=== PATIENT | male | born 1960 | race Caucasian/White ===

== ENCOUNTER 2017-11-14 06:44 | Emergency (ER) | payer OTHER ==
[2017-11-14] MEDS ORDERED: ONDANSETRON 4 MG/2 ML VIAL ONE (07:41)
[2017-11-14] MEDS ORDERED: NA CHLORIDE 0.9% 1,000 ML ONE (07:41)
[2017-11-14] MEDS ORDERED: TERBUTALINE SULF 1 MG/1ML ONE (07:41)
[2017-11-14] MEDS ORDERED: FENTANYL CITR 100 MCG/2 ML ONE (07:41)
[2017-11-14] MEDS ORDERED: NA CHLORIDE 0.9% 500 ML ONE (07:42)
[2017-11-14] MEDS ORDERED: LIDOCAINE 1% MPF 5 ML VIAL ONE (07:57)
[2017-11-14] MEDS ORDERED: TERBUTALINE SULF 1 MG/1ML SQ ONE (08:00)
[2017-11-14] MEDS ORDERED: PHENYLEPHRINE HCL SQ SCH (08:00)
[2017-11-14] MEDS ORDERED: NS 0.9% SQ SCH (08:00)
[2017-11-14 08:05] LABS: Absolute Lymphocytes (CBC) 1.3 K/uL (0.7-4.9); Absolute Monocytes 0.8 K/uL (0.1-1.3); Absolute Neutrophil 10.5 K/uL (1.8-8.0); Basophils % 0.5 % (0-1.3); Eosinophils % 0.4 % (0-4.4); Hematocrit 43.2 % (39.6-49.0); MCH 28.9 pg (27.0-35.0); MCV 85.8 fL (80-100); MPV 8.7 fL (7.6-11.3); Monocytes % 6.5 % (3.3-12.3); RBC Red Blood Cell Count 5.04 M/uL (4.33-5.43)
[2017-11-14 08:06] LABS: Protime INR 1.08
[2017-11-14] MEDS ORDERED: CEFAZOLIN/SWI 1gm 1 GM/10 ML SYR ONE (08:09)
--- NOTE | 2017-11-14 08:19 | RAD REPORT ---
EXAM DESCRIPTION: RAD - Chest Single View - 11/14/2017 8:02 am CLINICAL HISTORY: Cough COMPARISON: March 2012 TECHNIQUE: AP portable chest image was obtained 0751 hours . FINDINGS: Lung volumes are low. No focal lung parenchymal process. Cardiomediastinal silhouette and vasculature within normal limits for shallow inspiration and large body habitus. Heart and vasculatur e are normal. No measurable pleural effusion and no pneumothorax. No gross bony abnormality seen. No acute aortic findings suspected. IMPRESSION: No acute cardiopulmonary process. No significant interval change.
[2017-11-14 08:22] LABS: ALT/SGPT 25 U/L (12-78); AST/SGOT 18 U/L (15-37); Albumin 3.7 g/dL (3.4-5.0); Alkaline Phosphatase 86 U/L (45-117); BUN Blood Urea Nitrogen 11 mg/dL (7-18); Bicarbonate 28 mmol/L (21-32); Bilirubin Direct 0.1 mg/dL (0-0.2); Bilirubin Total 0.4 mg/dL (0.2-1.0); CKMB Creatine Kinase MB < 1.0 ng/mL (0.3-3.6); Creatine Phosphokinase 131 U/L (39-308); Glucose Level 119 mg/dL (74-106); NT PRO-BNP 38 pg/mL (<125); Potassium 4.1 mmol/L (3.5-5.1); Protein, Total 7.9 g/dL (6.4-8.2); Sodium Level 136 mmol/L (136-145)
--- NOTE | 2017-11-14 08:39 | ER ---
Nurse's Notes [facility] Name: Tariq Garcia Age: 57 yrs Sex: Male : 1960 Arrival Date: 11/14/2017 Time: 06:45 Bed 5 Private MD: Mango Forte Diagnosis: Priapism, drug-induced;Priapism;Type 2 diabetes mellitus Presentation: 11/14 06:52 Presenting complaint: Patient states: I injected "empower" medication for ED in to my la1 penis last night around 1130 last night and I had a full erection for 4 hours and it is still not going down all the way. Transition of care: patient was not received from another setting of care. Onset of symptoms was November 14, 2017. Risk Assessment: Do you want to hurt yourself or someone else? Patient reports no desire to harm self or others. Initial Sepsis Screen: Does the patient meet any 2 criteria? No. Patient's initial sepsis screen is negative. Does the patient have a suspected source of infection? No. Patient's initial sepsis screen is negative. Care prior to arrival: None. 06:52 Method Of Arrival: Ambulatory la1 06:52 Acuity: ELA 2 la1 Historical: - Allergies: 06:53 Morphine; la1 - Home Meds: 07:15 Empower (Papaverine HCL 150mg, phentolamine Mesylate 10mg, Prostaglandin E1 100mcg, aa5 Atropine Sulfate 1mg) for Erectile dysfunction [Active]; methocarbamol 500 mg Oral tab twice a day [Active]; tramadol 50 mg Oral tab twice a day [Active]; metformin 500 mg Oral tab 1 tab 2 times per day [Active]; levothyroxine 50 mcg tab 1 tab once daily [Active]; fluoxetine 60 mg oral tab once daily [Active]; atorvastatin 20 mg oral tab 1 tab once daily [Active]; oxybutynin chloride 5 mg Oral tab 2 times per day [Active]; lisinopril 40 mg Oral tab 1 tab once daily [Active]; tadalafil oral 7mg Daily oral [Active]; Sudafed 120mg Oral [Active]; - PMHx: 06:53 Diabetes - NIDDM; Hypothyroidism; Hypertension; la1 - Immunization history:: Adult Immunizations up to date. - Social history:: Smoking status: Patient/guardian denies using tobacco. - Ebola Screening: : No symptoms or risks identified at this time. Screenin:05 Abuse screen: Denies threats or abuse. Nutritional screening: No deficits noted. jb4 Tuberculosis screening: No symptoms or risk factors identified. Fall Risk None identified. Assessment: 07:05 General: Appears in no apparent distress. uncomfortable, Behavior is calm, cooperative, jb4 appropriate for age. Pain: Complains of pain in Penis Pain does not radiate. Pain currently is 10 out of 10 on a pain scale. at worst was 10 out of 10 on a pain scale. Quality of pain is described as throbbing, Pain began 2330 last night. Is continuous. Neuro: Level of Consciousness is awake, alert, obeys commands, Oriented to person, place, time, situation. Cardiovascular: Heart tones S1 S2 present Patient's skin is warm and dry. Respiratory: Airway is patent Respiratory effort is even, unlabored, Respiratory pattern is regular, symmetrical, Breath sounds are clear bilaterally. GI: No signs and/or symptoms were reported involving the gastrointestinal system. : Pt with erection. States " I have had this erection for 7-8 hours.". Pain reported. No discoloration noted. Reports Difficulty urinating. EENT: No signs and/or symptoms were reported regarding the EENT system. Derm: Skin is intact, Skin is pink, warm \\T\\ dry. Musculoskeletal: No signs and/or symptoms reported regarding the musculoskeletal system. 08:45 Reassessment: Patient and/or family updated on plan of care and expected duration. Pain aa5 level reassessed. Patient is alert, oriented x 3, equal unlabored respirations, skin warm/dry/pink. Patient states feeling better. Pain: Pain currently is 5 out of 10 on a pain scale. 09:15 Reassessment: Patient and/or family updated on plan of care and expected duration. Pain aa5 level reassessed. Patient is alert, oriented x 3, equal unlabored respirations, skin warm/dry/pink. Patient states symptoms have improved. Pt states "my penis is back to normal now" . Pain: Pain currently is 2 out of 10 on a pain scale. 09:30 Reassessment: Notified pt of need to collect urine, pt states "I can't pee right now, I aa5 don't think I have any urine", was notified and VO for bladder scan was obtained. . 09:35 Reassessment: Bladder scan completed, TV: 82 cc, was notified and states to d/c pt aa5 home now. . Vital Signs: 06:53 BP 139 / 100; Pulse 121; Resp 16; Temp 98.4; Pulse Ox 96% on R/A; Weight 138.35 kg; la1 Height 5 ft. 7 in. (170.18 cm); 07:30 BP 135 / 102; Pulse 112; Resp 18 S; Pulse Ox 96% on R/A; aa5 08:00 BP 121 / 91; Pulse 105; Resp 16 S; Pulse Ox 97% on 2 lpm NC; aa5 08:30 BP 134 / 94; Pulse 115; Resp 18 S; Pulse Ox 97% on 2 lpm NC; aa5 08:45 BP 113 / 76; Pulse 112; Resp 14 S; Pulse Ox 96% on 2 lpm NC; aa5 09:15 BP 105 / 82; Pulse 105; Resp 15; Pulse Ox 96% on R/A; jb1 06:53 Body Mass Index 47.77 (138.35 kg, 170.18 cm) la1 ED Course: 06:45 Patient arrived in ED. ds1 06:53 Triage completed. la1 06:54 Arm band placed on left wrist. la1 06:56 Mango Forte DO is Private Physician. ds1 07:05 Patient has correct armband on for positive identification. Placed in gown. Bed in low jb4 position. Call light in reach. Side rails up X 1. Pulse ox on. NIBP on. 07:10 Inserted saline lock: 20 gauge in right antecubital area, using aseptic technique. jb4 Blood collected. 07:12 Tariq Krueger, RN is Primary Nurse. jb4 07:20 Stanley Zuniga MD is Attending Physician. pankaj 08:01 X-ray completed. Portable x-ray completed in exam room. kp1 08:01 XRAY Chest (1 view) In Process Unspecified. EDMS 08:30 aspiration of the corpus cavernosum, 40 cc aspirated to right side and 19 cc aspirated aa5 to left side by Dr. Li (urologist). Pt tolerated well. Significant improvement of symptoms. 08:37 Mango Forte DO is Referral Physician. pankaj 08:37 Janelle Li MD is Referral Physician. pankaj 09:52 Initial lab(s) drawn, by me, sent to lab. IV discontinued, intact, bleeding controlled. jb4 Administered Medications: 07:40 Drug: Zofran 4 mg Route: IVP; Site: right antecubital; jb4 08:20 Follow up: Response: No adverse reaction jb4 07:43 Drug: fentaNYL (PF) 50 mcg Route: IVP; Site: right antecubital; jb4 08:20 Follow up: Response: No adverse reaction jb4 07:50 Drug: Terbutaline 0.5 mg Route: Sub-Q; Site: right upper arm; jb4 08:20 Follow up: Response: No adverse reaction jb4 07:51 Drug: NS 0.9% 1000 ml Route: IV; Rate: 125 ml/hr; Site: right antecubital; jb4 09:53 Follow up: Response: No adverse reaction; IV Status: Completed infusion jb4 07:52 Drug: NS 0.9% 500 ml Route: IV; Rate: bolus; Site: right antecubital; jb4 08:40 Follow up: Response: No adverse reaction; IV Status: Completed infusion jb4 07:55 Not Given (Pt reports taking Pseudoephedrine 120mg just MD TAZ notified): aa5 Pseudoephedrine 60 mg PO once 08:05 Drug: Ancef 1 grams Route: IVPB; Site: right antecubital; jb4 08:35 Follow up: Response: No adverse reaction; IV Status: Completed infusion jb4 08:30 Drug: Phenylephrine 0.6 mg {Note: administered to penis intermittently by Dr. Li aa5 during aspiration of the corpus cavernosum.} Route: IV; Rate: calculated rate; Site: Other; 09:23 Follow up: Response: No adverse reaction; IV Status: Completed infusion jb4 08:46 Drug: fentaNYL (PF) 50 mcg Route: IVP; Site: right antecubital; aa5 09:23 Follow up: Response: No adverse reaction jb4 Outcome: 08:38 Discharge ordered by . [facility] 09:51 Discharged to home ambulatory. jb4 09:51 Condition: stable 09:51 Discharge instructions given to patient, family, Instructed on discharge instructions, follow up and referral plans. medication usage, Demonstrated understanding of instructions, follow-up care, medications, Prescriptions given X 2. 09:52 Patient left the ED. jb4 Signatures: Dispatcher [employer] EDMS DanielleFan rudolph jb1 Stanley Zuniga MD MD cha Sanford, Demi ds1 Janet English, RN RN aa5 Andrade Amezquita RN RN la1 Tariq Krueger, DEANNA RN jb4 Tona Smith kp1 Corrections: (The following items were deleted from the chart) 08:55 08:30 aspiration of the corpus callosum, 40 cc aspirated to right side and 19 cc aa5 aspirated to left side by Dr. Li (urologist). Pt tolerated well. Significant improvement of symptoms. aa5 09:20 09:20 Response: No adverse reaction jb4 jb4
--- NOTE | 2017-11-14 08:39 | EDPHYS ---
Physician Documentation [facility] Name: Tariq Garcia Age: 57 yrs Sex: Male : 1960 Arrival Date: 11/14/2017 Time: 06:45 Bed 5 Private MD: [facility] ED Physician Stanley Zuniga HPI: 11/14 07:29 This 57 yrs old Male presents to ER via Ambulatory with complaints of Penile pankaj Pain. Historical: - Allergies: 06:53 Morphine; la1 - Home Meds: 07:15 Empower (Papaverine HCL 150mg, phentolamine Mesylate 10mg, Prostaglandin E1 100mcg, aa5 Atropine Sulfate 1mg) for Erectile dysfunction [Active]; methocarbamol 500 mg Oral tab twice a day [Active]; tramadol 50 mg Oral tab twice a day [Active]; metformin 500 mg Oral tab 1 tab 2 times per day [Active]; levothyroxine 50 mcg tab 1 tab once daily [Active]; fluoxetine 60 mg oral tab once daily [Active]; atorvastatin 20 mg oral tab 1 tab once daily [Active]; oxybutynin chloride 5 mg Oral tab 2 times per day [Active]; lisinopril 40 mg Oral tab 1 tab once daily [Active]; tadalafil oral 7mg Daily oral [Active]; Sudafed 120mg Oral [Active]; - PMHx: 06:53 Diabetes - NIDDM; Hypothyroidism; Hypertension; la1 - Immunization history:: Adult Immunizations up to date. - Social history:: Smoking status: Patient/guardian denies using tobacco. - Ebola Screening: : No symptoms or risks identified at this time. ROS: 07:36 Constitutional: Negative for fever, chills, and weight loss, Eyes: Negative for injury, pankaj pain, redness, and discharge, ENT: Negative for injury, pain, and discharge, Neck: Negative for injury, pain, and swelling, Cardiovascular: Negative for chest pain, palpitations, and edema, Respiratory: Negative for shortness of breath, cough, wheezing, and pleuritic chest pain, Abdomen/GI: Negative for abdominal pain, nausea, vomiting, diarrhea, and constipation, Back: Negative for injury and pain, MS/Extremity: Negative for injury and deformity, Skin: Negative for injury, rash, and discoloration, Neuro: Negative for headache, weakness, numbness, tingling, and seizure, Psych: Negative for depression, anxiety, suicide ideation, homicidal ideation, and hallucinations, Allergy/Immunology: Negative for hives, rash, and allergies, Endocrine: Negative for neck swelling, polydipsia, polyuria, polyphagia, and marked weight changes, Hematologic/Lymphatic: Negative for swollen nodes, abnormal bleeding, and unusual bruising. 07:36 : Positive for penile pain, of the head of penis and shaft of penis. Exam: 07:36 Constitutional: This is a well developed, well nourished patient who is awake, alert, pankaj and in no acute distress. Head/Face: Normocephalic, atraumatic. Eyes: Pupils equal round and reactive to light, extra-ocular motions intact. Lids and lashes normal. Conjunctiva and sclera are non-icteric and not injected. Cornea within normal limits. Periorbital areas with no swelling, redness, or edema. ENT: Nares patent. No nasal discharge, no septal abnormalities noted. Tympanic membranes are normal and external auditory canals are clear. Oropharynx with no redness, swelling, or masses, exudates, or evidence of obstruction, uvula midline. Mucous membranes moist. Neck: Trachea midline, no thyromegaly or masses palpated, and no cervical lymphadenopathy. Supple, full range of motion without nuchal rigidity, or vertebral point tenderness. No Meningismus. Chest/axilla: Normal chest wall appearance and motion. Nontender with no deformity. No lesions are appreciated. Cardiovascular: Regular rate and rhythm with a normal S1 and S2. No gallops, murmurs, or rubs. Normal PMI, no JVD. No pulse deficits. Respiratory: Lungs have equal breath sounds bilaterally, clear to auscultation and percussion. No rales, rhonchi or wheezes noted. No increased work of breathing, no retractions or nasal flaring. Abdomen/GI: Soft, non-tender, with normal bowel sounds. No distension or tympany. No guarding or rebound. No evidence of tenderness throughout. Back: No spinal tenderness. No costovertebral tenderness. Full range of motion. Skin: Warm, dry with normal turgor. Normal color with no rashes, no lesions, and no evidence of cellulitis. MS/ Extremity: Pulses equal, no cyanosis. Neurovascular intact. Full, normal range of motion. Neuro: Awake and alert, GCS 15, oriented to person, place, time, and situation. Cranial nerves II-XII grossly intact. Motor strength 5/5 in all extremities. Sensory grossly intact. Cerebellar exam normal. Normal gait. Psych: Awake, alert, with orientation to person, place and time. Behavior, mood, and affect are within normal limits. 07:36 : Male external genitalia: swelling, penile, tenderness, of the head of penis and shaft of penis is noted. Vital Signs: 06:53 BP 139 / 100; Pulse 121; Resp 16; Temp 98.4; Pulse Ox 96% on R/A; Weight 138.35 kg; la1 Height 5 ft. 7 in. (170.18 cm); 07:30 BP 135 / 102; Pulse 112; Resp 18 S; Pulse Ox 96% on R/A; aa5 08:00 BP 121 / 91; Pulse 105; Resp 16 S; Pulse Ox 97% on 2 lpm NC; aa5 08:30 BP 134 / 94; Pulse 115; Resp 18 S; Pulse Ox 97% on 2 lpm NC; aa5 08:45 BP 113 / 76; Pulse 112; Resp 14 S; Pulse Ox 96% on 2 lpm NC; aa5 09:15 BP 105 / 82; Pulse 105; Resp 15; Pulse Ox 96% on R/A; jb1 06:53 Body Mass Index 47.77 (138.35 kg, 170.18 cm) la1 Procedures: 08:41 Performed aspiration and injection by Dr. Li. [facility] MDM: 07:20 Patient medically screened. [facility] 07:37 Data reviewed: vital signs, nurses notes, lab test result(s), EKG, radiologic studies, pankaj plain films. 11/14 07:25 Order name: Basic Metabolic Panel [facility] 11/14 07:25 Order name: CBC with Diff [facility] 11/14 07:25 Order name: Ckmb [facility] 11/14 07:25 Order name: CPK [facility] 11/14 07:25 Order name: LFT's [facility] 11/14 07:25 Order name: Magnesium [facility] 11/14 07:25 Order name: NT PRO-BNP [facility] 11/14 07:25 Order name: PT-INR [facility] 11/14 07:25 Order name: Ptt, Activated [facility] 11/14 07:25 Order name: Troponin (emerg Dept Use Only) [facility] 11/14 07:25 Order name: XRAY Chest (1 view) [facility] 11/14 07:25 Order name: EKG; Complete Time: 07:26 [facility] 11/14 07:25 Order name: Cardiac monitoring; Complete Time: 07:30 [facility] 11/14 07:25 Order name: EKG - Nurse/Tech; Complete Time: 07:44 [facility] 11/14 07:25 Order name: IV Saline Lock; Complete Time: 07:30 [facility] 11/14 07:25 Order name: Labs collected and sent; Complete Time: 07:54 [facility] 11/14 07:25 Order name: O2 Per Protocol; Complete Time: 07:30 [facility] 11/14 07:25 Order name: O2 Sat Monitoring; Complete Time: 07:31 [facility] 11/14 07:36 Order name: Oxygen; Complete Time: 07:54 [facility] 11/14 08:00 Order name: NPO; Complete Time: 08:01 [facility] Administered Medications: 07:40 Drug: Zofran 4 mg Route: IVP; Site: right antecubital; jb4 08:20 Follow up: Response: No adverse reaction jb4 07:43 Drug: fentaNYL (PF) 50 mcg Route: IVP; Site: right antecubital; jb4 08:20 Follow up: Response: No adverse reaction jb4 07:50 Drug: Terbutaline 0.5 mg Route: Sub-Q; Site: right upper arm; jb4 08:20 Follow up: Response: No adverse reaction jb4 07:51 Drug: NS 0.9% 1000 ml Route: IV; Rate: 125 ml/hr; Site: right antecubital; jb4 09:53 Follow up: Response: No adverse reaction; IV Status: Completed infusion jb4 07:52 Drug: NS 0.9% 500 ml Route: IV; Rate: bolus; Site: right antecubital; jb4 08:40 Follow up: Response: No adverse reaction; IV Status: Completed infusion jb4 07:55 Not Given (Pt reports taking Pseudoephedrine 120mg just MD TAZ notified): aa5 Pseudoephedrine 60 mg PO once 08:05 Drug: Ancef 1 grams Route: IVPB; Site: right antecubital; jb4 08:35 Follow up: Response: No adverse reaction; IV Status: Completed infusion jb4 08:30 Drug: Phenylephrine 0.6 mg {Note: administered to penis intermittently by Dr. Li aa5 during aspiration of the corpus cavernosum.} Route: IV; Rate: calculated rate; Site: Other; 09:23 Follow up: Response: No adverse reaction; IV Status: Completed infusion jb4 08:46 Drug: fentaNYL (PF) 50 mcg Route: IVP; Site: right antecubital; aa5 09:23 Follow up: Response: No adverse reaction jb4 Disposition: 11/14/17 08:38 Discharged to Home. Impression: Priapism, drug-induced, Priapism, Type 2 diabetes mellitus. - Condition is Stable. - Discharge Instructions: Priapism, Type 2 Diabetes Mellitus, Self Care, Adult, Type 2 Diabetes Mellitus, Self Care, Adult, [id number]. - Prescriptions for Keflex 500 mg Oral Capsule - take 1 capsule by ORAL route every 6 hours for 10 days; 28 capsule. Tylenol- Codeine #3 300-30 mg Oral Tablet - take 2 tablets by ORAL route every 6 hours As needed; 20 tablet. - Medication Reconciliation Form, Thank You Letter, Antibiotic Education, Prescription Opioid Use form. - Follow up: Mango Forte DO; When: 2 - 3 days; Reason: Recheck today's complaints, Continuance of care, Re-evaluation by your physician. Follow up: Janelle Li MD; When: 2 - 3 days; Reason: Recheck today's complaints, Continuance of care, Re-evaluation by your physician. - Problem is new. - Symptoms have improved. Signatures: Dispatcher [employer] EDMS Stanley Zuniga MD MD cha Calderon, Audri RN RN aa5 Andrade Amezquita RN RN la1 Tariq Krueger RN RN jb4 Corrections: (The following items were deleted from the chart) 08:41 08:38 11/14/2017 08:38 Discharged to Home. Impression: Priapism, drug-induced; pankaj Priapism. Condition is Stable. Forms are Medication Reconciliation Form, Thank You Letter, Antibiotic Education, Prescription Opioid Use. Follow up: Mango Forte; When: 2 - 3 days; Reason: Recheck today's complaints, Continuance of care, Re-evaluation by your physician. Follow up: Janelle Li; When: 2 - 3 days; Reason: Recheck today's complaints, Continuance of care, Re-evaluation by your physician. Problem is new. Symptoms have improved. [facility] 09:40 07:25 Urine Dipstick-Ancillary ordered. [facility] aa5 09:52 08:41 11/14/2017 08:38 Discharged to Home. Impression: Priapism, drug-induced; jb4 Priapism; Type 2 diabetes mellitus. Condition is Stable. Discharge Instructions: Priapism, Type 2 Diabetes Mellitus, Self Care, Adult, Type 2 Diabetes Mellitus, Self Care, Adult, [id number]. Prescriptions for Keflex 500 mg Oral Capsule - take 1 capsule by ORAL route every 6 hours for 10 days; 28 capsule, Tylenol-Codeine #3 300-30 mg Oral Tablet - take 2 tablets by ORAL route every 6 hours As needed; 20 tablet. and Forms are Medication Reconciliation Form, Thank You Letter, Antibiotic Education, Prescription Opioid Use. Follow up: Mango Forte; When: 2 - 3 days; Reason: Recheck today's complaints, Continuance of care, Re-evaluation by your physician. Follow up: Janelle Li; When: 2 - 3 days; Reason: Recheck today's complaints, Continuance of care, Re-evaluation by your physician. Problem is new. Symptoms have improved. [facility]
[2017-11-14 09:58] VITALS: TEMP 98.4
[2017-11-14 10:03] VITALS: O2SAT 96
[2017-11-14 10:04] VITALS: BP 105/82
--- NOTE | 2017-11-14 14:21 | CON ---
History Of Present Illness: A 57-year-old gentleman, a patient of Asmita Briseno, who was on Quad-Mi x and has been using Quad-Mix 0.3 mL for months now, injected himself at 11:30 p.m. last night, had i ntercourse, enjoyed himself and then developed priapism. He took long-acting Sudafed, ice cold showe r as prescribed by Asmita Briseno, but that did not help so he came to the ER about 6 a.m. I was dora led about 7 a.m., came here as soon as I could and he was noted to have a pronounced priapism. In ER , they gave him subcu terbutaline without any resolution. Past Medical History: Diabetes, hypertension, thyroid issues, and prostate cancer. Past Surgical History: Radical retropubic prostatectomy 2 years ago in [place], cholecystectomy. Medications: Metformin, lisinopril. No aspirin. Allergies: HE IS ALLERGIC TO MORPHINE, CAUSES HALLUCINATION, NAUSEA, VOMITING, AND ITCHING. ALSO QU ESTIONABLE ALLERGY TO LATEX. Social History: No tobacco. No smoking. No drug use. Family History: Noncontributory. Review of Systems: A 10-point review of systems otherwise normal. Physical Examination: Vital Signs: Afebrile, stable. Was on a monitor. General Appearance: Alert and oriented. No acute distress. Well-developed male, slightly obese. HEENT: Atraumatic, normocephalic. Chest: Clear. Abdomen: Soft, nontender. : He had an erection about a 9/10 erection. Testicles descended. Prostate: Deferred. Rectal: Deferred. Laboratory Data: None. 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 Plan was to prep and d raped him, use alcohol pads to clean him, injected him with 0.1 mg phenylephrine at the base of the p deborah at 3 and 9 o'clock region. He has a total of 0.4 mg on the right corpora, aspirated 40 mL of da rk venous like blood. Using an 18-gauge syringe and four 10 mL syringe separately and he was semi-er ect still and on the left side we injected 0.2 mg of phenylephrine again for a total of 0.6 mg and th en aspirated 20 mL of dark blood on the left side of the penis defervesced pretty well. After this, he had an erection like 2/10. We will observe the patient for 30 minutes or so. Make sure he is sta ble. Pressure was held for a few minutes after removing the 18-gauge needle. I told the patient he was on high risk for further erectile dysfunction and carpal fibrosis due to long-acting priapism, po ssible that the shots will not work anymore, and he may need a penile prosthesis. Also advised him t o abstain from sex or doing any shots for about a month to make sure the penis heals and then start a t a lower-dose 0.1 mg of 0.3 mg. We will follow up with Asmita Briseno, the Urology nurse practition . RASHAWN/GLENNY Voice ID: [id number] Report ID: [id number]
--- NOTE | 2017-11-15 07:52 | EKG ---
Test Date: 2017-11-14 Test Time: 07:46:53 Soda Clerk: BRENDEN MEASUREMENT RESULTS: Intervals: Rate: 99 MD: 158 QRSD: 94 QT: 354 QTc: 454 [place]: P: 25 MD: 158 QRS: -28 T: 19 INTERPRETIVE STATEMENTS: Normal sinus rhythm Normal ECG Compared to ECG 04/17/2012 03:28:29 No significant changes Electronically Signed On 11-15-17 07:51:07 CDT by Trae Velasquez
== END 2017-11-14 09:52 | disposition home or self-care (01) ==
LOC: ER 06:44
PROC: 0V9 Male Reproductive System, Drainage (ICD-10-PCS; principal; 2017-11-14)
DX: N48.33 Priapism, drug-induced (principal); E11.9 Type 2 diabetes mellitus without complications; Z79.84 Long term (current) use of oral hypoglycemic drugs; I10 Essential (primary) hypertension; Z85.46 Personal history of malignant neoplasm of prostate; Z88.5 Allergy status to narcotic agent
CPT/HCPCS: 36415; 71045; 80048; 80076; 82550; 82553; 83735; 83880; 84484; 85025; 85610; 85730; 93005; 96361; 96365; 96368; 96372; 96375; 99284; J0690; J2405; J3010; J3105; J7030

== ENCOUNTER 2019-04-19 06:21 | Day surgery (SDC) | payer OTHER ==
--- OUTSIDE RECORDS SUMMARY | 2019-04-19 06:23 | XMS REPORT ---
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 Problem History of prostate cancer Z85.46 Active Problem Hyperlipidemia, mixed E78.2 Active Problem Morbid (severe) obesity due to E66.01 Active excess calories Problem Borderline diabetes R73.09 Active Problem Generalized anxiety disorder F41.1 Active Problem Adult BMI 50.0-59.9 kg/sq m Z68.43 Active Problem 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 Problem Nocturnal enuresis N39.44 Active Problem New onset seizure R56.9 Active Problem Bladder incontinence R32 Active Problem Benign essential HTN I10 Active Problem Erectile dysfunction N52.9 Active Problem Chronic back pain M54.9 Active Problem Stress incontinence of urine N39.3 Active Problem HSV-1 (herpes simplex virus 1) B00.9 Active infection Problem Hypothyroidism E03.9 Active Problem Chronic diastolic congestive heart I50.32 Active failure Problem Allergic rhinitis J30.9 Active Problem VANNESA (obstructive sleep apnea) G47.33 Active Medications No Known Medications Results No Known Results Summary Purpose eClinicalWorks Submission
--- OUTSIDE RECORDS SUMMARY | 2019-04-19 06:24 | XMS REPORT ---
:1960 Author Organization [employer]Works Care Team Providers Name Role Phone Jann Mango Provider Role Unavailable Allergies, Adverse Reactions, Alerts Substance Reaction Event Type Latex Gloves Info Not Available Drug Allergy Morphine Sulfate Info Not Available Drug Allergy Problems Problem Type Condition Code Onset Dates Condition Status Assessment Generalized anxiety disorder F41.1 Active Assessment Hyperlipidemia, mixed E78.2 Active Assessment Benign essential HTN I10 Active Assessment Hypothyroidism E03.9 Active Assessment New onset seizure R56.9 Active Assessment Nocturnal enuresis N39.44 Active Assessment Lumbar back pain with radiculopathy M54.16 Active affecting lower extremity Assessment VANNESA (obstructive sleep apnea) G47.33 Active Assessment Chronic diastolic congestive heart I50.32 Active failure Problem VANNESA (obstructive sleep apnea) G47.33 Active Assessment 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 Problem 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 Problem H/O prostatectomy Z90.79 Active Problem Adult BMI 50.0-59.9 kg/sq m Z68.43 Active Problem 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 Problem Lumbar back pain with radiculopathy M54.16 Active affecting lower extremity Problem Generalized anxiety disorder F41.1 Active Problem Erectile dysfunction N52.9 Active Problem Hyperlipidemia, mixed E78.2 Active Assessment History of prostate cancer Z85.46 Active Problem Low testosterone in male R79.89 Active Problem Borderline diabetes R73.09 Active Assessment H/O prostatectomy Z90.79 Active Problem Nocturnal enuresis N39.44 Active Assessment Adult BMI 50.0-59.9 kg/sq m Z68.43 Active Problem New onset seizure R56.9 Active Assessment Morbid (severe) obesity due to E66.01 Active excess calories Problem History of prostate cancer Z85.46 Active Assessment Low testosterone in male R79.89 Active Problem Morbid (severe) obesity due to E66.01 Active excess calories Assessment Borderline diabetes R73.09 Active Problem Benign essential HTN I10 Active Assessment Bladder incontinence R32 Active Problem Hypothyroidism E03.9 Active Assessment HSV-1 (herpes simplex virus 1) B00.9 Active infection Problem Chronic back pain M54.9 Active Assessment Erectile dysfunction N52.9 Active Problem Bladder incontinence R32 Active Assessment Allergic rhinitis J30.9 Active Problem HSV-1 (herpes simplex virus 1) B00.9 Active infection Assessment Chronic back pain M54.9 Active Problem Chronic diastolic congestive heart I50.32 Active failure Problem Allergic rhinitis J30.9 Active Problem Stress incontinence of urine N39.3 Active Medications Medication Code Code Instructions Start End Status Dosage System Date Date Levetiracetam [facility] [place] 14311967311 500 MG Active TAKE ONE TABLET BY MOUTH TWICE A DAY Protonix [facility] [place] 31860700660 40 MG Active TAKE ONE TABLET BY MOUTH DAILY Fluoxetine HCl [facility] [place] 35785574953 20 MG Orally Active 1 capsule TID Tramadol HCl [facility] [place] 69133278717 50 MG Orally Active 1 tablet every 6 hrs as needed Lipitor [facility] [place] 02876405381 20 MG Orally Active 1 tablet Once a day Tylenol with [facility] [place] 03465102978 300-30 MG Active 1 tablet Codeine #3 Orally every 6 as needed hrs Lipitor [facility] [place] 79372310764 20 MG Active TAKE ONE TABLET BY MOUTH DAILY Lasix ND 79244479389 20 MG Orally Active 1 tablet Once a day Trazodone HCl [facility] [place] 19142937935 100 MG Orally Active 1 tablet Once a day at bedtime as needed Levothyroxine ND 78620071834 50 MCG Orally Active 1 tablet Sodium Once a day on an empty stomach in the morning Losartan ND 69993828651 50 MG Orally Active 1 tablet Potassium Once a day Cialis [facility] [place] 35641657355 5 MG Orally Jan 10August 07, Active 1 tablet Once a day 2018 2019 as needed ProAir HFA [facility] [place] 10491081591 108 (90 Base) Active 2 puffs MCG/ACT as needed Inhalation every 6 hrs Losartan [facility] [place] [address]-91 50 MG Active TAKE ONE Potassium TABLET BY MOUTH DAILY Oxybutynin ND 76203105782 5 MG Orally Active 1 tablet Chloride Twice a day Metformin HCl ND 83487907772 500 MG Orally Active 1 tablet BID with a meal Keppra [facility] [place] 86008541059 500 MG Orally Active 1 tablet Twice a day Hydrocodone-Acet ND 56275727152 5-325 MG Orally Active 1 tablet aminophen BID PRN as needed Results No Known Results Summary Purpose eClinicalWorks Submission
--- OUTSIDE RECORDS SUMMARY | 2019-04-19 06:24 | XMS REPORT ---
:1960 Author Organization eClinicalWorks Care Team Providers Name Role Phone Jann Mango Provider Role Unavailable Allergies, Adverse Reactions, Alerts Substance Reaction Event Type Latex Gloves Info Not Available Drug Allergy Morphine Sulfate Info Not Available Drug Allergy Problems Problem Type Condition Code Onset Dates Condition Status Assessment Hypothyroidism E03.9 Active Assessment Generalized anxiety disorder F41.1 Active Assessment New onset seizure R56.9 Active Assessment Benign essential HTN I10 Active Assessment Nocturnal enuresis N39.44 Active Assessment Lumbar back pain with radiculopathy M54.16 Active affecting lower extremity Assessment Low testosterone in male R79.89 Active Assessment VANNESA (obstructive sleep apnea) G47.33 Active Assessment Chronic diastolic congestive heart I50.32 Active failure Assessment Medicare annual wellness visit, Z00.00 Active subsequent Problem VANNESA (obstructive sleep apnea) G47.33 Active [...] Active Problem Hyperlipidemia, mixed E78.2 Active Assessment Allergic rhinitis J30.9 Active Problem Low testosterone in male R79.89 Active Problem Borderline diabetes R73.09 Active Assessment History of prostate cancer Z85.46 Active Problem Nocturnal enuresis N39.44 Active Assessment H/O prostatectomy Z90.79 Active Problem New onset seizure R56.9 Active Assessment Adult BMI 50.0-59.9 kg/sq m Z68.43 Active Problem History of prostate cancer Z85.46 Active Assessment Morbid (severe) obesity due to E66.01 Active excess calories Problem Morbid (severe) obesity due to E66.01 Active excess calories Assessment Bladder incontinence R32 Active Problem Benign essential HTN I10 Active Assessment Hyperlipidemia, mixed E78.2 Active Problem Hypothyroidism E03.9 Active Assessment Erectile dysfunction N52.9 Active Problem Chronic back pain M54.9 Active Assessment Borderline diabetes R73.09 Active Problem Bladder incontinence R32 Active Assessment Chronic back pain M54.9 Active Problem HSV-1 (herpes simplex virus 1) B00.9 Active infection Assessment HSV-1 (herpes simplex virus 1) B00.9 Active infection Problem Chronic diastolic congestive heart I50.32 Active failure Problem Allergic rhinitis J30.9 Active Problem Stress incontinence of urine N39.3 Active Medications Medication Code Code Instructions Start End Status Dosage System Date Date Fluoxetine HCl [facility] 77087621002 20 MG Active TAKE ONE CAPSULE BY MOUTH THREE TIMES A DAY Tramadol HCl [facility] 46034007286 50 MG Orally Active 1 tablet every 6 hrs as needed Trazodone HCl [facility] 00530522963 100 MG Orally Active 1 tablet Once a day at bedtime as needed Metformin HCl [facility] 48997669053 500 MG Orally Active 1 tablet BID with a meal Levothyroxine [facility] 68075671714 50 MCG Orally Active 1 tablet Sodium Once a day on an empty stomach in the morning Protonix [facility] 33627975106 40 MG Active TAKE ONE TABLET BY MOUTH DAILY ProAir HFA [facility] 36134111669 108 (90 Base) Active 2 puffs MCG/ACT as needed Inhalation every 6 hrs Hydrocodone-Acet [facility] [address]-40 5-325 MG Orally Active 1 tablet aminophen BID PRN as needed Fluoxetine HCl [facility] 23636403607 20 MG Orally Active 1 capsule TID Lipitor [facility] 18628893068 20 MG Active TAKE ONE TABLET BY MOUTH DAILY Oxybutynin [facility] 98092502520 5 MG Orally Active 1 tablet Chloride Twice a day Levetiracetam [facility] 92456467664 500 MG Active TAKE ONE TABLET BY MOUTH TWICE A DAY Oxybutynin [facility] 06881242217 5 MG Orally Active 1 tablet Chloride Twice a day Lasix [facility] 78233282097 20 MG Orally Active 1 tablet Once a day Lasix [facility] 44037611995 20 MG Active TAKE ONE TABLET BY MOUTH DAILY Tylenol with [facility] 07337877511 300-30 MG Active 1 tablet Codeine #3 Orally every 6 as needed hrs Lipitor [facility] 55707103566 20 MG Orally Active 1 tablet Once a day Cialis [facility] 07722154510 5 MG Orally Jan 10August 07, Active 1 tablet Once a day 2018 2019 as needed Losartan [facility] 50710866657 50 MG Active TAKE ONE Potassium TABLET BY MOUTH DAILY Keppra [facility] 04053013814 500 MG Orally Active 1 tablet Twice a day Losartan [facility] 12063047122 50 MG Orally Active 1 tablet Potassium Once a day Levothyroxine [facility] 29587682529 50 MCG Orally Active 1 tablet Sodium Once a day on an empty stomach in the morning Results No Known Results Summary Purpose eClinicalWorks Submission
--- OUTSIDE RECORDS SUMMARY | 2019-04-19 06:24 | XMS REPORT ---
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 Problem Lumbar back pain with radiculopathy M54.16 Active affecting lower extremity Problem Erectile dysfunction N52.9 Active Problem Generalized anxiety disorder F41.1 Active Problem Hyperlipidemia, mixed E78.2 Active Problem Borderline diabetes R73.09 Active Problem Low testosterone in male R79.89 Active Problem Nocturnal enuresis N39.44 Active Problem New onset seizure R56.9 Active Problem History of prostate cancer Z85.46 Active Problem Morbid (severe) obesity due to E66.01 Active excess calories Problem Benign essential HTN I10 Active Problem Hypothyroidism E03.9 Active Problem Chronic back pain M54.9 Active Problem Bladder incontinence R32 Active Problem HSV-1 (herpes simplex virus 1) B00.9 Active infection Problem Chronic diastolic congestive heart I50.32 Active failure Assessment Positive colorectal cancer screening R19.5 Active using Cologuard test Problem Allergic rhinitis J30.9 Active Problem VANNESA (obstructive sleep apnea) G47.33 Active Problem Stress incontinence of urine N39.3 Active Problem 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
[2019-04-19] MEDS ORDERED: NA CHLORIDE 0.9% 1,000 ML ONE (06:59)
[2019-04-19] MEDS ORDERED: propofoL 200 MG/20 ML VIAL IV ONE (07:31)
[2019-04-19] MEDS ORDERED: LIDOCAINE 1% MPF 5 ML VIAL ONE (07:31)
[2019-04-19] MEDS ORDERED: LIDOCAINE 1% MPF 2 ML AMPULE ONE (07:40)
--- NOTE | 2019-04-19 08:25 | ENDO RPT ---
[address], [address] COLONOSCOPY PROCEDURE REPORT EXAM DATE: 04/19/2019 PATIENT NAME: Tariq Garcia MR #: [id number] BIRTHDATE: 1960 ATTENDING: Leonardo Ibarra MD STATUS: outpatient [employer] IN[employer]ER: Loretta Olson RN INDICATIONS: The patient is a 59 yr old Male here for a colonoscopy due to COLOGUARD POSITIVE PROCEDURE PERFORMED: Colonoscopy with biopsy and Colonoscopy with hot biopsy polypectomy MEDICATIONS: Per Anesthesia. ESTIMATED BLOOD LOSS: None CONSENT: The patient understands the risks and benefits of the procedure and understands that these risks include, but are not limited to: sedation, allergic reaction, infection, perforation and/or bleeding. Alternative means of evaluation and treatment include, among others: physical exam, x-rays, and/or surgical intervention. The patient elects to proceed with this endoscopic procedure. DESCRIPTION OF PROCEDURE: During intra-op preparation period all mechanical medical equipment was checked for proper function. Hand hygiene and appropriate measures for infection prevention was taken. Procedure, possible complications, alternatives including, but not limited to possibility of bleeding, perforation, tear, infection, sepsis, need for surgery, need for blood transfusion, were explained to the patient. After the risks, benefits and alternatives of the procedure were thoroughly explained, Informed consent was verified, confirmed and timeout was successfully executed by the treatment team. The patient was placed in the left lateral position. A digital rectal exam was performed and revealed hemorrhoids. After appropriate level of anesthesia, the scope was passed. The [id number] ([id number]) endoscope was introduced through the anus and advanced to the cecum, which was identified by transillumination from the light source, the appendix, and the ileocecal valve. The instrument was then slowly withdrawn as the colon was fully examined. Scope withdrawal time was . COLON FINDINGS: A polypoid firable mass was found at approximately 18 cm from anal verge and approximately 2 cm in size. Retroflexed views revealed no abnormalities and Retroflexed views revealed medium hemorrhoids. The scope was then completely withdrawn from the patient and the procedure terminated. ADVERSE EVENTS: There were no complications. IMPRESSIONS: 1. Mass was found 2. External hemorrhoids 3. Internal hemorrhoids RECOMMENDATIONS: 1. await biopsy results 2. follow-up: office 1 week(s) RECALL: for Colonoscopy, pending biopsy results. Leonardo Ibarra MD eSigned: Leonardo Ibarra MD 04/19/2019 8:24 AM cc: Mango Forte MD CPT CODES: ICD9 CODES: PATIENT NAME: Tariq Garcia MR#: [id number]
[2019-04-19 10:13] VITALS: O2SAT 96
[2019-04-19 10:14] VITALS: BP 123/92; TEMP 98.1
== END 2019-04-19 09:27 | disposition home or self-care (01) ==
LOC: OR 06:21
PROVIDERS: ATTEND Surgery
PROC: 0DBE8ZX Excision of Large Intestine, Via Natural or Artificial Opening Endoscopic, Diagnostic (ICD-10-PCS; principal; 2019-04-19 07:30)
DX: C18.9 Malignant neoplasm of colon, unspecified (principal); K64.4 Residual hemorrhoidal skin tags; K64.8 Other hemorrhoids; E11.9 Type 2 diabetes mellitus without complications; E78.5 Hyperlipidemia, unspecified
CPT/HCPCS: 82947; 88305; J2001; J2704; J7030

== ENCOUNTER 2019-09-06 06:35 | Day surgery (SDC) | payer OTHER ==
--- NOTE | 2019-09-04 16:31 | RAD REPORT ---
EXAM DESCRIPTION: Cristela Jerry (2 Views)09/04/2019 4:20 pm CLINICAL HISTORY: Preop/colon cancer/hypertension COMPARISON: 2019 FINDINGS: The lungs appear clear of acute infiltrate. The heart is mildly enlarged IMPRESSION: No acute abnormalities displayed
[2019-09-04 16:43] LABS: Absolute Lymphocytes (CBC) 1.6 K/uL (0.7-4.9); Basophils % 0.6 % (0-1.3); Hematocrit 43.5 % (39.6-49.0); MPV 9.2 fL (7.6-11.3); RBC Red Blood Cell Count 5.22 M/uL (4.33-5.43)
[2019-09-04 16:51] LABS: Potassium 4.2 mmol/L (3.5-5.1)
--- OUTSIDE RECORDS SUMMARY | 2019-09-06 06:28 | XMS REPORT | Clinical Summary ---
:1960 Author Organization [facility] Address [address] [place] [address] Care Team Providers Name Role Phone Asked, Pcp Primary Care Provider Unavailable Allergies Active Allergy Reactions Severity Noted Date Comments Latex Rash Low 06/06/2019 Morphine Anaphylaxis High 06/06/2019 Medications Medication Sig Dispensed Refills Start Date End Date Status metFORMIN Take 500 mg by 0 Activ e (GLUCOPHAGE) 500 mg mouth 2 (two) tablet times a day with meals. pantoprazole Take 40 mg by 0 Act melisa (PROTONIX) 40 MG EC mouth daily. tablet losartan (COZAAR) 50 Take 50 mg by 0 Active MG tablet mouth daily. furosemide (LASIX) 20 Take 20 mg by 0 Active mg tablet mouth 2 (two) times a day. levothyroxine Take 50 mcg by 0 A ctive (SYNTHROID) 50 mcg mouth daily. tablet atorvastatin Take 20 mg by 0 Act melisa (LIPITOR) 20 MG mouth daily. tablet Default OP ins oxybutynin (DITROPAN) Take 5 mg by 0 Active 5 MG tablet mouth 2 (two) times a day. levETIRAcetam Take 500 mg by 0 A ctive (KEPPRA) 500 MG mouth 2 (two) tablet times a day. FLUoxetine (PROzac) Take 60 mg by 0 Active 10 MG capsule mouth daily. HYDROcodone-acetamino Take 1 tablet by 0 Active phen (NORCO) 5-325 mg mouth 2 (two) per times a day tabletIndications: .acute pain. acute pain tadalafiL (CIALIS) 5 Take 5 mg by 0 Active MG tablet mouth daily as needed. metroNIDAZOLE Take 1 tablet 3 tablet 0 05/23/2019 05/24/2019 (FLAGYL) 500 MG (500 mg total) tablet by mouth take as directed (bowel prep) for up to 1 day. Take 1 tablet at 2 pm, 3pm, and 10 pm night prior to sx neomycin (MYCIFRADIN) Take 1 tablet 6 tablet 0 05/23/2019 500 mg tablet (500 mg total) by mouth take as directed (preop) for up to 1 day. 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 Last Filed Vital Signs Vital Sign Reading Time Taken Comments Blood Pressure - - Pulse - - Temperature - - Respiratory Rate - - Oxygen Saturation - - Inhaled Oxygen Concentration - - Weight 147 kg (325 lb) 06/06/2019 12:16 PM CDT Height 170.2 cm (5' 7") 06/06/2019 12:16 PM CDT Body Mass Index 50.9 06/06/2019 12:16 PM CDT Plan of Treatment Health Maintenance Due Date Last Done Comments COLONOSCOPY SCREENING 2011 SHINGLES VACCINES (#1) 2011 INFLUENZA VACCINE 10/28/2019 Procedures Procedure Name Priority Date/Time Associated Comments Diagnosis CT CHEST W CONTRAST Routine 06/06/2019 1:02 PM Malignant neop lasm Results for this ABDOMEN W CONTRAST CDT of rectum (HCC) proced ure are in PELVIS W CONTRAST the result s section. ESTIMATED GFR Routine 06/06/2019 12:28 PM Results for this CDT procedure are i n the results section. POC CREATININE Routine 06/06/2019 12:28 PM Result s for this CDT procedure are i n the results section. after 09/05/[address] Chest W Contrast Abdomen W Contrast Pelvis W Contrast (06/06/2019 1:02 PM CDT) Specimen Narrative Performed At EXAMINATION: CT CHEST W CONTRAST ABDOM EN W CONTRAST PELVIS W CONTRAST RADIANT CLINICAL HISTORY: C20 Malignant neopla sm of rectum, RECTAL CA COMPARISON: None. TECHNIQUE: CT of the chest, abdomen and pelvis with intravenous contrast. CT imaging was performed with iterative reconstruction techniques and/or automated exposure control to reduce rad iation dose. FINDINGS: CHEST: LUNGS and PLEURA: Lungs and airways are normal witho ut focal abnormality. Pleural spaces are clear. HEART and MEDIASTINUM: The ascending thoracic aorta measures 4.7 cm the level of the main pulmonary artery. No mediastinal or hilar adenopathy. Heart and pericardium within normal limits. ABDOMEN AND PELVIS: HEPATOBILIARY: No focal hepatic lesions. No biliary ductal dilation. Prior cholecystectomy. SPLEEN: No splenomegaly. A few calcifi ed granulomas are noted. PANCREAS: No focal masses or ductal di lation. ADRENALS: No adrenal nodules. KIDNEYS: No hydronephrosis, stones or solid masses. GI TRACT: The appendix is unremarkable. There is mild wall thickening of the collapsed rectum. PERITONEUM/RETROPERITONEUM: No free ai r or fluid. No lymphadenopathy. VASCULATURE: Abdominal aorta is nonaneurysmal. There i s mild calcific atherosclerosis of the aorta and major b ranch vessels. PELVIC ORGANS/BLADDER: Unremarkable. BONES AND SOFT TISSUES: Vertebral body hemangiomas a re noted at T7 T9 and L1. Left unilateral gynecomastia is incidentally noted. IMPRESSION: 1.No evidence of distant or hetal metast atic disease. 2.Mild ectasia of the ascending thoracic aorta as detailed above. [facility]-[id number] Dictated and approved by radiology resid ent/fellow: Virgil Gonzalez M.D. I, Fan Simmons MD, personally reviewed the images and resident's/fellow's findings and agree with the final report. Procedure Note Interface, Radiology Results Incoming - 06/06/2019 3:11 PM CDT EXAMINATION: CT CHEST W CONTRAST ABDOMEN W CONTRAST PELVIS W CONTRAST CLINICAL HISTORY: C20 Malignant neoplas m of rectum, RECTAL CA COMPARISON: None. TECHNIQUE: CT of the chest, abdomen and pelvis with intravenous contrast. CT imaging was performed with iterative reconstruction techniques and/or automated exposure control to reduce radiation dose. FINDINGS: CHEST: LUNGS and PLEURA: Lungs and airways are normal without focal abnormality. Pleural spaces are clear. HEART and MEDIASTINUM: The ascending th oracic aorta measures 4.7 cm the level of the main pulmonary artery. No mediastinal or hilar adenopathy. Heart and pericardium within normal limits. ABDOMEN AND PELVIS: HEPATOBILIARY: No focal hepatic lesions . No biliary ductal dilation. Prior cholecystectomy. SPLEEN: No splenomegaly. A few calcifie d granulomas are noted. PANCREAS: No focal masses or ductal dil ation. ADRENALS: No adrenal nodules. KIDNEYS: No hydronephrosis, stones or s olid masses. GI TRACT: The appendix is unremarkable. There is mild wall thickening of the collapsed rectum. PERITONEUM/RETROPERITONEUM: No free air or fluid. No lymphadenopathy. VASCULATURE: Abdominal aorta is nonaneur ysmal. There is mild calcific atherosclerosis of the aorta and major branch vessels. PELVIC ORGANS/BLADDER: Unremarkable. BONES AND SOFT TISSUES: Vertebral body hemangiomas are noted at T7 T9 and L1. Left unilateral gynecomastia is incidentally noted. IMPRESSION: 1.No evidence of distant or hetal metast atic disease. 2.Mild ectasia of the ascending thoracic aorta as detailed above. [facility]-[id number] Dictated and approved by radiology resid ent/fellow: Virgil Gonzalez M.D. I, Fan Simmons MD, personally reviewed t he images and resident's/fellow's findings and agree with the final report. Performing Organization Address City/[facility] Phone Number [facility] [address] [place] [address] Estimated GFR (06/06/2019 12:28 PM CDT) Estimated GFR 83 mL/min/1.73 [facility] Comment: m2 HOSPITAL Catergory Units Interpretation G1 >=90 Normal or high G2 60-89 Mildly decreased G3a 45-59 Mildly to moderately decreas ed G3b 30-44 Moderately to severely decre ased G4 15-29 Severely decreased G5 <15 Kidney failure The eGFR was calculated using the Chronic Kidney Disea se Epidemiology Collaboration (CKD-EPI) equation. Interpretation is based on recommendations of the National Kidney Foundation-Kidney Disease Outcomes Yvon lity Initiative (NKF-KDOQI) published in 2014. Specimen Blood Performing Organization Address City/State/Zipcode Phone Number [facility] DEPARTMENT OF PATHOLOGY AND [address], [place] [address] [facility] [address] [place] [address] POC creatinine (06/06/2019 12:28 PM CDT) POC creatinine 1.0 0.7 - 1.2 [facility] Comment: mg/dl HOSPITAL Expedition Supervisor Name: Suri Vang Device ID: [id number] Specimen Blood Performing Organization Address City/State/Zipcode Phone Number [facility] DEPARTMENT OF PATHOLOGY AND [address], [place] [address] [facility] [address] [place] [address] after 09/05/2018 Insurance Payer Benefit Plan / Subscriber ID Effective Dates Phone Addre ss Type Group MEDICARE MEDICARE PART A xxxxxxxxxxx 2018-Present [place], [place] Medicare AND B Advance Directives For more information, please contact: [phone] Type Date Recorded Patient Rn Appeals Explanati on Advance Directives, Living Will and Medical Power of Transit Man
--- OUTSIDE RECORDS SUMMARY | 2019-09-06 06:30 | XMS REPORT ---
:1960 Author Organization [employer] Care Team Providers Name Role Phone Jann [facility] Provider Role Unavailable Allergies, Adverse Reactions, Alerts Substance Reaction Event Type Latex Gloves Info Not Available Drug Allergy Morphine Sulfate Info Not Available Drug Allergy Problems Problem Type Condition Code Onset Dates Condition Statu s Assessment VANNESA (obstructive sleep apnea) G47.33 Active Assessment Lumbar back pain with radiculopathy M54.16 Active affecting lower extremity Assessment Pre-operative clearance Z01.818 Acti ve Assessment Chronic diastolic congestive heart I50.32 Active failure Assessment 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 Assessment Adenocarcinoma, colon C18.9 Active Assessment Panic disorder [episodic paroxysmal F41.0 Active anxiety] Problem Borderline diabetes R73.09 Active Problem Hyperlipidemia, mixed E78.2 Active Problem Erectile dysfunction N52.9 Active Problem Benign essential HTN I10 Active Problem Bladder incontinence R32 Active Problem Chronic back pain M54.9 Active Problem Stress incontinence of urine N39.3 Active Problem HSV-1 (herpes simplex virus 1) B00.9 Active infection Problem Hypothyroidism E03.9 Active Problem Allergic rhinitis J30.9 Active Problem 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 Problem H/O prostatectomy Z90.79 Active Problem Chronic diastolic congestive heart I50.32 Active failure Problem VANNESA (obstructive sleep apnea) G47.33 Active Assessment Low testosterone in male R79.89 Act melisa Assessment Acute stress reaction F43.0 Active Assessment Encounter for other preprocedural Z01.818 Active examination Assessment Adult BMI 50.0-59.9 kg/sq m Z68.43 Active Assessment H/O prostatectomy Z90.79 Active Assessment History of prostate cancer Z85.46 A ctive Assessment Allergic rhinitis J30.9 Active Problem 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 Assessment Morbid (severe) obesity due to E66.01 Active excess calories Problem Adult BMI 50.0-59.9 kg/sq m Z68.43 Active Problem Morbid (severe) obesity due to E66.01 Active excess calories Problem History of prostate cancer Z85.46 A ctive Problem Nocturnal enuresis N39.44 Active Problem Acute stress reaction F43.0 Active Problem Adenocarcinoma, colon C18.9 Active Problem Panic disorder [episodic paroxysmal F41.0 Active anxiety] Assessment Bladder incontinence R32 Active Problem New onset seizure R56.9 Active Assessment Borderline diabetes R73.09 Active Problem Generalized anxiety disorder F41.1 Active Assessment Erectile dysfunction N52.9 Active Problem Low testosterone in male R79.89 Act melisa Assessment HSV-1 (herpes simplex virus 1) B00.9 Active infection Problem Lumbar back pain with radiculopathy M54.16 Active affecting lower extremity Assessment Chronic back pain M54.9 Active Assessment New onset seizure R56.9 Active Assessment Nocturnal enuresis N39.44 Active Assessment Hypothyroidism E03.9 Active Assessment Benign essential HTN I10 Active Assessment Hyperlipidemia, mixed E78.2 Active Assessment Generalized anxiety disorder F41.1 Active Medications Medication Code Code Instructions Start End Status Dosage System Date Date ProAir HFA [facility] [id number] 108 (90 Base) Active 2 p uffs MCG/ACT as needed Inhalation every 6 hrs Hydrocodone-Acet ND 77737342456 5-325 MG Orally Act melisa 1 tablet aminophen BID PRN as needed Levothyroxine ND 16507874720 50 MCG Orally Active 1 tablet Sodium Once a day on an empty stomach in the morning Losartan [facility] 35608540457 50 MG Orally Active 1 tabl et Potassium Once a day Fluoxetine HCl [facility] 09855821894 20 MG Active TAKE ONE CAPSULE BY MOUTH THREE TIMES A DAY Losartan [facility] 91800636418 50 MG Active TAKE ONE Potassium TABLET BY MOUTH DAILY Oxybutynin ND 14760179392 5 MG Orally Active 1 tab let Chloride Twice a day Lasix [facility] 57415995927 20 MG Orally Active 1 table t Once a day Metformin HCl ND 81084994128 500 MG Orally Active 1 tablet BID with a meal Lasix [facility] [address]-55 20 MG Active TAKE ONE TABLET BY MOUTH DAILY Protonix [facility] 74499919706 40 MG Active TAKE ONE TABLET BY MOUTH DAILY Lasix [facility] 74574507924 20 MG Active TAKE ONE TABLET BY MOUTH DAILY Diazepam ND 56616375504 2 MG Orally August 28, Active 0.5 every 12 hrs 2020 tablet as PRN severe needed anxiety Cialis [facility] 29493654354 5 MG Orally Active 1 tablet Once a day as needed Trazodone HCl [facility] 19639214442 100 MG Orally Active 1 tablet Once a day at bedtime as needed Oxybutynin [facility] 74860865772 5 MG Orally Active 1 tab let Chloride Twice a day Levetiracetam [facility] 80351265439 500 MG Active TAKE O NE TABLET BY MOUTH TWICE A DAY Lipitor [facility] 61156782563 20 MG Orally Active 1 table t Once a day Keppra [facility] 23747594883 500 MG Orally Active 1 tabl et Twice a day Fluoxetine HCl [facility] 98955588771 20 MG Orally Active 1 capsule TID Tramadol HCl [facility] 47221339916 50 MG Orally Active 1 tablet every 6 hrs as needed Levothyroxine [facility] 11215269201 50 MCG Active TAKE O NE Sodium TABLET BY MOUTH EVERY MORNING ON AN EMPTY STOMACH Losartan [facility] [address]-98 50 MG Active TAKE ONE Potassium TABLET BY MOUTH DAILY Lipitor [facility] 52438335254 20 MG Active TAKE ONE TABLET BY MOUTH DAILY Glucophage [facility] 19970732462 500 MG Orally Active 1 t ablet Twice a day with meals Results No Known Results Summary Purpose [employer]ClinicalWorks Submission
--- OUTSIDE RECORDS SUMMARY | 2019-09-06 06:30 | XMS REPORT | Continuity of Care Document ---
:1960 Author Organization [facility] t Address [address] [place] [address] Care Team Providers Name Role Phone Asked, Pcp Primary Care Physician Unavailable Nilay Linn Attending Clinician Raymundo Rose MD Attending Clinician Payers Payer Name Policy Policy Number Effective Expiration Source Type Date Date MEDICAREMEDICARE PART xxxxxxxxxxx 2018 [place] AND 00:00:00 [place] B[facility]xxx2018[place] Condition Condition Condition Status Onset Resolution Last Treating Co mments Source Name Details Category Date Date Treatment Clinician Date Hypothyroi Hypothyroi Problem Active [facility] Borderline Borderline Problem Active [facility] diabetes diabetes [facility] Allergic Allergic Problem [facility] Stress Stress Problem Active [facility] incontinen incontinen Michelle kes - ce of ce of Memoria urine urine l Outpati ent Clinics Lumbar Lumbar Problem Active [facility] back pain back pain Luke s - with with Memoria radiculopa radiculopa l thy thy Outpati affecting affecting ent lower lower Clinics extremity extremity Erectile Erectile Problem Active [facility] dysfunctio dysfunctio Michelle kes - n n [facility] ent Clinics 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 Outp ati ent Clinics Hyperlipid Hyperlipid Problem Active [facility] emia, emia, [facility] mixed [facility] Chronic Chronic Problem Active [facility] back pain back pain [facility] Bladder Bladder Problem Active [facility] incontinen incontinen Michelle kes - ce ce [facility] Benign Benign Problem Active [facility] essential essential [facility] - HTN HTN [facility] ent Clinics Chronic Chronic Problem Active [facility] diastolic diastolic Luke s - congestive congestive Me moria heart heart l failure failure Outpati ent Clinics VANNESA VANNESA Problem Active [facility] (obstructi (obstructi Michelle kes - ve sleep ve sleep Memori a apnea) apnea) l Outpati ent Clinics Generalize Generalize Problem Active [facility] d anxiety d anxiety [facility] - disorder disorder [facility] a l [facility] Nocturnal Nocturnal Problem Active [facility] enuresis enuresis [facility] Current Current Problem Active [facility] severe severe [facility] - episode of episode of Me moria major major l depressive depressive Ou tpati disorder disorder ent without without Clinics psychotic psychotic features features without without prior prior episode episode New onset New onset Problem Active [facility] seizure seizure [facility] H/O H/O Problem Active [facility] prostatect prostatect Michelle kes - sma sam [facility] History of History of Problem Active [facility] prostate prostate [facility] Morbid Morbid Problem Active [facility] (severe) (severe) [facility] - obesity obesity Memoria due to due to l excess excess Outpati calories calories ent Clinics Adult BMI Adult BMI Problem Active [facility] 50.0-59.9 50.0-59.9 Luke s - kg/sq m kg/sq m [facility] l Outpati ent Clinics Dependence Dependence Problem Active C [facility] on CPAP on CPAP [facility] - ventilatio ventilatio Me moria n n l Outpati ent Clinics Low Low Problem Active [facility] testostero testostero Michelle kes - ne in male ne in male Me moria l Outpati ent Clinics Adenocarci Adenocarci Problem Active [facility] noma, noma, [facility] - colon colon [facility] ent Clinics Panic Panic Problem Active [facility] disorder disorder [facility] - [episodic [episodic Lance kristin paroxysmal paroxysmal l anxiety] anxiety] [facility] Acute Acute Problem Active [facility] stress stress [facility] - reaction reaction Memori a [facility] Allergies, Adverse Reactions, Alerts Allergy Allergy Status Severity Reaction(s) Onset Inactive Treating Comm ents Source Name Type Date Date Clinician Latex Propensi Active Rash 2020-0 Peña ty to 3-10 Methodi adverse 00:00: st reaction 00 s to drug Morphine Propensi Active Anaphylaxis 2020-0 [place] to 3-10 [facility] adverse 00:00: st reaction 00 s to drug morphine DA Active U 2020-0 [facility] [place] 00:00: Health 00 are [facility] st latex DA Active U 2020-0 [facility] 3 [place] 00:00: Health 00 are [facility] TOPICAL DA Active U 2020-0 [facility] STEROIDS 06-04 [place] 00:00: Health 00 are [facility] Latex Adverse Active Info Not [facility] Gloves Reaction Available [facility] Morphine Adverse Active Info Not [facility] t Sulfate Reaction Available Luke [facility] - [facility] Social History Social Habit Start Date Stop Date Quantity Comments Source Sex Assigned At Jade ston Bahai Medications Ordered Filled Start Stop Current Ordering Indication Dosage Frequency Signature Comments Components Source Medication Medication Date Date Medication? Clinician (SIG) Name Name Diazepam Diazepam 2020-0 Yes Mango 0.[address] [address] 6-02 [place] as needed [facility] - 00:00: Memoria 00 [facility] metFORMIN 2020-0 Yes 500mg Q.5D Take 500 Jade ston (GLUCOPHAGE 3-10 mg by Gasper ) 500 mg 12:44: mouth 2 st tablet 00 (two) times a day with meals. FLUoxetine 2020-0 Yes 60mg QD Take 60 mg [place] (PROzac) 10 3-10 by mouth Meth hieu MG capsule 12:43: daily. st 47 HYDROcodone 2020-0 Yes acute pain 1{tbl} Q.5D Take 1 Peña -acetaminop 3-10 tablet by Met fiona calderon (NORCO) 12:43: mouth 2 st 5-325 mg 47 (two) per tablet times a day .acute pain. tadalafiL 2020-0 Yes 5mg Q24H Take 5 mg Jade ston (CIALIS) 5 3-10 by mouth Metho di MG tablet 12:43: daily as st 47 needed. losartan 2020-0 Yes 50mg QD Take 50 mg Jade ston (COZAAR) 50 3-10 by mouth Meth hieu MG tablet 12:43: daily. st 46 furosemide 2020-0 Yes 20mg Q.5D Take 20 mg [place] (LASIX) 20 3-10 by mouth 2 Met hodi mg tablet 12:43: (two) st 46 times a day. levothyroxi 2020-0 Yes 50ug QD Take 50 Jade ston ne 3-10 mcg by Methodi (SYNTHROID) 12:43: mouth st 50 mcg 46 daily. tablet atorvastati 2020-0 Yes 20mg QD Take 20 mg Peña n (LIPITOR) 3-10 by mouth Meth hieu 20 MG 12:43: daily. st tablet 46 Default OP ins oxybutynin 2020-0 Yes 5mg Q.5D Take 5 mg [place] (DITROPAN) 3-10 by mouth 2 Met hodi 5 MG tablet 12:43: (two) st 46 times a day. levETIRAcet 2020-0 Yes 500mg Q.5D Take 500 [place] am (KEPPRA) 3-10 mg by Methodi 500 MG 12:43: mouth 2 st tablet 46 (two) times a day. pantoprazol 2020-0 Yes 40mg QD Take 40 mg Peña e 3-10 by mouth Methodi (PROTONIX) 12:43: daily. st 40 MG EC 45 tablet metroNIDAZO 2020-0 2020- No 500mg Take 1 Ho lulú LE (FLAGYL) 05-23 tablet Metho di 500 MG 00:00: 23:59 ([address] tablet 00 :00 total) by mouth take as directed (bowel prep) for up to 1 day. Take 1 tablet at 2 pm, 3pm, and 10 pm night prior to sx neomycin 2020-0 2020- No 500mg Take 1 [place] (MYCIFRADIN 05-23 tablet Metho di ) 500 mg 00:00: 23:59 ([address] tablet 00 :00 total) by mouth take as directed (preop) for up to 1 day. Take 2 tablets at 2 pm, 3pm, and 10 pm night prior to surger Oxybutynin Oxybutynin 2017-0 Yes Mango [address] [facility] Chloride Chloride 8-29 [place] [facility] - 00:00: Memoria 00 l [facility] ent Clinics Keppra Keppra Yes Mango 1 tablet [facility] [facility] Lipitor Lipitor Yes Mango TAKE ONE [facility] [place] TABLET BY [facility] - MOUTH Memoria DAILY l [facility] ent [facility] Tramadol Tramadol Yes Mango [address] HCl HCl [place] as needed [facility] ProAir HFA ProAir HFA Yes Mango [address] [address] [place] needed [facility] - [facility] Protonix Protonix Yes Mango TAKE ONE [facility] [place] TABLET BY [facility] - MOUTH Memoria DAILY l [facility] ent [facility] Metformin Metformin Yes Mango [address] [address] HCl HCl [place] with a Lukes - meal Memoria l [facility] ent [facility] Trazodone Trazodone Yes Mango [address] HCl HCl [place] at bedtime [facility]ukes - as needed Memoria l [facility] ent Clinics Levothyroxi Levothyroxi Yes Mango [address] ne Sodium ne Sodium [place] on an Paulino es - empty Memoria stomach in l the [facility] morning ent Clinics Fluoxetine Fluoxetine Yes Mango [address] HCl HCl [place] [facility] Clinics Lasix Lasix Yes Mango [address] [place] [facility] ent [facility] Losartan Losartan Yes Mango [address] Potassium Potassium Forte Luke s - Memoria l [facility] ent [facility] Losartan Losartan Yes Mango TAKE ONE [facility] Potassium Potassium [place] TABLET BY [facility] - MOUTH Memoria DAILY l [facility] ent Clinics Hydrocodone Hydrocodone Yes Mango [address] -Acetaminop -Acetaminop [place] as needed [facility] - hen hen Memoria l [facility] ent Clinics Glucophage Glucophage Yes Mango [address] [place] with meals [facility] Clinics Levothyroxi Levothyroxi Yes Mango TAKE ONE [facility] ne Sodium ne Sodium [place] TABLET BY [facility] - MOUTH Memoria EVERY l MORNING ON Outpati AN EMPTY ent STOMACH Clinics Lasix Lasix Yes Mango TAKE ONE [facility] [place] TABLET BY [facility] - MOUTH Memoria DAILY l [facility] ent Clinics Fluoxetine Fluoxetine Yes Mango TAKE ONE [facility] HCl HCl [place] CAPSULE BY [facility] - MOUTH Memoria THREE l TIMES A Outpati DAY ent Clinics Oxybutynin Oxybutynin Yes Mango [address] Chloride Chloride [place] [facility] Cialis Cialis Yes Mango 1 tablet [facility] [place] as needed [facility] Levetiracet Levetiracet Yes Mango TAKE ONE [facility] am am [place] TABLET BY [facility] - MOUTH Memoria TWICE A l DAY [facility] Immunizations Ordered Filled Immunization Date Status Comments Sour e Immunization Name Name Mily Afluria 2018-11-[address] [facility] 00[facility]00 [facility] Vital Signs Vital Name Observation Time Observation Value Comments Source Body height 2019-06-06 12:16:00 170.2 cm Casey Rowland Body weight 2019-06-06 12:16:00 147.419 kg Casey Rowland BMI 2019-06-06 12:16:00 50.90 kg/m2 Casey Rowland Procedures Procedure Date / Time Performed Performing Clinician Sherrie nay CT CHEST W CONTRAST 2019-06-06 13:02:51 Flaquito Rose ABDOMEN W CONTRAST PELVIS W CONTRAST POC CREATININE 2019-06-06 12:28:00 Flaquito Rose ESTIMATED GFR 2019-06-06 12:28:00 Flaquito Rose Plan of Care Planned Activity Planned Date Details Comments Source Future Scheduled 2019-10-28 INFLUENZA VACCINE Mauricioto n Bahai Test 00:00:00 [code = INFLUENZA VACCINE] Future Scheduled 2011 COLONOSCOPY SCREENING Ho [facility] Bahai Test 00:00:00 [code = COLONOSCOPY SCREENING] Future Scheduled 2011 SHINGLES VACCINES [place] Bahai Test 00:00:00 (#1) [code = SHINGLES VACCINES (#1)] Encounters Start End Encounter Admission Attending Care Care Encounter Source Date/Time Date/Time Type Type Clinicians Facility Department ID 2019-08-31 2019-08-31 Outpatient Kirby Bell [id number] [facility] [address] 11:59:00 11:59:[facility] [address] [facility] Family Medicine Medicine [facility] 2019-08-29 2019-08-29 Outpatient Kirby Bell [id number] [address] 09:15:00 09:15:00 t [facility] Drive [facility] Medicine Medicine Outpati ent Clinics 2019-08-24 2019-08-24 [facility] [id number] 10:36:00 10:36:00 [facility] Medicine Outpati ent Clinics 2019-07-12 2019-07-12 [facility] [id number] 10:30:00 10:30:00 t Specialty/U Michelle kes - Specialty rology Memori a /Urology Clinic l Clinic Outpati ent Clinics 2019-07-05 2019-07-05 [facility] [id number] [address] 14:15:00 14:15:00 t [facility] Medicine Outpati ent Clinics 2019-06-06 2019-06-06 Outpatient FLAQUITO ROSE [facility] [id number] [place] 00:00:00 00:00:[address] 2019-04-05 2019-04-05 [facility] [id number] 14:01:00 14:01:00 t [facility] Medicine Outpati ent Clinics 2019-04-05 2019-04-05 [facility] [id number] 10:00:00 10:00:00 t [facility] Drive [facility] Medicine Outpati ent Clinics 2019-03-01 2019-03-01 [facility] [id number] 09:15:00 09:15:00 t [facility] s - Drive [facility] l Medicine Outpati ent Clinics 2019-01-24 2019-01-24 [facility] [id number] 10:34:00 10:34:00 t Specialty/U Michelle kes - Specialty rology Memori a /Urology Clinic l Clinic Outpati ent Clinics 2019-01-10 2019-01-10 [facility] [id number] 10:00:00 10:00:00 t Specialty/U Michelle kes - Specialty rology Memori a /Urology Clinic l Clinic Outpati ent Clinics 2018-12-16 2018-12-16 [facility] [id number] 14:39:00 14:39:00 t Specialty/U Michelle kes - Specialty rology Memori a /Urology Clinic l Clinic Outpati ent Clinics 2018-11-29 2018-11-29 [facility] [id number] 08:45:00 08:45:00 t [place] [employer] [facility] Drive [facility] Family Medicine l Medicine Outpati ent Clinics 2018-06-14 2018-06-14 [facility] [id number] 10:16:00 10:16:00 t Specialty/U Michelle kes - Specialty rology Memori a /Urology Clinic l Clinic Outpati ent Clinics 2018-06-08 2018-06-08 [facility] [id number] 11:13:00 11:13:00 t [facility] - Drive [facility] Medicine Outpati ent Clinics 2018-05-25 2018-05-25 [facility] [id number] 15:26:00 15:26:00 t [place] [employer] [facility] Medicine l Medicine Outpati ent Clinics 2018-05-16 2018-05-16 [facility] [id number] 15:45:00 15:45:00 t [place] [employer] [facility] Drive [facility] Medicine Outpati ent Clinics 2018-05-03 2018-05-03 [facility] [id number] 14:30:00 14:30:00 t [place] [employer] [facility] Drive [facility] Medicine l Medicine Outpati ent Clinics 2018-04-04 2018-04-04 [facility] [id number] 08:15:00 08:15:00 t [place] [employer] [facility] - Drive [facility] Medicine l Medicine Outpati ent Clinics 2017-11-24 2017-11-24 [facility] [id number] 09:00:00 09:00:00 t Specialty/U Michelle kes - Specialty rology Memori a /Urology Clinic l Clinic Outpati ent Clinics 2017-11-17 2017-11-17 [facility] [id number] 15:11:00 15:11:[address] [place] [address] [facility] 2017-11-15 2017-11-15 Outpatient Vonnierose marie Orrjoseph [id number] [facility] 10:30:00 10:30:00 [facility] [employer] [facility] ent [facility] Results Test Description Test Time Test Comments Results Result Sour e Comments SURGICAL 2019-06-26 SPECIMENS 18:14:00 RUN DATE: 06/26/19 [facility] - LAB PAGE 1 RUN TIME: 1814 Specimen Inquiry RUN USER: INTERFACE PATIENT: RA MAST LOC: P.5N POD B U #: [id number] AGE/SX: 59/M ROOM: [facility] RE06/20/19YANETH DR: Flaquito Rose MD : 62 BED: 1 DIS: 06/21/19 STATUS: DIS IN TLOC: SPEC #: [id number] RECD: 06/20/19 STATUS: LINDA ROBIN #: [id number] PALOMA: 06/20/[address]: Flaquito Rose MD ENTERED: 06/20/19 SP TYPE: SURG OTHR DR: ORDERED: PATHGM4, PATH SPEC, H E STAIN HISTOLOGY: TISSUE ID BLK PCS RAYMOND LEV / PROCEDURE DISPOSITION ____ ___ ___ ___ ___ RECTAL BX A 1 1 TISSUES: A. RECTAL BX - Rectal Cancer CLINICAL HISTORY Colorectal Cancer COMMENT Tumor is invading into the submucosa and is focally present at a peripheral tissue edge. No muscularis propria is identified. The above results were discussed with Dr. Rose on June 26, 2019 at 6:00 pm. Multiple tissue levels were examined. This case was reviewed by multiple pathologists in intradepartmental consultation, with concurrence. IC: DAVID, [place], MEK FINAL DIAGNOSIS RECTAL CANCER, EXCISION: - INVASIVE MODERATELY DIFFERENTIATED ADENOCARCINOMA. - Tumor invades into the submucosa. - See comment. GROSS DESCRIPTION The specimen is received in a formalin-filled container labeled with at least two patient identifiers and "rectal cancer". It consists of two irregular pieces of mack-pink and red soft tissue, 0.5 and 1.5 cm. The largest piece is bisected and entirely submitted, along with the smaller piece, in a single cassette. 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 Signed SIGNATURE ON FILE Paulina Shrestha 06/26/19 1814 END OF REPORT SURGICAL 2019-06-26 SPECIMENS 18:14:00 RUN DATE: 07/03/19 [facility] - LAB PAGE 1 RUN TIME: 1407 Specimen Inquiry RUN USER: INTERFACE PATIENT: RA MAST LOC: PJonny5N POD B U #: [id number] AGE/SX: 59/M ROOM: [facility] RE06/20/19REG DR: Flaquito Rose MD : 62 BED: 1 DIS: 06/21/19 STATUS: DIS IN TLOC: SPEC #: [id number] RECD: 06/20/19 STATUS: LINDA SHARDA #: [id number] PALOMA: 06/20/19-[address] [facility] [address]: Flaquito Rose MD ENTERED: 06/20/19 SP TYPE: SURG OTHR DR: ORDERED: PATHGM4, PATH SPEC, H E STAIN HISTOLOGY: TISSUE ID BLK PCS RAYMOND LEV / PROCEDURE DISPOSITION ____ ___ ___ ___ ___ RECTAL BX A 1 1 TISSUES: A. RECTAL BX - Rectal Cancer ADDENDUM FINDINGS Addendum #1 Entered: 07/03/19-6419 The purpose of this addendum is to report results of mismatch repair protein expression by immunohistochemistry. For complete results please see corresponding Integrated Oncology Report ([id number]). DIAGNOSIS: MLH1 - expressed MSH2 - expressed MSH6 - expressed PMS2 Global - expressed These results show no deficiency of the mismatch repair proteins tested. Addendum Signed SIGNATURE ON FILE Lucila Hogan 07/03/19 1407 CLINICAL HISTORY Colorectal Cancer COMMENT Tumor is invading into the submucosa and is focally present at a peripheral tissue edge. No muscularis propria is identified. The above results were discussed with Dr. Rose on June 26, 2019 at 6:00 pm. Multiple tissue levels were examined. This case was reviewed by multiple CONTINUED ON NEXT PAGE RUN DATE: 07/03/19 [facility] - LAB PAGE 2 RUN TIME: 1407 Specimen Inquiry RUN USER: INTERFACE SPEC #: [id number] PATIENT: PRORA GUTIERREZ #[id number] (Continued) COMMENT (Continued) pathologists in intradepartmental consultation, with concurrence. IC: DAVID, ANABEL, ALBERTO FINAL DIAGNOSIS RECTAL CANCER, EXCISION: - INVASIVE MODERATELY DIFFERENTIATED ADENOCARCINOMA. - Tumor invades into the submucosa. - See comment. GROSS DESCRIPTION The specimen is received in a formalin-filled container labeled with at least two patient identifiers and "rectal cancer". It consists of two irregular pieces of mack-pink and red soft tissue, 0.5 and 1.5 cm. The largest piece is bisected and entirely submitted, along with the smaller piece, in a single cassette. /th MICROSCOPIC DESCRIPTION Performed. Signed SIGNATURE ON FILE Ramy Shresthaese 06/26/19 1814 END OF REPORT GLUBED 2019-06-21 11:47:00 Test Item Value Reference Range Interpretation Comme nts GLUBED (test code = GLUBED) 94 MG/DL 70-105 N [id number] 08:13:00 Test Item Value Reference Range Interpretation Comments GLUBED (test code = GLUBED) 114 MG/DL 70-105 H BASIC METABOLIC [id number] 05:14:00 Test Item Value Reference Range Interpretation Comments SODIUM (test code 138 MMOL/L 136-143 N = NA) POTASSIUM (test 3.9 MMOL/L 3.5-5.1 N code = K) CHLORIDE (test 101 MMOL/L 98-107 N code = CL) CARBON DIOXIDE 27 mmol/L 24-31 N (test code = CO2) GLUCOSE (test code 103 mg/dL 70-104 N = GLU) BLOOD UREA 10.3 MG/DL 7.0-21.0 N NITROGEN (test code = BUN) GLOMERULAR >=60 max >60 The estimated FILTRATION RATE estimate glomerular (test code = GFR) filtration rate is computed usingpatient ra ce, age (>18), sex, and serum creatinin e. If anyof the neede d data elements a re missing the Laboratory daphne ot compute an estimation of t he glomerular filtration rate . CREATININE (test 0.9 mg/dL 0.8-1.5 N code = CREAT) CALCIUM (test code 8.8 mg/dL 8.8-10.2 N = CA) CBC W/AUTO [id number] 05:07:00 Test Item Value Reference Range Interpretation Comments WHITE BLOOD CELL (test code = 9.7 x10 3/uL 4.8-10.8 N WBC) RED BLOOD CELL (test code = 4.30 x10 6/uL 4.70-6.10 L RBC) HEMOGLOBIN (test code = HGB) 11.7 g/dL 14.5-20 L HEMATOCRIT (test code = HCT) 37.5 % 42.0-52.0 L MEAN CELL VOLUME (test code = 87.2 fL 80.0-94.0 N MCV) MEAN CELL HGB (test code = MCH) 27.2 pg 27-31 N MEAN CELL HGB CONCENTRATION 31.2 G/DL 33-36.5 L (test code = MCHC) RED CELL DISTRIBUTION WIDTH 13.7 % 12.9-16.9 N (test code = RDW) PLATELET COUNT (test code = 201 150-440 N PLT) MEAN PLATELET VOLUME (test code 10.4 fL 8.9-12.4 N = MPV) NEUTROPHIL % (test code = NT%) 73.5 % 42.2-75.2 N LYMPHOCYTE % (test code = LY%) 15.5 % 20.5-51.1 L MONOCYTE % (test code = MO%) 9.8 % 1.7-9.3 H EOSINOPHIL % (test code = EO%) 0.7 % 0.0-7.0 N BASOPHIL % (test code = BA%) 0.2 % 0-2.5 N NEUTROPHIL # (test code = NT#) 7.11 x10 3/uL 1.80-7.70 N LYMPHOCYTE # (test code = LY#) 1.50 x10 3/uL 1.00-4.80 N MONOCYTE # (test code = MO#) 0.95 x10 3/uL 0.00-0.80 H EOSINOPHIL # (test code = EO#) 0.07 x10 3/uL 0.00-0.45 N BASOPHIL # (test code = BA#) 0.02 x10 3/uL 0.0-0.20 N AG [id number] 04:07:00 Test Item Value Reference Interpretation Comments Range AG CARCINOEMBRYONIC 1.1 ng/mL 0.0-4.7 (test code = CEA) Nonsmokers <3.9 Smokers <5.6[employer] Electrochemilum inescence Immunoassay(ECL IA)Values obtained with d ifferent assay methods o r kitscannot be used interch angeably. Results cannot beinterpreted as absolute peterson dence of the presence orabse nce of malignant disea se.Performed At: [facility] [address] [id number] Esteban Sahni MD Ph:[phone] [id number] 22:39:00 Test Item Value Reference Range Interpretation Comments GLUBED (test code = GLUBED) 101 MG/DL 70-105 N [id number] 17:26:00 Test Item Value Reference Range Interpretation Comments GLUBED (test code = GLUBED) 144 MG/DL 70-105 H [id number] 13:37:00 Test Item Value Reference Range Interpretation Comments GLUBED (test code = GLUBED) 96 MG/DL 70-[address] Chest W Contrast Abdomen W Contrast Pelvis W [id number] 15:08:15 Interface, Radiology Results 06/06/2019 3:11 PM CDTEXAMINATION: CT CHEST W CONTRAST ABDOMEN W CONTRAST PELVIS W CONTRASTCLINICAL HISTORY: C20 Malignant neoplasm of rectum, RECTAL CACOMPARISON: None.TECHNIQUE: CT of the chest, abdomen and pelvis with intravenous contrast. CT imaging was performed with iterative reconstruction techniques and/or automated exposure control to reduce radiation dose. FINDINGS:CHEST:LUNGS and PLEURA: Lungs and airways are normal without focal abnormality. Pleural spaces are clear.HEART and MEDIASTINUM: The ascending thoracic aorta measures 4.7 cm the level of the main pulmonary artery. No mediastinal or hilar adenopathy. Heart and pericardium within normal limits.ABDOMEN AND PELVIS:HEPATOBILIARY: No focal hepatic lesions. No biliary ductal dilation. Prior cholecystectomy.SPLEEN: No splenomegaly. A few calcified granulomas are noted.PANCREAS: No focal masses or ductal dilation.ADRENALS: No adrenal nodules.KIDNEYS: No hydronephrosis, stones or solid masses.GI TRACT: The appendix is unremarkable. There is mild wall thickening of the collapsed rectum.PERITONEUM/RETROPERITONEUM: No free air or fluid. No lymphadenopathy.VASCULATURE: Abdominal aorta is nonaneurysmal. There is mild calcific atherosclerosis of the aorta and major branch vessels.PEL BASSEM ORGANS/BLADDER: Unremarkable.BONES AND SOFT TISSUES: Vertebral body hemangiomas are noted at T7 T9 and L1. Left unilateral gynecomastia is incidentally noted.IMPRESSION:1.No evidence of distant or hetal metastatic disease.2.Mild ectasia of the ascending thoracic aorta as detailed above.[facility]-[id number] and approved by resident manager/fellow: Virgil Gonzalez M.D.I, Fan Simmons MD, personally reviewed the images and resident's/fellow's findings and agree with the final report.Casey Rowland POC [id number] 12:30:32 Test Item Value Reference Range Interpretation Comments POC creatinine (test 1.0 mg/dl 0.7-1.2 Operato r Name: Pille code = 65433-0) Rachid e ID: [id number] Peña MethodistEstimated [id number] 12:30:32 Test Item Value Reference Range Interpretation Comments Estimated GFR (test 83 mL/min/1.73 m2 [facility] Units code = 42119-9) Interpretati onG1 >=90 Normal or highG2 60-89 Mildly myvunffswC8i 45-59 Mildly to mode rately nepaxspbpQ5i 30-44 Moderately to severely decreasedG4 15-29 Severely decre asedG5 <15 Kidn ey failureThe eGFR was calculated lizzette hamilton the Chronic Kidney Disease Epidemiology Co llaboration (CKD-EPI) equat ion. Interpretation is based on recommendations of the National Kidney Foundation-Kidn ey Disease Outcomes Qualit y Initiative (NKF-KDOQI) pub lished in 2014. Peña MethodistCOMPREHENSIVE METABOLIC [id number] 14:24:00 Test Item Value Reference Range Interpretation Comments SODIUM (test code = 137 MMOL/L 136-143 N NA) POTASSIUM (test 4.6 MMOL/L 3.5-5.1 N code = K) CHLORIDE (test code 99 MMOL/L 98-107 N = CL) CARBON DIOXIDE 28 mmol/L 24-31 N (test code = CO2) GLUCOSE (test code 91 mg/dL 70-104 N = GLU) BLOOD UREA NITROGEN 11.7 MG/DL 7.0-21.0 N (test code = BUN) GLOMERULAR >=60 max >60 The estimated FILTRATION RATE estimate glomerular (test code = GFR) filtration rate is computed usingpatient ra ce, age (>18), sex, and serum creatinin e. If anyof the ne eded data elements a re missing the Laboratory daphne ot compute an estimation of t he glomerular filtration rate . CREATININE (test 0.9 mg/dL 0.8-1.5 N code = CREAT) TOTAL PROTEIN (test 7.1 g/dL 6.3-8.3 N code = PROT) ALBUMIN (test code 4.3 G/DL 3.5-5.0 N = ALB) CALCIUM (test code 9.9 mg/dL 8.8-10.2 N = CA) BILIRUBIN TOTAL 0.3 mg/dL 0.2-1.0 N (test code = BILT) SGOT/AST (test code 14 IU/L 10-34 N = AST) SGPT/ALT (test code 22 U/L 10-44 N = ALT) ALKALINE 94 U/L 45-120 N PHOSPHATASE (test code = ALKP) CBC W/AUTO [id number] 13:38:00 Test Item Value Reference Range Interpretation Comments WHITE BLOOD CELL (test code = 9.3 x10 3/uL 4.8-10.8 N WBC) RED BLOOD CELL (test code = 4.97 x10 6/uL 4.70-6.10 N RBC) HEMOGLOBIN (test code = HGB) 13.7 g/dL 14.5-20 L HEMATOCRIT (test code = HCT) 43.0 % 42.0-52.0 N MEAN CELL VOLUME (test code = 86.5 fL 80.0-94.0 N MCV) MEAN CELL HGB (test code = MCH) 27.6 pg 27-31 N MEAN CELL HGB CONCENTRATION 31.9 G/DL 33-36.5 L (test code = MCHC) RED CELL DISTRIBUTION WIDTH 13.5 % 12.9-16.9 N (test code = RDW) PLATELET COUNT (test code = 268 150-440 N PLT) MEAN PLATELET VOLUME (test code 10.4 fL 8.9-12.4 N = MPV) NEUTROPHIL % (test code = NT%) 71.7 % 42.2-75.2 N LYMPHOCYTE % (test code = LY%) 19.0 % 20.5-51.1 L MONOCYTE % (test code = MO%) 7.6 % 1.7-9.3 N EOSINOPHIL % (test code = EO%) 1.1 % 0.0-7.0 N BASOPHIL % (test code = BA%) 0.3 % 0-2.5 N NEUTROPHIL # (test code = NT#) 6.64 x10 3/uL 1.80-7.70 N LYMPHOCYTE # (test code = LY#) 1.76 x10 3/uL 1.00-4.80 N MONOCYTE # (test code = MO#) 0.70 x10 3/uL 0.00-0.80 N EOSINOPHIL # (test code = EO#) 0.10 x10 3/uL 0.00-0.45 N BASOPHIL # (test code = BA#) 0.03 x10 3/uL 0.0-0.20 N
--- OUTSIDE RECORDS SUMMARY | 2019-09-06 06:30 | XMS REPORT ---
:1960 Author Organization eClinicalWorks Care Team Providers Name Role Phone Jann [facility] Provider Role Unavailable Allergies, Adverse Reactions, Alerts Substance Reaction Event Type Latex Gloves Info Not Available Drug Allergy Morphine Sulfate Info Not Available Drug Allergy Problems Problem Type Condition Code Onset Dates Condition Statu s Assessment Benign essential HTN I10 Active Assessment Hypothyroidism E03.9 Active Assessment Nocturnal enuresis N39.44 Active Assessment New onset seizure R56.9 Active Assessment Lumbar back pain with radiculopathy M54.16 Active affecting lower extremity Assessment Low testosterone in male R79.89 Act melisa Assessment VANNESA (obstructive sleep apnea) G47.33 Active Assessment Morbid (severe) obesity due to E66.01 Active excess calories Assessment Chronic diastolic congestive heart I50.32 Active failure Assessment 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 Assessment Adenocarcinoma, colon C18.9 Active Problem 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 Problem H/O prostatectomy Z90.79 Active Problem Benign essential HTN I10 Active Problem 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 Problem History of prostate cancer Z85.46 A ctive Problem Adult BMI 50.0-59.9 kg/sq m Z68.43 Active Problem Low testosterone in male R79.89 Act melisa Problem Lumbar back pain with radiculopathy M54.16 Active affecting lower extremity Problem Borderline diabetes R73.09 Active Problem Allergic rhinitis J30.9 Active Assessment Chronic back pain M54.9 Active Problem Adenocarcinoma, colon C18.9 Active Problem Hypothyroidism E03.9 Active Assessment Allergic rhinitis J30.9 Active Problem Nocturnal enuresis N39.44 Active Assessment History of prostate cancer Z85.46 A ctive Problem Generalized anxiety disorder F41.1 Active Assessment H/O prostatectomy Z90.79 Active Problem New onset seizure R56.9 Active Assessment Adult BMI 50.0-59.9 kg/sq m Z68.43 Active Problem Morbid (severe) obesity due to E66.01 Active excess calories Assessment Hyperlipidemia, mixed E78.2 Active Problem Chronic back pain M54.9 Active Assessment Generalized anxiety disorder F41.1 Active Problem Bladder incontinence R32 Active Assessment Borderline diabetes R73.09 Active Problem Hyperlipidemia, mixed E78.2 Active Assessment Bladder incontinence R32 Active Problem Erectile dysfunction N52.9 Active Assessment HSV-1 (herpes simplex virus 1) B00.9 Active infection Problem Chronic diastolic congestive heart I50.32 Active failure Assessment Erectile dysfunction N52.9 Active Problem VANNESA (obstructive sleep apnea) G47.33 Active Problem Stress incontinence of urine N39.3 Active Problem HSV-1 (herpes simplex virus 1) B00.9 Active infection Medications Medication Code Code Instructions Start End Status Dosage System Date Date Lipitor [facility] 81017249387 20 MG Orally Active 1 table t Once a day Lasix [facility] 28869104412 20 MG Orally Active 1 table t Once a day Oxybutynin [facility] 95749120009 5 MG Orally Active 1 tab let Chloride Twice a day Fluoxetine HCl [facility] 82928892706 20 MG Orally Active 1 capsule TID ProAir HFA [facility] 46074978859 108 (90 Base) Active 2 p uffs MCG/ACT as needed Inhalation every 6 hrs Glucophage [facility] 92984562190 500 MG Orally Active 1 t ablet Twice a day with meals Losartan [facility] 81534414183 50 MG Active TAKE ONE Potassium TABLET BY MOUTH DAILY Metformin HCl [facility] 91181865397 500 MG Orally Active 1 tablet BID with a meal Levothyroxine [facility] 33732873507 50 MCG Orally Active 1 tablet Sodium Once a day on an empty stomach in the morning Levetiracetam [facility] 90054144925 500 MG Active TAKE O NE TABLET BY MOUTH TWICE A DAY Trazodone HCl [facility] 12224731703 100 MG Orally Active 1 tablet Once a day at bedtime as needed Levothyroxine [facility] 46189414727 50 MCG Active TAKE O NE Sodium TABLET BY MOUTH EVERY MORNING ON AN EMPTY STOMACH Fluoxetine HCl [facility] 34756654834 20 MG Active TAKE ONE CAPSULE BY MOUTH THREE TIMES A DAY Lasix [facility] [address]-61 20 MG Active TAKE ONE TABLET BY MOUTH DAILY Losartan [facility] [address]-23 50 MG Active TAKE ONE Potassium TABLET BY MOUTH DAILY Losartan [facility] 37540621575 50 MG Orally Active 1 tabl et Potassium Once a day Keppra [facility] 76952948409 500 MG Orally Active 1 tabl et Twice a day Lipitor [facility] 89042822553 20 MG Active TAKE ONE TABLET BY MOUTH DAILY Protonix [facility] 07741621611 40 MG Active TAKE ONE TABLET BY MOUTH DAILY Hydrocodone-Acet [facility] 29119673563 5-325 MG Orally Act melisa 1 tablet aminophen BID PRN as needed Cialis [facility] 61947915008 5 MG Orally Jan 10August 07, Active 1 tablet Once a day 2018 2019 as needed Tramadol HCl [facility] 63137594351 50 MG Orally Active 1 tablet every 6 hrs as needed Results No Known Results Summary Purpose eClinicalWorks Submission
--- OUTSIDE RECORDS SUMMARY | 2019-09-06 06:30 | XMS REPORT ---
:1960 Author Organization eClinicalWorks Care Team Providers Name Role Phone Asmita Briseno Provider Role Unavailable Allergies No Known Allergies Problems Problem Type Condition Code Onset Dates Condition Statu s Assessment History of kidney stones Z87.442 Act melisa Assessment Stress incontinence of urine N39.3 Active Assessment Prostate cancer C61 Active Assessment Bladder incontinence R32 Active Assessment Erectile dysfunction N52.9 Active Problem Current severe episode of major [...] R73.09 Active Problem Allergic rhinitis J30.9 Active Problem Adenocarcinoma, colon C18.9 Active Problem Hypothyroidism E03.9 Active Problem Nocturnal enuresis N39.44 Active Problem Generalized anxiety disorder F41.1 Active Problem New onset seizure R56.9 Active Problem Morbid (severe) obesity due to E66.01 Active excess calories Problem Chronic back pain M54.9 Active Problem Bladder incontinence R32 Active Problem Hyperlipidemia, mixed E78.2 Active Problem Erectile dysfunction N52.9 Active Problem Chronic diastolic congestive heart I50.32 Active failure Problem VANNESA (obstructive sleep apnea) G47.33 Active Problem Stress incontinence of urine N39.3 Active Problem HSV-1 (herpes simplex virus 1) B00.9 Active infection Medications Medication Code Code Instructions Start End Status Dosage System Date Date Hydrocodone-Acet NDC 15119367877 5-325 MG Orally Act melisa 1 tablet aminophen BID PRN as needed Tramadol HCl NDC 84858934432 50 MG Orally Active 1 tablet every 6 hrs as needed Lasix [facility] [address]-93 20 MG Active TAKE ONE TABLET BY MOUTH DAILY Cialis ND 12179285107 5 MG Orally Active 1 tablet Once a day as needed Protonix [facility] 42404175832 40 MG Active TAKE ONE TABLET BY MOUTH DAILY Trazodone HCl ND 19500345461 100 MG Orally Active 1 tablet Once a day at bedtime as needed Keppra [facility] 74398862719 500 MG Orally Active 1 tabl et Twice a day ProAir HFA [facility] 37401269926 108 (90 Base) Active 2 p uffs MCG/ACT as needed Inhalation every 6 hrs Losartan [facility] [address]-38 50 MG Active TAKE ONE Potassium TABLET BY MOUTH DAILY Levothyroxine ND 46652011079 50 MCG Orally Active 1 tablet Sodium Once a day on an empty stomach in the morning Levothyroxine [facility] 47374106993 50 MCG Active TAKE O NE Sodium TABLET BY MOUTH EVERY MORNING ON AN EMPTY STOMACH Oxybutynin [facility] 87536225860 5 MG Orally Active 1 tab let Chloride Twice a day Fluoxetine HCl [facility] 69974805824 20 MG Orally Active 1 capsule TID Metformin HCl [facility] 32666958868 500 MG Orally Active 1 tablet BID with a meal Losartan [facility] 94599625735 50 MG Orally Active 1 tabl et Potassium Once a day Lipitor [facility] 87979847322 20 MG Active TAKE ONE TABLET BY MOUTH DAILY Losartan ND 66436980727 50 MG Active TAKE ONE Potassium TABLET BY MOUTH DAILY Lipitor ND 80532386073 20 MG Orally Active 1 table t Once a day Lasix [facility] 45485273038 20 MG Orally Active 1 table t Once a day Fluoxetine HCl [facility] 26785246429 20 MG Active TAKE ONE CAPSULE BY MOUTH THREE TIMES A DAY Glucophage ND 66130591945 500 MG Orally Active 1 t ablet Twice a day with meals Levetiracetam [facility] 38216846383 500 MG Active TAKE O NE TABLET BY MOUTH TWICE A DAY Results No Known Results Summary Purpose eClinicalWorks Submission
--- OUTSIDE RECORDS SUMMARY | 2019-09-06 06:30 | XMS REPORT ---
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 Problem History of prostate cancer Z85.46 A ctive Problem Adult BMI 50.0-59.9 kg/sq m Z68.43 Active Problem Low testosterone in male R79.89 Act melisa Problem Borderline diabetes R73.09 Active Problem Lumbar back pain with radiculopathy M54.16 Active affecting lower extremity Problem Allergic rhinitis J30.9 Active Problem Hypothyroidism E03.9 Active Problem Adenocarcinoma, colon C18.9 Active Problem Nocturnal enuresis N39.44 Active Problem [...] without psychotic features without prior episode Problem Benign essential HTN I10 Active Problem HSV-1 (herpes simplex virus 1) B00.9 Active infection Problem H/O prostatectomy Z90.79 Active Medications No Known Medications Results No Known Results Summary Purpose eClinicalWorks Submission
--- OUTSIDE RECORDS SUMMARY | 2019-09-06 06:31 | XMS REPORT ---
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 Problem Adult BMI 50.0-59.9 kg/sq m Z68.43 Active Problem Erectile dysfunction N52.9 Active Problem Morbid (severe) obesity due to E66.01 Active excess calories Problem History of prostate cancer Z85.46 A ctive Problem Nocturnal enuresis N39.44 Active Problem Acute stress reaction F43.0 Active Problem Adenocarcinoma, colon C18.9 Active Problem Benign essential HTN I10 Active Problem Bladder incontinence R32 Active Problem Panic disorder [episodic paroxysmal F41.0 Active anxiety] Problem Chronic back pain M54.9 Active Problem New onset seizure R56.9 Active Problem Generalized anxiety disorder F41.1 Active Problem Low testosterone in male R79.89 Act melisa Problem Lumbar back pain with radiculopathy M54.16 Active affecting lower extremity Problem Stress incontinence of urine N39.3 Active [...] Medications Results No Known Results Summary Purpose [employer] Submission
--- OUTSIDE RECORDS SUMMARY | 2019-09-06 06:43 | XMS REPORT | Clinical Summary ---
:1960 Author Organization [facility] Address [address] [place] [address] Care Team Providers Name Role Phone Asked, [...] of Sofiya Pemberton, rectum (HC C) (Primary REGIONAL EXTENSION SERVICE SPECIALIST-C Dx) 06/06/2019 Hospital Encounter Radiology José Miguel [...] the ascending thoracic aorta as detailed above. [facility]-[id number] Dictated and approved by radiology resid ent/fellow: [...] the ascending thoracic aorta as detailed above. [facility]-[id number] Dictated and approved by radiology resid ent/fellow: Virgil Gonzalez M.D. I, Fan Simmons MD, personally reviewed t he images and resident's/fellow's findings and agree with the final report. Performing Organization Address City/[facility] Phone Number [facility] [address] [place] [address] Estimated GFR (06/06/2019 12:28 PM CDT) Estimated GFR 83 mL/min/1.73 [facility] Comment: m2 HOSPITAL Catergory Units Interpretation G1 [...] Blood Performing Organization Address City/State/Zipcode Phone Number [facility] DEPARTMENT OF PATHOLOGY AND [address], [place] [address] [facility] [address] [place] [address] POC creatinine (06/06/2019 12:28 PM CDT) POC creatinine 1.0 0.7 - 1.2 [facility] Comment: mg/dl HOSPITAL Lease Administration Supervisor Name: Suri Vang Device ID: [id number] Specimen Blood Performing Organization Address City/State/Zipcode Phone Number [facility] DEPARTMENT OF PATHOLOGY AND [address], [place] [address] 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
--- OUTSIDE RECORDS SUMMARY | 2019-09-06 06:44 | XMS REPORT | Continuity of Care Document ---
:1960 Author Organization [facility] t Address [address] [place] [address] Care Team Providers Name Role Phone Asked, Pcp Primary Care Physician Unavailable Nilay Linn Attending Clinician [phone] Raymundo Rose MD Attending Clinician Payers Payer Name Policy Policy Number Effective Expiration Source Type Date Date MEDICAREMEDICARE PART xxxxxxxxxxx 2018 [place] 00:00:00 [employer] [id number][place] [place] Problems Condition Condition Condition Status Onset Resolution [...] s - disorder disorder Memori a l [facility] Clinics Nocturnal Nocturnal Problem Active [facility] enures[facility]uresis [facility] Clinics Current Current Problem Active [...] [facility] prostatect prostatect Michelle kes - sam sam [facility] Clin[facility] History of History of Problem Active [facility] prostate [facility] Morbid Morbid Problem [...] Lance kristin paroxysmal paroxysmal l anxiety] anxiety] [facility] Clinics Acute Acute Problem Active [facility] stress stress [facility] - reaction reaction Memori a [facility] Allergies, Adverse Reactions, Alerts Allergy Allergy Status [...] morphine DA Active U 2020-0 [facility]- [place] 00:[facility]: Health 00 are [facility] st latex DA Active U 2020-0 [facility] 3 [place] 00:00: Health 00 are [facility] TOPICAL DA Active U 2020-0 [facility] STEROIDS 06-04 [place] 00:00: Health 00 are [facility] Latex Adverse Active Info Not [facility] Gloves Reaction Available [facility] Morphine Adverse Active Info Not [facility] Sulfate Reaction Available [facility] Social History Social Habit Start Date Stop Date Quantity Comments Source Sex Assigned At Jade ston [employer] Medications Ordered Filled Start Stop Current Ordering Indication Dosage Frequency Signature Comments Components Source Medication Medication Date Date Medication? Clinician (SIG) Name Name Diazepam Diazepam 2020-0 Yes Mango 0.[address] 6-02 [place] as needed [facility] - 00:00: Memoria 00 [facility] metFORMIN 2020-0 Yes 500mg Q.5D Take 500 [...] Forte [facility] - 00:00: Memoria 00 l [facility] ent Clinics Keppra Keppra Yes Mango 1 tablet [facility] [facility] Lipitor Lipitor Yes Mango TAKE ONE [facility] [place] TABLET BY [facility] - MOUTH Memoria DAILY l [facility] Tramadol Tramadol Yes Mango [address] HCl HCl [place] as needed [facility] - [facility] ProAir HFA ProAir HFA Yes Mango [address] [place] needed [facility] - Memoria l [facility] Protonix Protonix Yes Mango TAKE ONE [facility] [place] TABLET BY [facility] - MOUTH Memoria DAILY l [facility] Metformin Metformin Yes Mango [address] [address] HCl HCl [place] with a [facility] - meal Memoria l [facility] Trazodone Trazodone Yes Mango [address] HCl HCl [place] at bedtime [facility] - as needed Memoria l [facility] ent Clinics Levothyroxi Levothyroxi Yes Mango [address] [facility] ne Sodium ne Sodium [place] on an Paulino es - empty Memoria stomach in l the [facility] morning ent Clinics Fluoxetine Fluoxetine Yes Mango [address] [address] HCl HCl [place] [facility] - Memoria l [facility]ics Lasix Lasix Yes Mango [address] [place] [facility] - [facility] Losartan Losartan Yes Mango [address] Potassium Potassium Fort[place] Luke s - Memoria l [facility] Losartan Losartan Yes Mango TAKE ONE [facility] Potassium Potassium [place] TABLET BY [facility] - MOUTH Memoria DAILY l [facility] ent Clinics Hydrocodone Hydrocodone Yes Mango [address] -Acetaminop -Acetaminop [place] as needed [facility] - hen hen Memoria l [facility] ent Clinics Glucophage Glucophage Yes Mango [address] [facility] [place] with meals [facility] - [facility] Clinics Levothyroxi Levothyroxi Yes Mango TAKE ONE [facility] ne Sodium ne Sodium [place] TABLET BY [facility] - MOUTH Memoria EVERY l MORNING ON Outpati AN EMPTY ent STOMACH Clinics Lasix Lasix Yes Mango TAKE ONE [facility] [place] TABLET BY [facility] - MOUTH Memoria DAILY l [facility] ent Clinics Fluoxetine Fluoxetine Yes Mango TAKE ONE [facility] HCl HCl [place] CAPSULE BY [facility] - MOUTH Memoria THREE l TIMES A Outpati DAY ent Clinics Oxybutynin Oxybutynin Yes Mango [address] Chloride Chloride [place] [facility] l Outpati ent Clinics Cialis Cialis Yes Mango 1 tablet [facility] [place] as needed [facility] Levetiracet Levetiracet Yes Mango TAKE ONE [facility] am am [place] TABLET BY [facility] - MOUTH Memoria TWICE A l DAY [facility] Clinics Immunizations Ordered Filled Immunization Date Status Comments Sour e Immunization Name Name Mily Afluria 2018-11-[address] [facility] Vital Signs Vital Name Observation Time [...] Future Scheduled 2019-10-28 INFLUENZA VACCINE [place] [employer] Test 00:00:00 [code = INFLUENZA VACCINE] Future Scheduled 2011 COLONOSCOPY SCREENING [facility] Scient[employer] Test 00:00:00 [code = COLONOSCOPY SCREENING] Future Scheduled 2011 SHINGLES VACCINES [place] [employer] Test 00:00:00 (#1) [code = SHINGLES VACCINES (#1)] Encounters Start End Encounter Admission Attending Care Care Encounter Source Date/Time Date/Time Type Type Clinicians Facility Department ID 2019-08-31 2019-08-31 Outpatient Kirby Bell [id number] [facility] [address] 11:59:00 11:59:[address] [facility] [address] [facility] Family Medicine Medicine [facility] Clinics 2019-08-29 2019-08-29 Outpatient Kirby Bell [id number] 09:15:00 09:15:00 t Facile System s - Drive [facility] Medicine Medicine Outpati ent Clinics 2019-08-24 2019-08-24 [facility] [id number] 10:36:00 10:36:00 [facility] Medicine Outpati ent Clinics 2019-07-12 2019-07-12 [facility] [id number] 10:30:00 10:30:00 t Specialty/U Michelle kes - Specialty rology Memori a /Urology Clinic l Clinic Outpati ent Clinics 2019-07-05 2019-07-05 [facility] [id number] 14:15:00 14:15:00 t Facile System s - MRO [facility] Medicine Outpati ent Clinics 2019-06-06 2019-06-06 Outpatient FLAQUITO ROSE [facility] [id number] [place] 00:00:00 00:00:[address] 2019-04-05 2019-04-05 [facility] [id number] 14[facility]01:00 14:01:00 t Facile System s - MRO [facility] Medicine Outpati ent Clinics 2019-04-05 2019-04-05 [facility] [id number] 10:00:00 10:00:00 t Facile System s - Drive [facility] Medicine Outpati ent Clinics 2019-03-01 2019-03-01 [facility] [id number] 09:15:00 09:15:00 t Facile System s - Drive [facility] l Medicine Outpati ent Clinics 2019-01-24 2019-01-24 [facility] [id number] 10:34:00 10:34:00 t Specialty/U Michelle kes - Specialty rology Memori a /Urology Clinic l Clinic Outpati ent Clinics 2019-01-10 2019-01-10 [facility] [id number] [address] 10:00:00 10:00:00 t Specialty/U Michelle kes - Specialty rology Memori a /Urology Clinic l Clinic Outpati ent Clinics 2018-12-16 2018-12-16 [facility] [id number] 14:39:00 14:39:00 t Specialty/U Michelle kes - Specialty rology Memori a /Urology Clinic l Clinic Outpati ent Clinics 2018-11-29 2018-11-29 [facility] [id number] 08:45:00 08:45:00 t [facility]clog s - Drive [facility] Family Medicine l Medicine Outpati ent Clinics 2018-06-14 2018-06-14 [facility] [id number] 10:16:00 10:16:00 t Specialty/U Michelle kes - Specialty rology Memori a /Urology Clinic l Clinic Outpati ent Clinics 2018-06-08 2018-06-08 [facility] [id number] 11:13:00 11:13:00 t Facile System s - Drive [facility] Medicine Outpati ent Clinics 2018-05-25 2018-05-25 [facility] [id number] 15:26:00 15:26:00 t Wallace Reclog s - MRO [facility] Medicine l Medicine Outpati ent Clinics 2018-05-16 2018-05-16 [facility] [id number] [facility] 15:45:00 15:45:00 t [facility]clog s - Drive [facility] Medicine Outpati ent Clinics 2018-05-03 2018-05-03 [facility] [id number] 14:30:00 14:30:00 t Wallace Reclog s - Drive [facility] Medicine l Medicine Outpati ent Clinics 2018-04-04 2018-04-04 [facility] [id number] 08:15:00 08:15:00 t Wallace Reclog s - Drive [facility] Medicine l Medicine Outpati ent Clinics 2017-11-24 2017-11-24 [facility] [id number] 09:00:00 09:00:00 t Specialty/U Michelle kes - Specialty rology Memori a /Urology Clinic l Clinic Outpati ent Clinics 2017-11-17 2017-11-17 [facility] [id number] 15:11:00 15:11:[address] [facility] 2017-11-15 2017-11-15 Outpatient Vonnierose marie Orrjoseph 15 [id number] [facility] 10:30:00 10:30:00 365looks ([email or web address]) [facility] ent [facility] Results Test Description Test Time Test Comments Results Result Sour e Comments SURGICAL 2019-06-26 SPECIMENS 18:14:00 RUN DATE: 06/26/19 [facility] - LAB PAGE 1 RUN TIME: 1814 Specimen Inquiry RUN USER: INTERFACE PATIENT: RA MAST LOC: P.5N POD B U #: [id number] AGE/SX: 59/M ROOM: [facility] RE06/20/19YANEHT DR: Flaquito Rose MD : 62 BED: 1 DIS: 06/21/19 STATUS: DIS IN TLOC: SPEC #: [id number] RECD: 06/20/19 STATUS: LINDA ROBIN #: [id number] PALOMA: 06/20/[address]: Flaquito Rose MD [...] the smaller piece, in a single cassette. 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 Signed SIGNATURE ON FILE Paulina Shrestha 06/26/19 1814 END OF REPORT SURGICAL 2019-06-26 SPECIMENS 18:14:00 RUN DATE: 07/03/19 [facility] - LAB PAGE 1 RUN TIME: 1407 Specimen Inquiry RUN USER: INTERFACE PATIENT: RA MAST LOC: PJonny5N POD B U #: [id number] AGE/SX: 59/M ROOM: [facility] RE06/20/19REG DR: Flaquito Rose MD : 62 BED: 1 DIS: 06/21/19 STATUS: DIS IN TLOC: SPEC #: [id number] RECD: 06/20/19 STATUS: LINDA SHARDA #: [id number] PALOMA: 06/20/19-12[address] [facility] [address]: Flaquito Rose MD ENTERED: 06/20/19 SP TYPE: SURG OTHR DR: ORDERED: PATHGM4, PATH SPEC, H E STAIN HISTOLOGY: TISSUE ID BLK PCS RAYMOND LEV / PROCEDURE DISPOSITION ____ ___ ___ ___ ___ RECTAL BX A 1 1 TISSUES: A. RECTAL BX - Rectal Cancer ADDENDUM FINDINGS Addendum #1 Entered: 07/03/19-9443 The purpose of this addendum is to report results of mismatch repair protein expression by immunohistochemistry. For complete results please see corresponding Integrated Oncology Report ([id number]). DIAGNOSIS: MLH1 - expressed MSH2 - expressed [...] CONTINUED ON NEXT PAGE RUN DATE: 07/03/19 [facility] - LAB PAGE 2 RUN TIME: 1407 Specimen Inquiry RUN USER: INTERFACE SPEC #: [id number] PATIENT: PRORA GUTIERREZ #[id number] (Continued) COMMENT (Continued) pathologists in intradepartmental consultation, [...] code = GLUBED) 94 MG/DL 70-105 N [id number] 08:13:00 Test Item Value Reference Range Interpretation Comments GLUBED (test code = GLUBED) 114 MG/DL 70-105 H BASIC METABOLIC [id number] 05:14:00 Test Item Value Reference Range Interpretation [...] mg/dL 8.8-10.2 N = CA) CBC W/AUTO [id number] 05:07:00 Test Item Value Reference Range Interpretation [...] BA#) 0.02 x10 3/uL 0.0-0.20 N AG [id number] 04:07:00 Test Item Value Reference Interpretation Comments Range AG CARCINOEMBRYONIC 1.1 ng/mL 0.0-4.7 (test code = CEA) Nonsmokers <3.9 Smokers <5.6Roche [employer] ostics Electrochemilum inescence Immunoassay(ECL IA)Values obtained with d ifferent assay methods o r kitscannot be used interch angeably. Results cannot beinterpreted as absolute peterson dence of the presence orabse nce of malignant disea se.Performed At: [facility] [address] [id number] Esteban Sahni MD Ph:[phone] [id number] 22:39:00 Test Item Value Reference Range Interpretation Comments GLUBED (test code = GLUBED) 101 MG/DL 70-105 N [id number] 17:26:00 Test Item Value Reference Range Interpretation Comments GLUBED (test code = GLUBED) 144 MG/DL 70-105 H [id number] 13:37:00 Test Item Value Reference Range Interpretation Comments GLUBED (test code = GLUBED) 96 MG/DL 70-[address] Chest W Contrast Abdomen W Contrast Pelvis W [id number] 15:08:15 Interface, Radiology Results 06/06/2019 3:11 PM [...] of the ascending thoracic aorta as detailed above.[facility]-[id number] and approved by radiology administrator/fellow: Virgil Gonzalez M.D.I, Fan Simmons MD, personally reviewed the images and resident's/fellow's findings and agree with the final report.Casey Rowland POC [id number] 12:30:32 Test Item Value Reference Range Interpretation Comments POC creatinine (test 1.0 mg/dl 0.7-1.2 Operato r Name: Pille code = 04880-8) Rachid e ID: [id number] Peña MethodistEstimated [id number] 12:30:32 Test Item Value Reference Range Interpretation Comments Estimated GFR (test 83 mL/min/1.73 m2 [facility] Units code = 95683-4) Interpretati onG1 >=90 Normal or highG2 60-89 Mildly avkewqwwjA0r 45-59 Mildly to mode rately boypvtsogU3o 30-44 Moderately to severely decreasedG4 15-29 Severely decre asedG5 <15 Kidn ey failureThe eGFR was calculated lizzette hamilton the Chronic Kidney Disease Epidemiology Co llaboration (CKD-EPI) equat ion. Interpretation is based on recommendations of the National Kidney Foundation-Kidn ey Disease Outcomes Qualit y Initiative (NKF-KDOQI) pub lished in 2014. Peña MethodistCOMPREHENSIVE METABOLIC [id number] 14:24:00 Test Item Value Reference Range Interpretation [...] PHOSPHATASE (test code = ALKP) CBC W/AUTO [id number] 13:38:00 Test Item Value Reference Range Interpretation [...]
--- OUTSIDE RECORDS SUMMARY | 2019-09-06 06:45 | XMS REPORT ---
:1960 Author Organization eClinicalWorks Care Team Providers Name Role Phone Jann [facility] Provider Role Unavailable Allergies, Adverse Reactions, [...] End Status Dosage System Date Date Lipitor [facility] 63626946026 20 MG Orally Active 1 table t Once a day Lasix [facility] 73360449786 20 MG Orally Active 1 table t Once a day Oxybutynin [facility] 96949998843 5 MG Orally Active 1 tab let Chloride Twice a day Fluoxetine HCl [facility] 86523484639 20 MG Orally Active 1 capsule TID ProAir HFA [facility] 58987028350 108 (90 Base) Active 2 p uffs MCG/ACT as needed Inhalation every 6 hrs Glucophage [facility] 66714196787 500 MG Orally Active 1 t ablet Twice a day with meals Losartan [facility] 56855203865 50 MG Active TAKE ONE Potassium TABLET BY MOUTH DAILY Metformin HCl [facility] 76703482909 500 MG Orally Active 1 tablet BID with a meal Levothyroxine [facility] 21860695107 50 MCG Orally Active 1 tablet Sodium Once a day on an empty stomach in the morning Levetiracetam [facility] 36150122472 500 MG Active TAKE O NE TABLET BY MOUTH TWICE A DAY Trazodone HCl [facility] 31111816128 100 MG Orally Active 1 tablet Once a day at bedtime as needed Levothyroxine [facility] 31104654472 50 MCG Active TAKE O NE Sodium TABLET BY MOUTH EVERY MORNING ON AN EMPTY STOMACH Fluoxetine HCl [facility] 86140166043 20 MG Active TAKE ONE CAPSULE BY MOUTH THREE TIMES A DAY Lasix [facility] [address]-04 20 MG Active TAKE ONE TABLET BY MOUTH DAILY Losartan [facility] [address]-67 50 MG Active TAKE ONE Potassium TABLET BY MOUTH DAILY Losartan [facility] 82807550278 50 MG Orally Active 1 tabl et Potassium Once a day Keppra [facility] 98850247754 500 MG Orally Active 1 tabl et Twice a day Lipitor [facility] 68720409153 20 MG Active TAKE ONE TABLET BY MOUTH DAILY Protonix [facility] 83821616659 40 MG Active TAKE ONE TABLET BY MOUTH DAILY Hydrocodone-Acet [facility] 97801091130 5-325 MG Orally Act melisa 1 tablet aminophen BID PRN as needed Cialis [facility] 40589062551 5 MG Orally Jan 10August 07, Active 1 tablet Once a day 2018 2019 as needed Tramadol HCl [facility] 59794003150 50 MG Orally Active 1 tablet every 6 hrs as needed Results No Known Results Summary Purpose eClinicalWorks Submission
--- OUTSIDE RECORDS SUMMARY | 2019-09-06 06:45 | XMS REPORT ---
[...] Status Dosage System Date Date Hydrocodone-Acet NDC 45750491642 5-325 MG Orally Act melisa 1 tablet aminophen BID PRN as needed Tramadol HCl NDC 57131196905 50 MG Orally Active 1 tablet every 6 hrs as needed Lasix [facility] [address]-77 20 MG Active TAKE ONE TABLET BY MOUTH DAILY Cialis ND 72438622774 5 MG Orally Active 1 tablet Once a day as needed Protonix [facility] 58720215590 40 MG Active TAKE ONE TABLET BY MOUTH DAILY Trazodone HCl ND 02651913073 100 MG Orally Active 1 tablet Once a day at bedtime as needed Keppra [facility] 00658617760 500 MG Orally Active 1 tabl et Twice a day ProAir HFA [facility] 01541923121 108 (90 Base) Active 2 p uffs MCG/ACT as needed Inhalation every 6 hrs Losartan [facility] [address]-22 50 MG Active TAKE ONE Potassium TABLET BY MOUTH DAILY Levothyroxine ND 88951760491 50 MCG Orally Active 1 tablet Sodium Once a day on an empty stomach in the morning Levothyroxine [facility] 26040593497 50 MCG Active TAKE O NE Sodium TABLET BY MOUTH EVERY MORNING ON AN EMPTY STOMACH Oxybutynin [facility] 54950098812 5 MG Orally Active 1 tab let Chloride Twice a day Fluoxetine HCl [facility] 81086195628 20 MG Orally Active 1 capsule TID Metformin HCl [facility] 99234941670 500 MG Orally Active 1 tablet BID with a meal Losartan [facility] 76022587718 50 MG Orally Active 1 tabl et Potassium Once a day Lipitor [facility] 84233045360 20 MG Active TAKE ONE TABLET BY MOUTH DAILY Losartan ND 75306206898 50 MG Active TAKE ONE Potassium TABLET BY MOUTH DAILY Lipitor ND 66934352987 20 MG Orally Active 1 table t Once a day Lasix [facility] 70316325068 20 MG Orally Active 1 table t Once a day Fluoxetine HCl [facility] 05634901356 20 MG Active TAKE ONE CAPSULE BY MOUTH THREE TIMES A DAY Glucophage ND 63442136696 500 MG Orally Active 1 t ablet Twice a day with meals Levetiracetam [facility] 49386156133 500 MG Active TAKE O NE TABLET BY MOUTH TWICE A DAY Results No Known Results Summary Purpose eClinicalWorks Submission
--- OUTSIDE RECORDS SUMMARY | 2019-09-06 06:46 | XMS REPORT ---
:1960 Author Organization eClinicalWorks Care Team Providers Name Role Phone Jann [facility] Provider Role Unavailable Allergies, Adverse Reactions, Alerts [...] Status Dosage System Date Date ProAir HFA [facility] 65595120537 108 (90 Base) Active 2 p uffs MCG/ACT as needed Inhalation every 6 hrs Hydrocodone-Acet ND 94209190069 5-325 MG Orally Act melisa 1 tablet aminophen BID PRN as needed Levothyroxine ND 75003746544 50 MCG Orally Active 1 tablet Sodium Once a day on an empty stomach in the morning Losartan [facility] 06712274396 50 MG Orally Active 1 tabl et Potassium Once a day Fluoxetine HCl [facility] 97007633658 20 MG Active TAKE ONE CAPSULE BY MOUTH THREE TIMES A DAY Losartan [facility] 27853534069 50 MG Active TAKE ONE Potassium TABLET BY MOUTH DAILY Oxybutynin ND 05611718736 5 MG Orally Active 1 tab let Chloride Twice a day Lasix [facility] 61223396025 20 MG Orally Active 1 table t Once a day Metformin HCl ND 07689225650 500 MG Orally Active 1 tablet BID with a meal Lasix [facility] [address]-27 20 MG Active TAKE ONE TABLET BY MOUTH DAILY Protonix [facility] 87059369645 40 MG Active TAKE ONE TABLET BY MOUTH DAILY Lasix [facility] 31592255686 20 MG Active TAKE ONE TABLET BY MOUTH DAILY Diazepam ND 84051386516 2 MG Orally August 28, Active 0.5 every 12 hrs 2020 tablet as PRN severe needed anxiety Cialis [facility] 88331300127 5 MG Orally Active 1 tablet Once a day as needed Trazodone HCl [facility] 41959404265 100 MG Orally Active 1 tablet Once a day at bedtime as needed Oxybutynin [facility] 46185844809 5 MG Orally Active 1 tab let Chloride Twice a day Levetiracetam [facility] 14673882202 500 MG Active TAKE O NE TABLET BY MOUTH TWICE A DAY Lipitor [facility] 09198710703 20 MG Orally Active 1 table t Once a day Keppra [facility] 15567896958 500 MG Orally Active 1 tabl et Twice a day Fluoxetine HCl [facility] 77778763678 20 MG Orally Active 1 capsule TID Tramadol HCl [facility] 74642977094 50 MG Orally Active 1 tablet every 6 hrs as needed Levothyroxine [facility] 73071526465 50 MCG Active TAKE O NE Sodium TABLET BY MOUTH EVERY MORNING ON AN EMPTY STOMACH Losartan [facility] [address]-60 50 MG Active TAKE ONE Potassium TABLET BY MOUTH DAILY Lipitor [facility] 16692417313 20 MG Active TAKE ONE TABLET BY MOUTH DAILY Glucophage [facility] 60323953630 500 MG Orally Active 1 t ablet Twice a day with meals Results No Known Results Summary Purpose eClinicalWorks Submission
--- OUTSIDE RECORDS SUMMARY | 2019-09-06 06:46 | XMS REPORT ---
[...] Medications Results No Known Results Summary Purpose [employer] Submission
[2019-09-06] MEDS ORDERED: NA CHLORIDE 0.9% 1,000 ML ONE (07:02)
[2019-09-06] MEDS ORDERED: CEFAZOLIN/SWI 1gm 1 GM/10 ML SYR ONE (07:02)
[2019-09-06] MEDS ORDERED: NS 0.9% VIAL 20 ML ONE (07:13)
[2019-09-06] MEDS ORDERED: HEPARIN 5000 UNIT/ML 1 ML VIAL ONE (07:13)
[2019-09-06] MEDS ORDERED: FENTANYL CITR 100 MCG/2 ML ONE (07:23)
[2019-09-06] MEDS ORDERED: LIDOCAINE 1% MPF 5 ML VIAL ONE (07:23)
[2019-09-06] MEDS ORDERED: propofoL 200 MG/20 ML VIAL IV ONE (07:23)
[2019-09-06] MEDS ORDERED: MIDAZOLAM HCL 2 MG/2 ML INJ ONE (07:23)
[2019-09-06] MEDS ORDERED: dexAMETHasone 10 MG/ML VIAL ONE (08:05)
[2019-09-06] MEDS ORDERED: KETOROLAC 30 MG/ML INJ ONE (08:05)
[2019-09-06] MEDS ORDERED: ONDANSETRON 4 MG/2 ML VIAL ONE (08:07)
[2019-09-06] MEDS ORDERED: EPHEDRINE SULF 50 MG/ML VIAL ONE (08:07)
[2019-09-06] MEDS ORDERED: NS 0.9% VIAL 10 ML ONE (08:07)
--- NOTE | 2019-09-06 08:38 | P.BOP ---
Preoperative diagnosis: colorectal cancer Postoperative diagnosis: same Primary procedure: 1. Placement of portacath Secondary procedure: 2. interpretation of fluoroscopy Estimated blood loss: <10cc Anesthesia: General Complications: None Drain(s): Other Implants: single lumen Transferred to: Recovery Room Condition: Good
[2019-09-06] MEDS: MEPERIDINE HCL 50 MG/ML ONE ×2 (09:09→09:14)
--- NOTE | 2019-09-06 09:10 | RAD REPORT ---
EXAM DESCRIPTION: RAD - Chest Single View - 09/06/2019 9:03 am CLINICAL HISTORY: S/P PORT A CATH PLACEMENT COMPARISON: September 04, 2019 TECHNIQUE: AP portable chest image was obtained 09/06/2019 9:03 am . FINDINGS: Left subclavian Port-A-Cath has been placed. Tip is in the proximal SVC. No pneumothorax. No new cardiopulmonary finding otherwise noted. IMPRESSION: Left subclavian Port-A-Cath placement with the tip in the proximal SVC. No pneumothorax.
[2019-09-06 09:48] VITALS: BP 113/66; TEMP 97.4; O2SAT 95
--- NOTE | 2019-09-06 10:29 | OP ---
Date of Procedure: 09/06/2019 Surgeon: Leonardo Ibarra MD Preoperative Diagnosis: Colorectal cancer. Postoperative Diagnosis: Colorectal cancer. Procedures: 1.Placement of Port-A-Cath. 2.Interpretation of fluoroscopy. Anesthesia: General plus local. Implant: Single-lumen Port-A-Cath. Indications: This is the case of a 59-year-old patient, sent to my office for Port-A-Cath placement for need of a chemotherapy. The benefits, alternatives, and risks of Port-A-Cath placement fully exp lained to the patient, which include but are not limited to infection, bleeding, damage to adjacent s tructures, anesthesia complication, pneumothorax, hemothorax, pericardiac tamponade, PE, DVT, SC, barbara n . He also understands this may not relieve the symptoms. He might need more than one surgica l intervention. He understands that if the Port-A-Cath is not in use, he should remove it immediatel y and call my office to have it removed. If he is not using the Port-A-Cath for more than a month an d his primary doctor wanted keep it for medical reasons, then he should tell medical doctor to arrang e for a monthly Port-A-Cath flush with a home health agencies. He understands those conditions and t hen he signed a consent. He also was advised on importance of losing weight. Description Of Procedure: The patient brought to the operating room, placed in supine position. Anes thesia was without complication. Chest and neck were prepped and draped in sterile fashion. A time- out was called. An 18-gauge needle was placed in the left subclavian in first attempt. A guidewire was passed through, got into the superior vena cava using fluoroscopy. After that, we made a small i ncision on the skin and all the incisions in the left upper chest and created a pocket for the Port-A -Cath. We put the introducer sheath under direct visualization of fluoroscopy through the guidewire. Guidewire was removed. The catheter was placed in, introducer sheath was peeled off and then guide wire was tunneled into the skin to meet the new incision on left upper chest, cut to proper size, and connected to the Port-A-Cath using the administrative representative's specifications. Excellent backflow and inflow . Fluoroscopy was used to guide in this process. At that moment, we sutured the Port-A-Cath to the subcutaneous tissue, and then closed the skin in a subcuticular fashion with 3-0 chromic and Steri-St rips on top. Sponge count and instrument counts were correct. Patient brought back from Trendelenbu rg to normal position. Patient was sent to Recovery in stable condition and a chest x-ray was ordere d stat. COLE/GLENNY Voice ID: [id number] Report ID: [id number]
--- NOTE | 2019-09-06 10:29 | DS ---
Diagnosis: Colorectal cancer. Procedure: Placement of Port-A-Cath under fluoroscopy. Disposition: Home. Activity: As tolerated. No heavy lifting. Followup: Follow up in my office in 1 week. Discharge Instructions: Call for appointment at [phone]. The patient will be discharged after the chest x-ray is reviewed. Medication: Include Ultracet q.4 hours p.r.n. pain. COLE/GLENNY Voice ID: [id number] Report ID: [id number]
--- NOTE | 2019-09-06 14:57 | RAD REPORT ---
EXAM DESCRIPTION: RAD - Fluoroscopy <1 Hour - 09/06/2019 8:31 am FINDINGS: There were 5 portable C-arm views submitted from fluoroscopic assisted Port-A-Cath placeme nt procedure. No suspicious or unexpected finding. Fluoro time was 0.9 minutes.
== END 2019-09-06 10:15 | disposition home or self-care (01) ==
LOC: OR 06:35
PROVIDERS: ATTEND Surgery
PROC: 0JH60WZ Insertion of Totally Implantable Vascular Access Device into Chest Subcutaneous Tissue and Fascia, Open Approach (ICD-10-PCS; principal; 2019-09-06 07:30)
DX: C19 Malignant neoplasm of rectosigmoid junction (principal); E11.9 Type 2 diabetes mellitus without complications; I10 Essential (primary) hypertension; E07.9 Disorder of thyroid, unspecified; F40.240 Claustrophobia; G89.29 Other chronic pain; M54.5 Low back pain; Z99.81 Dependence on supplemental oxygen; Z85.46 Personal history of malignant neoplasm of prostate; Z88.6 Allergy status to analgesic agent; Z88.8 Allergy status to other drugs, medicaments and biological substances; Z91.040 Latex allergy status; Z90.49 Acquired absence of other specified parts of digestive tract
CPT/HCPCS: 85025; 80048; 36415; 82947 ×2; 71045; 71046; 36561; J2704; J1644 ×2; J3010; J1100; J2175; J0690; J7030; J2405; C1788; 76000; J2250

== ENCOUNTER 2019-12-20 08:07 | Day surgery (SDC) | payer OTHER ==
[2019-12-19 14:20] LABS: Absolute Lymphocytes (CBC) 0.8 K/uL (0.7-4.9); Basophils % 0.6 % (0-1.3); Hematocrit 36.3 % (39.6-49.0); Lymphocytes % 11.9 % (15.3-44.8); MPV 8.5 fL (7.6-11.3); RBC Red Blood Cell Count 4.14 M/uL (4.33-5.43)
[2019-12-19 14:23] LABS: Potassium 3.8 mmol/L (3.5-5.1)
--- NOTE | 2019-12-19 14:38 | RAD REPORT ---
EXAM DESCRIPTION: RAD - Chest Pa And Lat (2 Views) - 12/19/2019 2:32 pm CLINICAL HISTORY: pre op Chest pain. COMPARISON: Chest Single View dated 09/06/2019; Chest Pa And Lat (2 Views) dated 09/04/2019; Chest Pa A nd Lat (2 Views) dated 05/05/2018; Chest Single View dated 05/04/2018 FINDINGS: The lungs are clear. The heart is upper limit of normal in size. No displaced fractures. L eft-sided venous catheter tip in the SVC.
--- OUTSIDE RECORDS SUMMARY | 2019-12-20 08:24 | XMS REPORT | Clinical Summary ---
:1960 Author Organization [facility] Address [address] [place] [address] Care Team Providers Name Role Phone Asked, [...] Encounters Date Type Specialty Care Team Description 11/30/2019 Documentation General Surgery Sofiya Dwyer NP-C 11/30/2019 Documentation General Surgery Sofiya Dwyer NP-C 07/18/2019 Orders Only General Surgery Yuliya, Malignant neoplasm of Sofiya Pemberton rectum (HC C) (Primary PHARMACY CLERK-C Dx) 06/06/2019 Hospital Encounter Radiology José Miguel Rose Malignant neoplasm of MD Raymundo rectum (HCC) 05/30/2019 Orders Only General Surgery Sofiya Dwyer NP-C 05/23/2019 Orders Only General Surgery Sofiya Dwyer NP-C 05/16/2019 Transcribe Orders Access José Miguel Rose Malignant neoplasm of MD Raymundo rectum ([facility]) (P rimary Dx) after 12/19/2018 Social History Tobacco Use Types Packs/Day Years Used Date Never Assessed Sex Assigned at Date Recorded Not on file Last Filed Vital Signs Vital Sign Reading [...] 2011 SHINGLES VACCINES (#1) 2011 INFLUENZA VACCINE 11/28/2019 Procedures Procedure Name Priority Date/Time Associated Comments [...] are i n the results section. after 12/19/[address] Chest W Contrast Abdomen W [...] the ascending thoracic aorta as detailed above. [facility]-[id number] Dictated and approved by radiology resid ent/fellow: [...] the ascending thoracic aorta as detailed above. [facility]-[id number] Dictated and approved by radiology resid ent/fellow: Virgil Gonzalez M.D. I, Fan Simmons MD, personally reviewed t he images and resident's/fellow's findings and agree with the final report. Performing Organization Address City/State/ZIP Code Phon e Number [facility] [address] [place] [address] Estimated GFR (06/06/2019 12:28 PM CDT) Estimated GFR 83 mL/min/1.73 [facility] Comment: m2 HOSPITAL Catergory Units Interpretation G1 [...] in 2014. Specimen Blood Performing Organization Address City/[facility]/ZIP [facility] Phon e Number [facility] DEPARTMENT OF PATHOLOGY AND [address], [place] [id number] [place] [address] POC creatinine (06/06/2019 12:28 PM CDT) POC creatinine 1.0 0.7 - 1.2 [facility] Comment: mg/dl HOSPITAL Health Services Administrator Name: Suri Vang Device ID: [id number] Specimen Blood Performing Organization Address City/[facility] Code Phon e Number [facility] DEPARTMENT OF PATHOLOGY AND [address] [place] [address] [phone] [address] after 12/19/2018 Insurance Payer Benefit Plan / Subscriber ID Effective Dates Phone Addre ss Type Group MEDICARE MEDICARE PART A [id number] 2018-Present [place], [place] Medicare AND B Advance Directives For more information, please contact: [phone] Type Date Recorded 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
--- OUTSIDE RECORDS SUMMARY | 2019-12-20 08:25 | XMS REPORT ---
:1960 Author Organization [employer] Care Team Providers Name Role Phone Asmita Briseno Provider Role Unavailable Allergies, Adverse Reactions, Alerts Substance Reaction Event Type Latex Gloves Info Not Available Drug Allergy Morphine Sulfate Info Not Available Drug Allergy topical steriods Info Not Available Non Drug Allergy Problems Problem Type Condition Code Onset Dates Condition Statu s Assessment History of kidney stones Z87.442 Act melisa Assessment Prostate cancer C61 Active Assessment Stress incontinence of urine N39.3 Active Assessment Erectile dysfunction N52.9 Active Assessment Bladder incontinence R32 Active Problem Borderline diabetes R73.09 Active Problem Hyperlipidemia, mixed E78.2 Active Problem Erectile dysfunction N52.9 Active Problem Adult BMI 50.0-59.9 kg/sq m Z68.43 Active Problem Morbid (severe) obesity due to E66.01 Active excess calories Problem Chronic back pain M54.9 Active Problem Nocturnal enuresis N39.44 Active Problem Generalized anxiety disorder F41.1 Active Problem History of prostate cancer Z85.46 A ctive Problem Panic disorder [episodic paroxysmal F41.0 Active anxiety] Problem Acute stress reaction F43.0 Active Problem Hypothyroidism E03.9 Active Problem Benign essential HTN I10 Active Problem Non-seasonal allergic rhinitis, J30.89 Active unspecified trigger Problem Bladder incontinence R32 Active Problem Lumbar back pain with radiculopathy M54.16 Active affecting lower extremity Problem New onset seizure R56.9 Active Problem Adenocarcinoma, colon C18.9 Active Problem Low testosterone in male R79.89 Act melisa Problem HSV-1 (herpes simplex virus 1) B00.9 Active infection Problem Chronic diastolic congestive heart I50.32 Active failure Problem Allergic rhinitis J30.9 Active Problem Stress incontinence of urine N39.3 Active Problem H/O prostatectomy Z90.79 Active Problem 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 Problem VANNESA (obstructive sleep apnea) G47.33 Active Problem 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 Medications Medication Code Code Instructions Start End Status Dosage System Date Date Hydrocodone-Acet NDC 53845825212 5-325 MG Orally Act melisa 1 tablet aminophen BID PRN as needed Cialis ND 62916045114 5 MG Orally Active 1 tablet Once a day as needed Lipitor [facility] 55789046838 20 MG Active TAKE ONE TABLET BY MOUTH DAILY Losartan [facility] 56365066860 50 MG Active TAKE ONE Potassium TABLET BY MOUTH DAILY Glucophage NDC 0 500 MG Active TAKE ONE TABLET BY MOUTH TWICE A DAY WITH A MEAL Fluoxetine HCl [facility] 14169448062 20 MG Active TAKE ONE CAPSULE BY MOUTH THREE TIMES A DAY Oxybutynin [facility] 66182603354 5 MG Orally Active 1 tab let Chloride Twice a day Losartan [facility] 86323605577 50 MG Orally Active 1 tabl et Potassium Once a day Tramadol HCl [facility] 01161819309 50 MG Orally Active 1 tablet every 6 hrs as needed Lasix [facility] [address]-25 20 MG Active TAKE ONE TABLET BY MOUTH DAILY Fluoxetine HCl [facility] 76785213918 20 MG Orally Active 1 capsule TID Lipitor [facility] 67172590558 20 MG Orally Active 1 table t Once a day Levothyroxine [facility] 17985464770 50 MCG Active TAKE O NE Sodium TABLET BY MOUTH EVERY MORNING ON EMPTY STOMACH Protonix [facility] 40235636067 40 MG Active TAKE ONE TABLET BY MOUTH DAILY Keppra [facility] 40362262656 500 MG Orally Active 1 tabl et Twice a day Trazodone HCl [facility] 07154550190 100 MG Orally Active 1 tablet Once a day at bedtime as needed Losartan [facility] [address]-09 50 MG Active TAKE ONE Potassium TABLET BY MOUTH DAILY Lasix [facility] 84956658549 20 MG Active TAKE ONE TABLET BY MOUTH DAILY Metformin HCl [facility] 52408628853 500 MG Orally Active 1 tablet BID with a meal Diazepam [facility] 68536903940 2 MG Orally Active 0.5 tab let every 12 hrs as needed PRN severe anxiety Neomycin-Polymyx [facility] 72120880447 3.5-16345-5 September 13, Active 4 drops in-HC Otic Three 2020 into times a day affected ear ProAir HFA [facility] 94899167236 108 (90 Base) Active 2 p uffs as MCG/ACT needed Inhalation every 6 hrs Levetiracetam [facility] 10752605476 500 MG Active TAKE O NE TABLET BY MOUTH TWICE A DAY Lasix [facility] 58450348519 20 MG Orally Active 1 table t Once a day Results No Known Results Summary Purpose [employer]ClinicalWorks Submission
--- OUTSIDE RECORDS SUMMARY | 2019-12-20 08:25 | XMS REPORT ---
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 Assessment Chronic diastolic congestive heart I50.32 Active failure Assessment Malignant neoplasm of rectum C20 Active Assessment Iron deficiency anemia secondary to D50.0 Active blood loss (chronic) Assessment Panic disorder [episodic paroxysmal F41.0 Active anxiety] Assessment Adenocarcinoma, colon C18.9 Active Problem Borderline diabetes R73.09 Active Problem Hyperlipidemia, mixed E78.2 Active Problem Erectile dysfunction N52.9 Active Problem Chronic back pain M54.9 Active Problem Hypothyroidism E03.9 Active Problem Benign [...] without psychotic features without prior episode Assessment Adult BMI 50.0-59.9 kg/sq m Z68.43 Active Assessment Morbid (severe) obesity due to E66.01 Active excess calories Assessment Low testosterone in male R79.89 Act melisa Assessment Acute stress reaction F43.0 Active Assessment History of prostate cancer Z85.46 A ctive Assessment Allergic rhinitis J30.9 Active Assessment Chronic back pain M54.9 Active Assessment HSV-1 (herpes simplex virus 1) B00.9 Active infection Problem Adult BMI 50.0-59.9 kg/sq m Z68.43 Active Assessment H/O prostatectomy Z90.79 Active Problem Morbid (severe) obesity due to E66.01 Active excess calories Problem Nocturnal enuresis N39.44 Active Problem Generalized anxiety disorder F41.1 Active Problem History of prostate cancer Z85.46 A ctive Problem Panic disorder [episodic paroxysmal F41.0 Active anxiety] Problem Acute stress reaction F43.0 Active Problem Non-seasonal allergic rhinitis, J30.89 Active unspecified trigger Assessment Generalized anxiety disorder F41.1 Active Problem Lumbar back pain with radiculopathy M54.16 Active affecting lower extremity Assessment Hyperlipidemia, mixed E78.2 Active Problem New onset seizure R56.9 Active Assessment Bladder incontinence R32 Active Problem Adenocarcinoma, colon C18.9 Active Assessment Borderline diabetes R73.09 Active Problem Low testosterone in male R79.89 Act melisa Assessment Erectile dysfunction N52.9 Active Assessment Lumbar back pain with radiculopathy M54.16 Active affecting lower extremity Assessment VANNESA (obstructive sleep apnea) G47.33 Active Assessment New onset seizure R56.9 Active Assessment Nocturnal enuresis N39.44 Active Assessment Hypothyroidism E03.9 Active Assessment Benign essential HTN I10 Active Medications Medication Code Code Instructions Start End Status Dosage System Date Date ProAir HFA [facility] 00542490731 108 (90 Base) Active 2 p uffs as MCG/ACT needed Inhalation every 6 hrs Diazepam [facility] 09932018252 2 MG Orally Active 0.5 tab let every 12 hrs as needed PRN severe anxiety Oxybutynin [facility] 14073877138 5 MG Orally Active 1 tab let Chloride Twice a day Keppra [facility] 41920862855 500 MG Orally Active 1 tabl et Twice a day Lipitor [facility] 55707218602 20 MG Active TAKE ONE TABLET BY MOUTH DAILY Protonix [facility] 48301685598 40 MG Active TAKE ONE TABLET BY MOUTH DAILY Levothyroxine [facility] 44901365008 50 MCG Active TAKE O NE Sodium TABLET BY MOUTH EVERY MORNING ON EMPTY STOMACH Trazodone HCl [facility] 61485739296 100 MG Orally Active 1 tablet Once a day at bedtime as needed Losartan [facility] 58457260290 50 MG Orally Active 1 tabl et Potassium Once a day Lasix [facility] [address]-10 20 MG Active TAKE ONE TABLET BY MOUTH DAILY Neomycin-Polymyx [facility] 44870222198 3.5-39291-7 September 13, Active 4 drops in-HC Otic Three 2020 into times a day affected ear Cialis [facility] 02012400609 5 MG Orally Active 1 tablet Once a day as needed Glucophage NDC 0 500 MG Active TAKE ONE TABLET BY MOUTH TWICE A DAY WITH A MEAL Fluoxetine HCl [facility] 21143761985 20 MG Active TAKE ONE CAPSULE BY MOUTH THREE TIMES A DAY Fluoxetine HCl [facility] 99648604464 20 MG Orally Active 1 capsule TID Lasix [facility] 28941744651 20 MG Orally Active 1 table t Once a day Levetiracetam ND 45006868428 500 MG Active TAKE O NE TABLET BY MOUTH TWICE A DAY Levothyroxine [facility] 85821289448 50 MCG Orally Active 1 tablet Sodium Once a day on an empty stomach in the morning Metformin HCl [facility] 49009651594 500 MG Orally Active 1 tablet BID with a meal Hydrocodone-Acet ND 15774240466 5-325 MG Orally Act melisa 1 tablet aminophen BID PRN as needed Lasix [facility] 17762793997 20 MG Active TAKE ONE TABLET BY MOUTH DAILY Lipitor ND 42108692256 20 MG Orally Active 1 table t Once a day Losartan [facility] 20967153652 50 MG Active TAKE ONE Potassium TABLET BY MOUTH DAILY Tramadol HCl [facility] 83272275411 50 MG Orally Active 1 tablet every 6 hrs as needed Losartan [facility] [address]-02 50 MG Active TAKE ONE Potassium TABLET BY MOUTH DAILY Oxybutynin ND 85676571639 5 MG Orally Active 1 tab let Chloride Twice a day Results No Known Results Summary Purpose eClinicalWorks Submission
--- OUTSIDE RECORDS SUMMARY | 2019-12-20 08:25 | XMS REPORT | Continuity of Care Document ---
:1960 Author Organization [facility] t Address [address] [place] [address] Care Team Providers Name Role Phone Asked, Pcp Primary Care Physician Unavailable Nilay Linn Attending Clinician [phone] Raymundo Mei MD Attending Clinician Payers Payer Name Policy Type Policy Effective Date Expiration Date Sour ce Number MEDICAREMEDICARE PART [id number] 2018 [place] AND 00:00:00 Jew [id number] 2018- [place], [place] Condition Condition Condition Status Onset Resolution [...] St emia, emia, [facility] Chronic Chronic Problem Active [facility] back pain back pain Luke s - Memoria l Outpati ent Clinics Bladder Bladder Problem Active [facility] incontinen incontinen Michelle kes - ce ce [facility] Benign Benign Problem Active [facility] essential essential Luke s - HTN HTN Memoria l [facility] Chronic Chronic Problem Active [facility] diastolic diastolic Luke s - congestive congestive Me moria heart heart l failure failure Outpati ent Clinics VANNESA VANNESA Problem Active [facility] (obstructi (obstructi Michelle kes - ve sleep ve sleep Memori a apnea) apnea) l [facility] Generalize Generalize Problem Active C [facility] d anxiety d anxiety Luke s - disorder disorder Memori a l [facility] Nocturnal Nocturnal Problem Active [facility] enuresis enuresis [facility] Current Current Problem Active [...] prostatect prostatect Michelle kes - sam sam [facility] History of History of Problem Active C [facility] prostate prostate [facility] - cancer cancer [facility] Morbid Morbid [...] St noma, noma, [facility]ukes - colon colon [facility] Panic Panic Problem Active [facility] disorder disorder [facility] - [episodic [episodic Lance kristin paroxysmal paroxysmal l anxiety] anxiety] Outvat i ent Clinics Acute Acute Problem Active [facility] stress stress [facility] - reaction reaction Memori a l [facility] ent [facility] Non-season Non-season Problem Active C [facility] al al [facility] - allergic allergic Memori a rhinitis, rhinitis, l unspecifie unspecifie Ou tpati d trigger d trigger ent Clinics History of History of Diagnosis Active [facility] kidney kidney [facility] - stones stones Memoria l [facility] ent [facility] Prostate Prostate Diagnosis Active [facility] cancer cancer [facility] Allergies, Adverse Reactions, Alerts Allergy Allergy Status Severity Reaction(s) Onset Inactive Treating Comm ents Source Name Type Date Date Clinician Latex Propensi Active Rash 2020-0 [place] ty to 3-10 Methodi adverse 00:00: st reaction 00 s to drug Morphine Propensi Active Anaphylaxis 2020-0 [facility] ty to 3-10 [facility] adverse 00:00: st reaction 00 s to drug morphine DA Active U 2020-0 [facility] 3- [place] [facility]: [facility] 00 are [facility] st latex DA Active U 2020-0 [facility] 3- [place] 00:00: [facility] 00 are [facility] st TOPICAL DA Active U 2020-0 [facility] STEROIDS 3- [place] 00:00: Health[facility] 00 are [facility] st Latex Adverse Active Info Not [facility] Gloves Reaction Available [facility] - [facility] ent [facility] Morphine Adverse Active Info Not [facility] t Sulfate Reaction Available ke [facility] - [facility] topical Adverse Active Info Not [facility] steriods Reaction Available Paulino es - [facility] Social History Social Habit Start Date Stop Date Quantity Comments Source Sex Assigned At Jade ston Jew Medications Ordered Filled Start Stop Current Ordering Indication Dosage Frequency Signature Comments Components Source Medication Medication Date Date Medication? Clinician (SIG) Name Name Neomycin-Po Neomycin-Po 2019-0 Yes Asmita [address] lymyxin-HC lymyxin-HC 6-18 [place] into [facility] - 00:00: affected Memoria 00 ear l [facility] ent [facility] Diazepam Diazepam 2019- Yes Asmita 0.[address] 6-02 [place] as needed [facility] - 00:00: Memoria 00 l [facility] ent [facility] metFORMIN 2019-0 Yes 500mg Q.5D Take 500 Jade ston (GLUCOPHAGE 3-10 mg by Methodi ) 500 mg 12:44: mouth 2 st tablet 00 (two) times a day with meals. FLUoxetine 2020-0 Yes 60mg QD Take 60 mg [place] (PROzac) 10 3-10 by mouth Meth hieu MG capsule 12:43: daily. st 47 HYDROcodone 2020-0 Yes acute pain 1{tbl} Q.5D Take 1 Peña -acetaminop 3-10 tablet by Met liannei hen (NORCO) 12:43: mouth 2 st 5-325 mg [...] 2020-0 2020- No 500mg Take 1 [place] LE (FLAGYL) 2-25 02-26 tablet Metho di 500 MG 00:00: 23:59 [...] and 10 pm night prior to surger Keppra Keppra Yes Asmita [address] [address] [facility] - Memoria l [facility] ent Clinics Lipitor Lipitor Yes Asmita [address] [facility] - Memoria l [facility] ent Clinics Tramadol Tramadol Yes Asmita [address] HCl HCl [place] as needed [facility] - Memoria l [facility] ent Clinics ProAir HFA ProAir HFA Yes Asmita [address] [facility] [place] needed [facility] - Memoria l [facility] ent Clinics Protonix Protonix Yes Asmita TAKE ONE [facility] [place] TABLET BY [facility]ukes - MOUTH Memoria DAILY l [facility] Metformin Metformin Yes Asmita [address] HCl HCl [place] with a Lukes - meal Memoria l [facility] ent Clinics Trazodone Trazodone Yes Asmita [address] HCl HCl Finn at bedtime [facility]ukes - as needed Memoria l [facility] ent Clinics Fluoxetine Fluoxetine Yes Asmita [address] HCl HCl [place] [facility] - Memoria l [facility] ent Clinics Lasix Lasix Yes Asmita [address] [facility] [facility] [place] [facility] - Memoria l [facility] ent Clinics Losartan Losartan Yes Asmita [address] Potassium Potassium Finn L ukes - Memoria l [facility] ent Clinics Losartan Losartan Yes Asmita TAKE ONE [facility] Potassium Potassium [place] TABLET BY [facility] - MOUTH Memoria DAILY l [facility] ent Clinics Hydrocodone Hydrocodone Yes Asmita [address] -Acetaminop -Acetaminop [place] as needed [facility]ukes - hen hen Memoria l [facility] ent Clinics Lasix Lasix Yes Asmita TAKE ONE [facility] [place] TABLET BY [facility]ukes - MOUTH Memoria DAILY l Outpati ent Clinics Oxybutynin Oxybutynin Yes Asmita [address] Chloride Chloride Finn Paulino es - Memoria l Outpati ent Clinics Glucophage Glucophage Yes Asmita TAKE ONE [facility] [place] TABLET BY Lukes - MOUTH Memoria TWICE A l DAY WITH A Outpati MEAL ent Clinics Fluoxetine Fluoxetine Yes Asmita TAKE ONE [facility] HCl HCl Finn CAPSULE BY Lukes - MOUTH Memoria THREE l TIMES A Outpati DAY ent Clinics Levetiracet Levetiracet Yes Asmita TAKE ONE [facility] am am Finn TABLET BY Lukes - MOUTH Memoria TWICE A l DAY Outpati ent Clinics Cialis Cialis Yes Asmita [address] Finn as needed Lukes - Memoria l Outpati ent Clinics Levothyroxi Levothyroxi Yes Asmita TAKE ONE [facility] ne Sodium ne Sodium [place] TABLET BY [facility]ukes - MOUTH Memoria EVERY l MORNING ON Outpati EMPTY ent STOMACH Clinics Immunizations Ordered Filled Immunization Date Status Comments [facility] e Immunization Name Name Mily Minor 2018-11-[address] [facility] Outpatient [facility] Vital Signs Vital Name Observation Time Observation Value Comments Source Body height 2019-06-06 12:16:00 170.2 cm Casey Rowland Body weight 2019-06-06 12:16:00 147.419 kg Casey Rowland BMI 2019-06-06 12:16:00 50.90 kg/m2 Casey Rowland Procedures Procedure Date / Time Performed Performing Clinician Sherrie e CT CHEST W CONTRAST 2019-06-06 13:02:51 Flaquito Mei ABDOMEN W CONTRAST PELVIS W CONTRAST POC CREATININE 2019-06-06 12:28:00 Flaquito Mei ESTIMATED GFR 2019-06-06 12:28:00 Flaquito Mei Plan of Care Planned Activity Planned Date Details Comments Source Future Scheduled 2019-11-28 INFLUENZA VACCINE Per huertas [facility] 00:00:00 [code = INFLUENZA VACCINE] Future Scheduled 2011 COLONOSCOPY SCREENING Ho ton [facility] Test 00:00:00 [code = COLONOSCOPY SCREENING] Future Scheduled 2011 SHINGLES VACCINES Per huertas [facility] Test 00:00:00 (#1) [code = SHINGLES VACCINES (#1)] Encounters Start End Encounter Admission Attending Care Care Encounter Source Date/Time Date/Time Type Type Clinicians Facility Department ID 2019-10-25 2019-10-25 [facility] [id number] [address] 10:00:00 10:00:00 t Specialty/U Michelle kes - Specialty rology Memori a /Urology Clinic l Clinic Outpati ent Clinics 2019-10-04 2019-10-04 [facility] [id number] [facility] 10:30:00 10:30:00 t [facility] [facility] Medicine l Medicine Outpati ent Clinics 2019-09-14 2019-09-14 [facility] [id number] 16:00:00 16:00:00 t [employer] [facility] Medicine l Medicine Outpati ent Clinics 2019-09-11 2019-09-11 [facility] [id number] 10:32:00 10:32:00 t [employer] [facility] Family Medicine l Medicine Outpati ent Clinics 2019-08-31 2019-08-31 [facility] [id number] 11:59:00 11:59:00 t [employer] [facility] Medicine l Medicine Outpati ent Clinics 2019-08-29 2019-08-29 [facility] [id number] 09:15:00 09:15:00 t [employer] [facility] Medicine l Medicine Outpati ent Clinics 2019-08-24 2019-08-24 [facility] [id number] 10:36:00 10:36:00 t [employer] [facility] Family Medicine l Medicine Outpati ent Clinics 2019-07-12 2019-07-12 [facility] [id number] 10:30:00 10:30:00 t Specialty/U Michelle kes - Specialty rology Memori a /Urology Clinic l Clinic Outpati ent Clinics 2019-07-05 2019-07-05 [facility] [id number] 14:15:00 14:15:00 t [employer] [facility] Family Medicine l Medicine Outpati ent Clinics 2019-06-06 2019-06-06 Outpatient FLAQUITO MEI [facility] [id number] [place] 00:00:00 00:00:[address] 2019-04-05 2019-04-05 [facility] [id number] 14:01:00 14:01:00 t [employer] [facility] Outpati ent Clinics 2019-04-05 2019-04-05 [facility] [id number] 10:00:00 10:00:00 t [employer] [facility] Outpati ent Clinics 2019-03-01 2019-03-01 [facility] [id number] 09:15:00 09:15:00 t [employer] [facility] Outpati ent Clinics 2019-01-24 2019-01-24 [facility] [id number] 10:34:00 10:34:00 t Specialty/U Michelle kes - Specialty rology Memori a /Urology Clinic l Clinic Outpati ent Clinics 2019-01-10 2019-01-10 [facility] [id number] 10:00:00 10:00:00 t Specialty/U Michelle kes - Specialty rology Memori a /Urology Clinic l Clinic Outpati ent Clinics 2018-12-16 2018-12-16 [facility] [id number] 14:39:00 14:39:00 t Specialty/U Michelle kes - Specialty rology Memori a /Urology Clinic l Clinic Outpati ent Clinics 2018-11-29 2018-11-29 [facility] [id number] 08:45:00 08:45:00 t [employer] [facility] Medicine Outpati ent Clinics 2018-06-14 2018-06-14 [facility] [id number] 10:16:00 10:16:00 t Specialty/U Michelle kes - Specialty rology Memori a /Urology Clinic l Clinic Outpati ent Clinics 2018-06-08 2018-06-08 [facility] [id number] 11:13:00 11:13:00 t [employer] - Drive [facility] Medicine Medicine Outpati ent Clinics 2018-05-25 2018-05-25 [facility] [id number] 15:26:00 15:26:00 t [place] [employer] Luke s - Drive [facility] Medicine Outpati ent Clinics 2018-05-16 2018-05-16 [facility] [id number] 15:45:00 15:45:00 t [place] [employer] Luke s - Drive [facility] Medicine Outpati ent Clinics 2018-05-03 2018-05-03 [facility] [id number] 14:30:00 14:30:00 t [place] [employer] Luke s - Drive [facility] Medicine Outpati ent Clinics 2018-04-04 2018-04-04 [facility] [id number] 08:15:00 08:15:00 t [place] [employer] Luke s - Drive [facility] Outpati ent Clinics 2017-11-24 2017-11-24 [facility] [id number] 09:00:00 09:00:00 t Specialty/U Michelle kes - Specialty rology [facility] a /Urology Clinic l Clinic Outpati ent Clinics 2017-11-17 2017-11-17 [facility] [id number] 15:11:00 15:11:00 t [place] [employer] - Drive [facility] Outpati ent Clinics 2017-11-15 2017-11-15 [facility] [place] [id number] 10:30:00 10:30:00 t [place] [employer] [employer] - Drive [facility] Outpati ent Clinics Results Test Description Test Time Test Comments Results Result Sour e Comments SURGICAL 2019-06-26 SPECIMENS 18:14:00 RUN DATE: 06/26/19 [facility] - LAB PAGE 1 RUN TIME: 1814 Specimen Inquiry RUN USER: INTERFACE PATIENT: RA MAST LOC: PJonny5N POD B U #: [id number] AGE/SX: 59/M ROOM: [facility] RE06/20/19REG DR: Flaquito Mei MD : 62 BED: 1 DIS: 06/21/19 STATUS: DIS IN TLOC: SPEC #: [id number] RECD: 06/20/19 STATUS: LINDA SHARDA #: [id number] PALOMA: 06/20/19-[address]: Flaquito Mei MD ENTERED: 06/20/19 SP TYPE: SURG OTHR [...] The above results were discussed with Dr. Mei on June 26, 2019 at 6:00 pm. [...] the smaller piece, in a single cassette. APPLICATION CHEMIST/th CONTINUED ON NEXT PAGE RUN DATE: 06/26/19 [place] [facility] - LAB PAGE 2 RUN TIME: 1813 Specimen Inquiry RUN USER: INTERFACE SPEC #: [id number] PATIENT: RA MAST #[id number] (Continued) MICROSCOPIC DESCRIPTION Performed. Signed SIGNATURE ON FILE Paulina Shrestha 06/26/19 1814 END OF REPORT SURGICAL 2019-06-26 SPECIMENS 18:14:00 RUN DATE: 07/03/19 [facility] - LAB PAGE 1 RUN TIME: 1407 Specimen Inquiry RUN USER: INTERFACE PATIENT: RA MAST LOC: Yennifer Bowers U #: [id number] AGE/SX: 59/M ROOM: [facility] RE06/20/19REG DR: Flaquito Mei MD : 62 BED: 1 DIS: 06/21/19 STATUS: DIS IN TLOC: SPEC #: [id number] RECD: 06/20/19 STATUS: LINDA REGulshan #: [id number] PALOMA: 06/20/19-[address]: Flaquito Mei MD ENTERED: 06/20/19 SP TYPE: SURG OTHR DR: ORDERED: PATHGM4, PATH SPEC, H E STAIN HISTOLOGY: TISSUE ID BLK PCS RAYMOND LEV / PROCEDURE DISPOSITION ____ ___ ___ ___ ___ RECTAL BX A 1 1 TISSUES: A. RECTAL BX - Rectal Cancer ADDENDUM FINDINGS Addendum #1 Entered: 07/03/19-1278 The purpose of this addendum is to report results of mismatch repair protein expression by immunohistochemistry. For complete results please see corresponding Integrated Oncology Report ([id number]). DIAGNOSIS: MLH1 - expressed MSH2 - expressed [...] The above results were discussed with Dr. Mei on June 26, 2019 at 6:00 pm. Multiple tissue levels were examined. This case was reviewed by multiple CONTINUED ON NEXT PAGE RUN DATE: 07/03/19 [facility] - LAB PAGE 2 RUN TIME: 1407 Specimen Inquiry RUN USER: INTERFACE SPEC #: [id number] PATIENT: RA MAST #[id number] (Continued) COMMENT (Continued) pathologists in intradepartmental consultation, [...] the smaller piece, in a single cassette. APPLICATION CHEMIST/th MICROSCOPIC DESCRIPTION Performed. Signed SIGNATURE ON FILE Paulina Shrestha 06/26/19 1814 END OF REPORT GLUBED 2019-06-21 11:47:00 Test Item Value Reference Range Interpretation Comme nts GLUBED (test code = GLUBED) 94 MG/DL 70-105 N [id number] 08:13:00 Test Item Value Reference Range Interpretation Comments GLUBED (test code = GLUBED) 114 MG/DL 70-105 H BASIC METABOLIC [id number] 05:14:00 Test Item Value Reference Range Interpretation [...] mg/dL 8.8-10.2 N = CA) CBC W/AUTO [id number] 05:07:00 Test Item Value Reference Range Interpretation [...] BA#) 0.02 x10 3/uL 0.0-0.20 N AG [id number] 04:07:00 Test Item Value Reference Interpretation Comments Range AG CARCINOEMBRYONIC 1.1 ng/mL 0.0-4.7 (test code = CEA) Nonsmokers <3.9 Smokers <5.6Roche [employer] ostics Electrochemilum inescence Immunoassay(ECL IA)Values obtained with d ifferent assay methods o r kitscannot be used interch angeably. Results cannot beinterpreted as absolute peterson dence of the presence orabse nce of malignant disea se.Performed At: [facility] [place], [place] [id number] Esteban Sahni MD Ph:[phone] [id number] 22:39:00 Test Item Value Reference Range Interpretation Comments GLUBED (test code = GLUBED) 101 MG/DL 70-105 N [id number] 17:26:00 Test Item Value Reference Range Interpretation Comments GLUBED (test code = GLUBED) 144 MG/DL 70-105 H [id number] 13:37:00 Test Item Value Reference Range Interpretation Comments GLUBED (test code = GLUBED) 96 MG/DL 70-[address] Chest W Contrast Abdomen W Contrast Pelvis W [id number] 15:08:15Hm Interface, Radiology Results 06/06/2019 3:11 PM CDTEXAMINATION: [...] of the ascending thoracic aorta as detailed above.[facility]-[id number] and approved by doctor of radiology/fellow: Jayjay Landers, Fan Simmons MD, personally reviewed the images and resident's/fellow's findings and agree with the final report.Casey Rowland POC [id number] 12:30:32 Test Item Value Reference Range Interpretation Comments POC creatinine (test 1.0 mg/dl 0.7-1.2 Operato r Name: Suri code = 54437-5) Rachid e ID: [id number] Casey MethodistEstimated [id number] 12:30:32 Test Item Value Reference Range Interpretation Comments Estimated GFR (test 83 mL/min/1.73 m2 [facility] Units code = 61279-0) Interpretati onG1 >=90 Normal or highG2 60-89 Mildly oazyvmobvG8s 45-59 Mildly to mode rately myqssnzkbD1x 30-44 Moderately to severely decreasedG4 15-29 Severely decre asedG5 <15 Kidn ey failureThe eGFR was calculated usin g the Chronic Kidney Disease Epidemiology Co llaboration (CKD-EPI) equat ion. Interpretation is based on recommendations of the National Kidney Foundation-Kidn ey Disease Outcomes Qualit y Initiative (NKF-KDOQI) pub lished in 2014. Casey RowlandCOMPREHENSIVE METABOLIC [id number] 14:24:00 Test Item Value Reference Range Interpretation [...] PHOSPHATASE (test code = ALKP) CBC W/AUTO [id number] 13:38:00 Test Item Value Reference Range Interpretation [...]
[2019-12-20] MEDS ORDERED: NA CHLORIDE 0.9% 1,000 ML ONE (08:53)
[2019-12-20] MEDS ORDERED: LIDOCAINE 1% MPF 30 ML VIAL ONE (09:20)
[2019-12-20] MEDS: CEFAZOLIN/SWI 1gm 1 GM/10 ML SYR ONE ×2 (09:51→10:20)
[2019-12-20] MEDS ORDERED: LIDOCAINE 2% MPF 5 ML VIAL ONE (10:09)
[2019-12-20] MEDS ORDERED: propofoL 200 MG/20 ML VIAL IV ONE (10:09)
[2019-12-20] MEDS ORDERED: MIDAZOLAM HCL 2 MG/2 ML INJ ONE (10:09)
[2019-12-20] MEDS ORDERED: FENTANYL CITR 100 MCG/2 ML ONE (10:29)
[2019-12-20] MEDS ORDERED: GLYCOPYRROLATE 0.2 MG/ML SYR ONE ×2 (10:37→10:39)
--- NOTE | 2019-12-20 10:59 | P.BOP ---
Preoperative diagnosis: colorectal cancer Postoperative diagnosis: same Primary procedure: Removal of portacath Estimated blood loss: <5cc Specimen: intact portacath Findings: as above Anesthesia: General Complications: None Transferred to: Recovery Room Condition: Good
[2019-12-20] MEDS: MEPERIDINE HCL 50 MG/ML ONE ×2 (11:08→11:15)
[2019-12-20] MEDS ORDERED: MEPERIDINE HCL 25 MG/ML SYR ONE (11:10)
[2019-12-20] MEDS ORDERED: ONDANSETRON 4 MG/2 ML VIAL ONE (11:10)
--- NOTE | 2019-12-20 12:04 | EKG ---
Test Date: 2019-12-19 Test Time: 14:07:03 [employer] Supervisor: ELLA MEASUREMENT RESULTS: Intervals: Rate: 92 WI: 178 QRSD: 92 QT: 362 QTc: 447 [place]: P: 58 WI: 178 QRS: -35 T: 26 INTERPRETIVE STATEMENTS: Normal sinus rhythm Left axis deviation Abnormal ECG Compared to ECG 05/04/2018 13:31:08 Left-axis deviation now present Sinus tachycardia no longer present Left anterior fascicular block no longer present Myocardial infarct finding no longer present Electronically Signed On 12-20-19 12:01:36 CDT by Pedrito Ritter
--- NOTE | 2019-12-20 12:07 | OP ---
Date of Procedure: 12/20/2019 Surgeon: Leonardo Ibarra MD Preoperative Diagnosis: Colorectal cancer. Postoperative Diagnosis: Colorectal cancer. Procedure: Removal of Port-A-Cath. Specimen: Intact Port-A-Cath. Indications: This is a case of a male with history of a colorectal cancer and finishes chemotherapy, doing great. He wants a Port-A-Cath removed. The benefits, alternatives, and risks of the removal were explained, which include, but not limited to infection, bleeding, damage to adjacent structures, anesthesia complication, PE, MT, and even . He also understands this may not relieve any sympt oms. He might need more than one surgical intervention. He understood, signed a consent. Description Of Procedure: The patient brought to the operating room, placed in supine position, anes thesia was done without complication. A time-out was called. Left chest was prepped and draped in s terile fashion. Local anesthesia was applied, followed by sharp incision of the skin. Incision was carried down to subcutaneous tissue. The Port-A-Cath removed from the subcutaneous tissue and then g ently pulled out of the subclavian vein. A Port-A-Cath came back intact. Pressure was applied for 1 5 minutes. The 3-0 chromic was used to close the subcutaneous tissue and then Steri-Strips on top. Sponge count and instrument counts were correct. The patient tolerated the procedure well and the patient was sent to recovery in stable condition. COLE/GLENNY Voice ID: [id number] Report ID: [id number]
[2019-12-20] MEDS ORDERED: HYDROCODONE/APAP 7.5/325 MG TAB ONE (12:10)
--- NOTE | 2019-12-20 12:19 | DS ---
Diagnosis: Colorectal cancer. Procedure: Removal of Port-A-Cath. Disposition: Home. Activity: As tolerated. No heavy lifting. Plan: Follow up in my office in 1 week. Call for appointment [phone]. Keep area dry for 48 hours, then may shower, keep Steri-Strips intact. Medications: Include Ultracet q.4 hours p.r.n. pain. COLE/GLENNY Voice ID: [id number] Report ID: [id number]
[2019-12-20 13:44] VITALS: BP 123/87; TEMP 97.4; O2SAT 98
== END 2019-12-20 12:30 | disposition home or self-care (01) ==
LOC: OR 08:07
PROVIDERS: ATTEND Surgery
PROC: 0JPT0WZ Removal of Totally Implantable Vascular Access Device from Trunk Subcutaneous Tissue and Fascia, Open Approach (ICD-10-PCS; principal; 2019-12-20 11:00)
DX: Z45.2 Encounter for adjustment and management of vascular access device (principal); C18.9 Malignant neoplasm of colon, unspecified; Z20.828 Contact with and (suspected) exposure to other viral communicable diseases
CPT/HCPCS: 93005; 85025; 80048; 36415; 82947 ×2; 88300; 71046; 36590; U0002; J2704; J2250; J3010; J2175 ×2; J0690; J7030; J2405

== ENCOUNTER 2020-06-02 12:22 | Emergency (ER) | payer OTHER ==
--- OUTSIDE RECORDS SUMMARY | 2020-06-02 12:26 | XMS REPORT | Continuity of Care Document ---
:1960 Author Organization [facility] t Address [address] [place] [address] Care Team Providers Name Role Phone ROSE Attending Clinician Unavailable Payers Payer Name Policy Type Policy Number Effective Date Expiration Date S ource Problems This patient has no known problems. Allergies, Adverse Reactions, Alerts Allergy Allergy Status Severity Reaction(s) Onset Inactive Treating Comm ents Source Name Type Date Date Clinician morphine DA Active U 2020-0 [facility] [place] [facility] [address] latex DA Active U 2020-0 [facility] [place] [facility] [address] TOPICAL DA Active U 2020-0 [facility]04 [place] 00:[facility] [address] Latex Adverse Active Info Not [facility] Morphine Adverse Active Info Not [facility] Sulfate Reaction Available [facility] topical Adverse Active Info Not [facility] steriods Reaction Available [facility] Medications Ordered Filled Start Stop Current Ordering Indication Dosage Frequency Signature Comments Components Source Medication Medication Date Date Medication? Clinician (SIG) Name Name Neomycin-Po Neomycin-Po 2020-0 Yes Asmita [address] [facility] lymyxin-HC lymyxin-HC 6-18 [place] into [facility] affected [facility] Diazepam Diazepam 2020-0 Yes Asmita 0.[address] [facility] 6-02 [place] as needed [facility] Keppra Keppra Yes Asmita [address] [facility] [place] [facility] Lipitor Lipitor Yes Asmita [address] [facility] [place] [facility] Tramadol Tramadol Yes Asmita [address] HCl HCl [place] as needed [facility] ProAir HFA ProAir HFA Yes Asmita [address] [facility] [place] needed [facility] Protonix Protonix Yes Asmita TAKE ONE [facility] [place] TABLET BY [facility] DAILY [facility] Metformin Metformin Yes Asmita [address] [facility] HCl HCl [place] with a [facility] meal [facility] Trazodone Trazodone Yes Asmita [address] [facility] HCl HCl [place] at bedtime [facility] as needed [facility] Fluoxetine Fluoxetine Yes Asmita [address] [facility] HCl HCl [place] [facility] Lasix Lasix Yes Asmita [address] [facility] [place] [facility] Losartan Losartan Yes Asmita [address] Potassium Potassium [place] L [facility] Losartan Losartan Yes Asmita TAKE ONE [facility] Potassium Potassium [place] TABLET BY [facility] DAILY [facility] Hydrocodone Hydrocodone Yes Asmita [address] [facility] -Acetaminop -Acetaminop [place] as needed [facility] Lasix Lasix Yes Asmita TAKE ONE [facility] [place] TABLET BY [facility] DAILY l [facility] Oxybutynin Oxybutynin Yes Asmita [address] [facility] Chloride Chloride [place] [facility] Glucophage Glucophage Yes Asmita TAKE ONE [facility] [place] TABLET BY [facility] TWICE A l DAY WITH [facility] MEAL [facility] Fluoxetine Fluoxetine Yes Asmita TAKE ONE [facility] HCl HCl [place] CAPSULE BY [facility] THREE l TIMES A [facility] DAY [facility] Clinics Levetiracet Levetiracet Yes Asmita TAKE ONE [facility] am am Finn TABLET BY [facility] TWICE A l DAY Outpati ent Clinics Cialis Cialis Yes Asmita [address] [facility] [place] as needed [facility] Levothyroxi Levothyroxi Yes Asmita TAKE ONE [facility] ne Sodium ne Sodium [place] TABLET BY [facility] EVERY l MORNING ON Outpati EMPTY ent STOMACH Clinics Immunizations Ordered Filled Immunization Date Status Comments Sour e Immunization Name Name Mily Minor 2018-11-[address] [facility] Out[facility] Procedures This patient has no known procedures. Encounters Start End Encounter Admission Attending Care Care Encounter Source Date/Time Date/Time Type Type Clinicians Facility Department ID 2020-05-08 2020-05-08 [facility] [id number] 2020-04-09 2020-04-09 [facility] [id number] [facility] 2020-01-16 2020-01-16 [facility] [id number] [facility] 2020-01-08 2020-01-08 [facility] [id number] [facility] 2020-01-03 2020-01-03 [facility] [id number] [facility] 2019-10-25 2019-10-25 [facility] [id number] 10:00:00 10:00:00 t Specialty/U Michelle kes - Specialty rology [facility] a /Urology Clinic l Clinic Outpati ent Clinics 2019-10-04 2019-10-04 [facility] [id number] 10:30:00 10:30:00 t [employer] [facility] Family Medicine l Medicine Outpati ent Clinics 2019-09-14 2019-09-14 [facility] [id number] 16:00:00 16:00:00 t [employer] [facility] Medicine Outpati ent Clinics 2019-09-11 2019-09-11 [facility] [id number] 10:32:00 10:32:00 t [employer] [facility] Medicine Outpati ent Clinics 2019-08-31 2019-08-31 [facility] [id number] 11:59:00 11:59:00 t [facility] [employer] [facility] Medicine Outpati ent Clinics 2019-08-29 2019-08-29 [facility] [id number] 09:15:00 09:15:00 t [employer] [facility] Medicine Outpati ent Clinics 2019-08-24 2019-08-24 [facility] [id number] 10:36:00 10:36:00 t [facility] [employer] [facility] Medicine Outpati ent Clinics 2019-07-12 2019-07-12 [facility] [id number] 10[facility]30:00 10:30:00 t Specialty/U Michelle kes - Specialty rology [facility] Clinic Outpati ent Clinics 2019-07-05 2019-07-05 [facility] [id number] 14:15:00 14:15:00 t [employer] [facility] Medicine Outpati ent Clinics 2019-06-06 2019-06-06 Outpatient [facility] [id number] [place] 00:00:00 00:00:[address] 2019-04-05 2019-04-05 [facility] [id number] 14:01:00 14:01:00 t [place] [employer] [facility] Medicine Outpati ent Clinics 2019-04-05 2019-04-05 [facility] [id number] 10:00:00 10:00:00 t [employer] [facility] Medicine Outpati ent Clinics 2019-03-01 2019-03-01 [facility] [id number] 09:15:00 09:15:00 t [place] [employer] [facility] - [facility] Medicine Outpati ent Clinics 2019-01-24 2019-01-24 [facility] [id number] 10:34:00 10:34:00 t Specialty/U Michelle kes - Specialty rology [facility] a /Urology Clinic l Clinic Outpati ent Clinics 2019-01-10 2019-01-10 [facility] [id number] 10:00:00 10:00:00 t Specialty/U Michelle kes - Specialty rology [facility] a /Urology Clinic l Clinic Outpati ent Clinics 2018-12-16 2018-12-16 [facility] [id number] 14:39:00 14:39:00 t Specialty/U Michelle kes - Specialty rology [facility] a /Urology Clinic l Clinic Outpati ent Clinics 2018-11-29 2018-11-29 [facility] [id number] 08:45:00 08:45:00 t [place] [employer] s - Drive [facility] Medicine Outpati ent Clinics 2018-06-14 2018-06-14 [facility] [id number] 10:16:00 10:16:00 t Specialty/U Michelle kes - Specialty rology [facility] a /Urology Clinic l Clinic Outpati ent Clinics 2018-06-08 2018-06-08 [facility] [id number] [address] 11:13:00 11:13:00 t [place] [employer] Reviewer s - Drive [facility] Medicine Medicine Outpati ent Clinics 2018-05-25 2018-05-25 [facility] [id number] 15:26:00 15:26:00 t [place] [employer] s - Drive [facility] l Medicine Outpati ent Clinics 2018-05-16 2018-05-16 [facility] [id number] 15:45:00 15:45:00 t [place] [employer] - Drive [facility] Medicine Outpati ent Clinics 2018-05-03 2018-05-03 [facility] [id number] 14:30:00 14:30:00 t [place] [employer] [facility] - Drive [facility] 2018-04-04 2018-04-04 [facility] [id number] 08:15:00 08:15:[address] [place] [address] [address] [facility] - Drive [facility] ent Clinics 2017-11-24 2017-11-24 [facility] [id number] 09:00:00 09:00:00 t Specialty/U Michelle kes - Specialty rology [facility] /Urology Clinic l Clinic [facility] 2017-11-17 2017-11-17 [facility] [id number] 15:11:00 15:11:00 t [place] [employer] Pancho s - Drive [facility] ent [facility] 2017-11-15 2017-11-15 [facility] [id number] 10:30:00 10:30:00 t [employer] Pancho s - Drive [facility] Results Test Description Test Time Test Comments Results Result [facility] e Comments SURGICAL 2019-06-26 SPECIMENS 18:14:00 RUN DATE: 06/26/19 [facility] - LAB PAGE 1 RUN TIME: 4 Specimen Inquiry RUN USER: INTERFACE PATIENT: RA MAST LOC: Misha POD B U #: [id number] AGE/SX: 59/M ROOM: [facility] RE06/20/19REG DR: Flaquito Rose MD : 62 BED: 1 DIS: 06/21/19 STATUS: DIS IN TLOC: SPEC #: [id number] RECD: 06/20/19 STATUS: LINDA REGulshan #: [id number] PALOMA: 06/20/19-[address]: Flaquito Rose MD ENTERED: 06/20/19-1550 SP TYPE: SURG OTHR DR: ORDERED: PATHGM4, [...] It consists of two irregular pieces of makc-pink and red soft tissue, 0.5 and 1.5 cm. The largest piece is bisected and entirely submitted, along with the smaller piece, in a single cassette. LICENSED STAFF MFT/th CONTINUED ON NEXT PAGE RUN DATE: 06/26/19 [facility] - LAB PAGE 2 RUN TIME: 1813 Specimen Inquiry RUN USER: INTERFACE SPEC #: [id number] PATIENT: RA MAST #[id number] (Continued) MICROSCOPIC DESCRIPTION Performed. Signed SIGNATURE ON FILE Paulina Shrestha 06/26/19 1814 END OF REPORT SURGICAL 2019-06-26 SPECIMENS 18:14:00 RUN DATE: 07/03/19 [facility] - LAB PAGE 1 RUN TIME: 1407 Specimen Inquiry RUN USER: INTERFACE PATIENT: RA MAST LOC: Yennifer Bowers U #: [id number] AGE/SX: 59/M ROOM: [facility] RE06/20/19[facility] DR: Flaquito Rose MD : 62 BED: 1 DIS: 06/21/19 STATUS: DIS IN TLOC: SPEC #: [id number] RECD: 06/20/19-2939 STATUS: SOUMaddy REQ #: [id number] PAL[place]: 06/20/19-1214 [facility] DR: Flaquito Rose MD ENTERED: 06/20/19-2087 SP TYPE: SURG OTHR DR: ORDERED: PATHGM4, PATH SPEC, H E STAIN HISTOLOGY: TISSUE ID BLK PCS RAYMOND LEV / PROCEDURE DISPOSITION ____ ___ ___ ___ ___ RECTAL BX A 1 1 TISSUES: A. RECTAL BX - Rectal Cancer ADDENDUM FINDINGS Addendum #1 Entered: 07/03/19-2172 The purpose of this addendum is to report results of mismatch repair protein expression by immunohistochemistry. For complete results please see corresponding Integrated Oncology Report ([id number]). DIAGNOSIS: MLH1 - expressed MSH2 - expressed MSH6 - expressed PMS2 Global - expressed These results show no deficiency of the mismatch repair proteins tested. Addendum Signed SIGNATURE ON FILE Lucila Hogan 07/03/19 140 CLINICAL HISTORY Colorectal Cancer COMMENT Tumor is invading into the submucosa and is focally present at a peripheral tissue edge. No muscularis propria is identified. The above results were discussed with Dr. Rose on June 26, 2019 at 6:00 pm. Multiple tissue levels were examined. This case was reviewed by multiple CONTINUED ON NEXT PAGE RUN DATE: 07/03/19 [facility] - LAB PAGE 2 RUN TIME: 1407 Specimen Inquiry RUN USER: INTERFACE SPEC #: [id number] PATIENT: RA MAST #[id number] (Continued) COMMENT (Continued) pathologists in intradepartmental consultation, [...] the smaller piece, in a single cassette. LICENSED STAFF MFT/th MICROSCOPIC DESCRIPTION Performed. Signed SIGNATURE ON FILE Paulina Shrestha 06/26/19 1814 END OF REPORT GLUBED 2019-06-21 11:47:00 Test Item Value Reference Range Interpretation Comme nts GLUBED (test code = GLUBED) 94 MG/DL 70-105 N [id number] 08:13:00 Test Item Value Reference Range Interpretation Comments GLUBED (test code = GLUBED) 114 MG/DL 70-105 H BASIC METABOLIC [id number] 05:14:00 Test Item Value Reference Range Interpretation [...] mg/dL 8.8-10.2 N = CA) CBC W/AUTO [id number] 05:07:00 Test Item Value Reference Range Interpretation [...] BA#) 0.02 x10 3/uL 0.0-0.20 N AG [id number] 04:07:00 Test Item Value Reference Interpretation Comments Range AG CARCINOEMBRYONIC 1.1 ng/mL 0.0-4.7 (test code = CEA) Nonsmokers <3.9 Smokers <5.6[employer] Electrochemilum inescence Immunoassay(ECL IA)Values obtained with d ifferent assay methods o r kitscannot be used interch angeably. Results cannot beinterpreted as absolute peterson dence of the presence orabse nce of malignant disea se.Performed At: [facility] [address] [id number] Kyle L MD Ph:[phone] [id number] 22:39:00 Test Item Value Reference Range Interpretation Comments GLUBED (test code = GLUBED) 101 MG/DL 70-105 N [id number] 17:26:00 Test Item Value Reference Range Interpretation Comments GLUBED (test code = GLUBED) 144 MG/DL 70-105 H [id number] 13:37:00 Test Item Value Reference Range Interpretation Comments GLUBED (test code = GLUBED) 96 MG/DL 70-105 N COMPREHENSIVE METABOLIC [id number] 14:24:00 Test Item Value Reference Range Interpretation [...] PHOSPHATASE (test code = ALKP) CBC W/AUTO [id number] 13:38:00 Test Item Value Reference Range Interpretation [...]
[2020-06-02 13:02] LABS: Absolute Lymphocytes (CBC) 0.8 K/uL (0.7-4.9); Basophils % 0.4 % (0-1.3); Lymphocytes % 7.9 % (15.3-44.8); MPV 8.2 fL (7.6-11.3); RBC Red Blood Cell Count 4.64 M/uL (4.33-5.43)
[2020-06-02 13:08] LABS: Protime INR 1.08
[2020-06-02] MEDS ORDERED: HYDROMORPHONE HCL 1 MG/ML INJ ONE ×2 (13:14→13:49)
[2020-06-02] MEDS ORDERED: ONDANSETRON 4 MG/2 ML VIAL ONE (13:14)
[2020-06-02 13:21] LABS: Blood Morphology Comment NOT SEEN (NOT SEEN); Platelet Estimate ADEQ; White Blood Cell Scan OK (OK)
[2020-06-02 13:23] LABS: ALT/SGPT 95 U/L (12-78); AST/SGOT 58 U/L (15-37); Albumin 3.9 g/dL (3.4-5.0); Alkaline Phosphatase 84 U/L (45-117); BUN Blood Urea Nitrogen 11 mg/dL (7-18); Bicarbonate 25 mmol/L (21-32); Bilirubin Direct 0.2 mg/dL (0-0.2); Bilirubin Total 0.5 mg/dL (0.2-1.0); Glucose Level 131 mg/dL (74-106); Lipase 49 U/L (73-393); Magnesium 1.9 mg/dL (1.8-2.4); NT PRO-BNP 15 pg/mL (<125); Potassium 4.1 mmol/L (3.5-5.1); Protein, Total 7.7 g/dL (6.4-8.2); Sodium Level 140 mmol/L (136-145); Troponin (Emerg Dept Use Only) < 0.02 ng/mL (0.0-0.045)
--- NOTE | 2020-06-02 13:23 | RAD REPORT ---
EXAM DESCRIPTION: CT - Stone Protocol - 06/02/2020 1:10 pm CLINICAL HISTORY: Flank pain. FLANK PAIN COMPARISON: CT ABD PELVIS W CONTRAST dated 06/29/2008 TECHNIQUE: Axial images were obtained without oral or IV contrast. Lack of contrast limits solid org an and vascular assessment. The [id number]-cr-[id number] spans the entirety of the system partially obscuring uppermost abdomen and lung bases. Coronal reformatted images were obtained and reviewed. All CT scans are performed using dose optimization technique as appropriate and may include automated exposure control or mA/KV adjustment according to patient size. FINDINGS: The lower lung waters are clear. Imaged portions of the liver and spleen show no suspicious findings on non-contrast imaging.Probable fatty liver. Cholecystectomy. The pancreas and adrenal glands are normal. No pathologic lymphadenopat hy in the abdomen or pelvis. Mild left-sided hydronephrosis and hydroureter is present. There appears to be a 3 mm calculus in the urinary bladder. This would indicate recent passage of a stone on the left. No right-sided stone or hydronephrosis. No bowel obstruction, free air, free fluid or abscess. Normal appendix noted.Small bilateral fat cont aining inguinal hernias. Mild lumbosacral degenerative changes. IMPRESSION: Mild residual left-sided hydronephrosis and hydroureter is present. 3 mm calculus is not ed in the urinary bladder, suspicious for a recently passed left-sided stone.
--- NOTE | 2020-06-02 13:52 | RAD REPORT ---
EXAM DESCRIPTION: RAD - Chest Single View - 06/02/2020 1:35 pm CLINICAL HISTORY: CHEST PAIN Chest pain. COMPARISON: Chest Pa And Lat (2 Views) dated 12/19/2019; Chest Single View dated 09/06/2019; Chest Pa And Lat (2 Views) dated 09/04/2019; Chest Pa And Lat (2 Views) dated 05/05/2018 FINDINGS: Portable technique limits examination quality. The lungs are grossly clear. The heart is mildly enlarged. No displaced fractures.
[2020-06-02 15:17] LABS: Urine Amorphous Sediment 1+ /HPF (NONE SEEN); Urine Bacteria <20 /HPF (NONE SEEN); Urine Mucus 1+ /HPF (NONE SEEN); Urine RBC 20-50 /HPF (NONE SEEN)
--- NOTE | 2020-06-02 15:36 | EDPHYS ---
Physician Documentation [facility] Name: Tariq Garcia Age: 60 yrs Sex: Male : 1960 Arrival Date: 06/02/2020 Time: 12:23 Bed 15 Private MD: [facility] ED Physician Stanley Zuniga HPI: 06/02 12:46 This 60 yrs old Male presents to ER via Wheelchair with complaints of Flank pm1 Pain. 12:46 The patient complains of pain in the left low back. The pain does not radiate. Onset: pm1 The symptoms/episode began/occurred 3 hour(s) ago. Modifying factors: The symptoms are alleviated by nothing. the symptoms are aggravated by nothing. Associated signs and symptoms: Pertinent positives: nausea, chest pain, shortness of breath, Pertinent negatives: diarrhea, dizziness, dysuria, fever, headache. Severity of pain: in the emergency department the pain is actually worse. The patient has experienced similar episodes in the past, a few times, and the symptoms today are exactly the same, to previous kidney stones. It is unknown whether or not the patient has recently seen a physician. Historical: - Allergies: 12:37 Latex, Natural Rubber; ca1 12:37 Morphine; ca1 - PMHx: 12:37 Diabetes - NIDDM; Hypertension; Hypothyroidism; Seizures; ca1 - Immunization history:: Flu vaccine is up to date. - Social history:: Smoking status: Patient denies any tobacco usage or history of. ROS: 12:46 Constitutional: Negative for fever, chills, and weight loss. pm1 12:46 MS/Extremity: Negative for injury and deformity, Skin: Negative for injury, rash, and discoloration, Neuro: Negative for headache, weakness, numbness, tingling, and seizure. 12:46 Cardiovascular: Positive for chest pain, Negative for edema, palpitations. 12:46 Respiratory: Positive for shortness of breath, Negative for cough, sputum production, wheezing. 12:46 Abdomen/GI: Positive for nausea, Negative for abdominal pain, vomiting, diarrhea. 12:46 Back: Positive for flank pain, on the left. 12:46 : Positive for flank pain, Negative for urinary symptoms. Exam: 12:46 Constitutional: This is a well developed, well nourished patient who is awake, alert, pm1 and in no acute distress. Head/Face: Normocephalic, atraumatic. 12:46 Skin: Warm, dry with normal turgor. Normal color with no rashes, no lesions, and no evidence of cellulitis. MS/ Extremity: Pulses equal, no cyanosis. Neurovascular intact. Full, normal range of motion. 12:46 Cardiovascular: Exam negative for acute changes, Rate: normal, Rhythm: regular, Pulses: no pulse deficits are appreciated, Edema: is not appreciated. 12:46 Respiratory: Exam negative for acute changes, respiratory distress, shortness of breath. 12:46 Abdomen/GI: Inspection: obese Palpation: abdomen is soft and non-tender, in all quadrants. 12:46 Back: CVA tenderness, is noted on the left. 12:46 Neuro: Exam negative for acute changes, Orientation: is normal, Mentation: is normal, Motor: is normal, moves all fours. Vital Signs: 12:34 BP 142 / 78; Pulse 61; Resp 18 S; Temp 97.7(TE); Pulse Ox 97% on R/A; Weight 158.76 kg ca1 (R); Height 5 ft. 7 in. (170.18 cm) (R); Pain 10/10; 13:38 BP 140 / 88; Pulse 82; Resp 19 S; Pulse Ox 94% on R/A; jd3 15:56 BP 143 / 86; Pulse 78; Resp 17 S; Pulse Ox 95% on R/A; jd3 12:34 Body Mass Index 54.82 (158.76 kg, 170.18 cm) ca1 MDM: 12:39 Patient medically screened. [facility] 14:39 Data reviewed: vital signs. Data interpreted: Pulse oximetry: on room air is 97 %. pm1 Interpretation: normal. Counseling: I had a detailed discussion with the patient and/or guardian regarding: the historical points, exam findings, and any diagnostic results supporting the discharge/admit diagnosis, lab results, radiology results, the need for outpatient follow up, to return to the emergency department if symptoms worsen or persist or if there are any questions or concerns that arise at home. 06/02 12:46 Order name: Basic Metabolic Panel pm1 06/02 12:46 Order name: CBC with Diff pm1 06/02 12:46 Order name: LFT's pm1 06/02 12:46 Order name: Magnesium pm1 06/02 12:46 Order name: NT PRO-BNP pm1 06/02 12:46 Order name: PT-INR pm06/02 12:46 Order name: Troponin (emerg Dept Use Only) pm06/02 12:46 Order name: Lipase pm1 06/02 12:46 Order name: Urine Microscopic Only; Complete Time: 15:34 pm1 06/02 13:04 Order name: CBC with Automated Diff; Complete Time: 13:28 EDMS 06/02 13:08 Order name: Protime (+INR); Complete Time: 13:28 EDMS 06/02 13:22 Order name: CBC Smear Scan; Complete Time: 13:28 EDMS 06/02 13:23 Order name: Basic Metabolic Panel; Complete Time: 13:28 EDMS 06/02 13:23 Order name: Liver (Hepatic) Function; Complete Time: 13:28 EDMS 06/02 12:46 Order name: XRAY Chest (1 view) pm1 06/02 12:46 Order name: EKG; Complete Time: 12:47 pm1 06/02 12:46 Order name: Cardiac monitoring; Complete Time: 12:46 pm1 06/02 12:46 Order name: EKG - Nurse/Tech; Complete Time: 12:46 pm1 06/02 12:46 Order name: CT Stone Protocol pm06/02 13:23 Order name: Troponin (Emerg Dept Use Only); Complete Time: 13:28 EDMS 06/02 13:23 Order name: NT PRO-BNP; Complete Time: 13:28 EDMS 06/02 13:23 Order name: Magnesium; Complete Time: 13:28 EDMS 06/02 13:23 Order name: Lipase; Complete Time: 13:28 EDMS 06/02 13:24 Order name: CT; Complete Time: 13:28 EDMS 06/02 13:52 Order name: RAD; Complete Time: 13:54 EDMS 06/02 15:09 Order name: Urine Dipstick--Ancillary (enter results) 06/02 12:46 Order name: IV Saline Lock; Complete Time: 13:03 pm1 06/02 12:46 Order name: Labs collected and sent; Complete Time: 13:03 pm1 06/02 12:46 Order name: O2 Per Protocol; Complete Time: 13:03 pm1 06/02 12:46 Order name: O2 Sat Monitoring; Complete Time: 13:03 pm1 06/02 12:46 Order name: Urine Dipstick-Ancillary (obtain specimen); Complete Time: 15:00 pm1 06/02 12:46 Order name: EKG - Nurse/Tech; Complete Time: 12:46 ca1 Administered Medications: 13:02 Drug: Dilaudid 1 mg Route: IVP; Site: right antecubital; jd3 13:30 Follow up: Response: No adverse reaction; Pain is unchanged, physician notified; RASS: jd3 Restless (+1) 13:03 Drug: Zofran (Ondansetron) 4 mg Route: IVP; Site: right antecubital; jd3 14:00 Follow up: Response: No adverse reaction jd3 13:35 Drug: Dilaudid 1 mg Route: IVP; Site: right antecubital; jd3 14:30 Follow up: Response: No adverse reaction; RASS: Alert and Calm (0) jd3 Disposition: 06/02/20 15:35 Discharged to Home. Impression: Calculus in bladder. - Condition is Stable. - Discharge Instructions: Kidney Stones, Dietary Guidelines to Help Prevent Kidney Stones. - Prescriptions for Tylenol- Codeine #3 300-30 mg Oral Tablet - take 2 tablets by ORAL route every 4-6 hours As needed; 20 tablet. - Medication Reconciliation Form, Thank You Letter, Antibiotic Education, Prescription Opioid Use form. - Follow up: Emergency Department; When: As needed; Reason: Worsening of condition. Follow up: Private Physician; When: 2 - 3 days; Reason: Recheck today's complaints, Continuance of care, Re-evaluation by your physician. - Problem is new. - Symptoms have improved. Addendum: 06/03/2020 19:47 Co-signature as Attending Physician, Stanley Zuniga MD I agree with the assessment and c chatterjee plan of care. Signatures: Dispatcher [employer] Stanley Velez MD MD cha Marinas, Patrick, TAIL BOARD WORKER TAIL BOARD WORKER pm1 Leroy Ascencio RN RN jd3 Carole Florence RN RN ca1 Corrections: (The following items were deleted from the chart) 06/02 15:58 15:35 06/02/2020 15:35 Discharged to Home. Impression: Calculus in bladder. Condition jd3 is Stable. Forms are Medication Reconciliation Form, Thank You Letter, Antibiotic Education, Prescription Opioid Use. Follow up: Emergency Department; When: As needed; Reason: Worsening of condition. Follow up: Private Physician; When: 2 - 3 days; Reason: Recheck today's complaints, Continuance of care, Re-evaluation by your physician. Problem is new. Symptoms have improved. pm1
--- NOTE | 2020-06-02 15:36 | ER ---
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 Reports Chest Pain at this time. Reports SOB. Coronavirus screen: Client denies travel out of the [place] in the last 14 days. shortness of breath, Client presents with at least one sign or symptom that may indicate coronavirus-19. Standard/surgical mask placed on the client. Provider contacted for isolation considerations. Ebola Screen: Patient negative for fever greater than or equal to 101.5 degrees Fahrenheit, and additional compatible Ebola Virus Disease symptoms Patient denies exposure to infectious person. Patient denies travel to an Ebola-affected area in the 21 days before illness onset. No symptoms or risks identified at this time. Initial Sepsis Screen: Does the patient meet any 2 criteria? No. Patient's initial sepsis screen is negative. Does the patient have a suspected source of infection? No. Patient's initial sepsis screen is negative. Risk Assessment: Do you want to hurt yourself or someone else? Patient reports no desire to harm self or others. Onset of symptoms was June 02, 2020. 12:34 Method Of Arrival: Wheelchair ca1 12:34 Acuity: ELA 2 ca1 Historical: - Allergies: 12:37 Latex, Natural Rubber; ca1 12:37 Morphine; ca1 - PMHx: 12:37 Diabetes - NIDDM; Hypertension; Hypothyroidism; Seizures; ca1 - Immunization history:: Flu vaccine is up to date. - Social history:: Smoking status: Patient denies any tobacco usage or history of. Screenin:43 Abuse screen: Denies threats or abuse. Nutritional screening: No deficits noted. jd3 Tuberculosis screening: No symptoms or risk factors identified. Fall Risk Ambulatory Aid- None/Bed Rest/Nurse Assist (0 pts). Gait- Normal/Bed Rest/Wheelchair (0 pts) Mental Status- Oriented to own ability (0 pts). Total Arroyo Fall Scale indicates No Risk (0-24 pts). Assessment: 12:55 General: Appears uncomfortable, Behavior is calm, cooperative, appropriate for age. jd3 Pain: Complains of pain in left flank Pain radiates to groin Quality of pain is described as sharp, shooting. Neuro: Level of Consciousness is awake, alert, obeys commands, Oriented to person, place, time, situation. Cardiovascular: Reports chest pain, Capillary refill < 3 seconds Patient's skin is warm and dry. Rhythm is regular. Respiratory: Airway is patent Respiratory effort is even, unlabored, Respiratory pattern is regular, symmetrical, Denies cough, shortness of breath. GI: Abdomen is round obese, Abd is soft X 4 quads Abdomen is tender to palpation in left upper quadrant and left lower quadrant Reports nausea. : No signs and/or symptoms were reported regarding the genitourinary system. EENT: No signs and/or symptoms were reported regarding the EENT system. Derm: Skin is intact, Skin is dry, Skin is normal, Skin temperature is warm. Musculoskeletal: Circulation, motion, and sensation intact. Range of motion: intact in all extremities. 13:42 Reassessment: No changes from previously documented assessment. Patient and/or family jd3 updated on plan of care and expected duration. Pain level reassessed. Patient is alert, oriented x 3, equal unlabored respirations, skin warm/dry/pink. pt reports pain continuing. provider notified. 15:56 Reassessment: Patient appears in no apparent distress at this time. Patient and/or jd3 family updated on plan of care and expected duration. Pain level reassessed. Patient is alert, oriented x 3, equal unlabored respirations, skin warm/dry/pink. Patient states feeling better. Vital Signs: 12:34 BP 142 / 78; Pulse 61; Resp 18 S; Temp 97.7(TE); Pulse Ox 97% on R/A; Weight 158.76 kg ca1 (R); Height 5 ft. 7 in. (170.18 cm) (R); Pain 10/10; 13:38 BP 140 / 88; Pulse 82; Resp 19 S; Pulse Ox 94% on R/A; jd3 15:56 BP 143 / 86; Pulse 78; Resp 17 S; Pulse Ox 95% on R/A; jd3 12:34 Body Mass Index 54.82 (158.76 kg, 170.18 cm) ca1 ED Course: 12:23 Patient arrived in ED. am2 12:23 Mango Forte DO is Private Physician. am2 12:36 Triage completed. ca1 12:37 Arm band placed on right wrist. ca1 12:38 Chino Pineda NP is PHCP. pm1 12:38 Stanley Zuniga MD is Attending Physician. pm1 12:55 Leroy Ascencio RN is Primary Nurse. jd3 12:55 Inserted saline lock: 20 gauge in right antecubital area, using aseptic technique. jd3 Blood collected. 13:43 Patient has correct armband on for positive identification. Bed in low position. Call jd3 light in reach. Side rails up X2. 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 Pulse ox on. NIBP on. 15:57 No provider procedures requiring assistance completed. IV discontinued, intact, jd3 bleeding controlled, No redness/swelling at site. Pressure dressing applied. Administered Medications: 13:02 Drug: Dilaudid 1 mg Route: IVP; Site: right antecubital; jd3 13:30 Follow up: Response: No adverse reaction; Pain is unchanged, physician notified; RASS: jd3 Restless (+1) 13:03 Drug: Zofran (Ondansetron) 4 mg Route: IVP; Site: right antecubital; jd3 14:00 Follow up: Response: No adverse reaction jd3 13:35 Drug: Dilaudid 1 mg Route: IVP; Site: right antecubital; jd3 14:30 Follow up: Response: No adverse reaction; RASS: Alert and Calm (0) jd3 Outcome: 15:35 Discharge ordered by . pm1 15:57 Discharged to home ambulatory, with family. jd3 15:57 Condition: stable 15:57 Discharge instructions given to patient, Instructed on discharge instructions, follow up and referral plans. medication usage, Demonstrated understanding of instructions, follow-up care, medications, Prescriptions given X 1. 15:58 Patient left the ED. jd3 Signatures: Chino Pineda NP SERVICE CAPTAIN pm1 Jovana Becerril am2 Leroy Ascencio RN RN jd3 Carole Florence RN RN ca1 Corrections: (The following items were deleted from the chart) 13:43 13:43 Pulse ox on. NIBP on. jd3 jd3
[2020-06-02 16:10] LABS: Urine Blood 2+ (NEG); Urine Glucose NEGATIVE (NEG); Urine Protein NEGATIVE (NEG); Urine Specific Gravity 1.025 (1.005-1.030)
[2020-06-02 17:33] VITALS: TEMP 97.7
[2020-06-02 17:36] VITALS: BP 143/86; O2SAT 95
== END 2020-06-02 15:58 | disposition home or self-care (01) ==
LOC: ER 12:22
DX: N21.0 Calculus in bladder (principal); I10 Essential (primary) hypertension; Z88.5 Allergy status to narcotic agent; Z91.040 Latex allergy status; Z91.048 Other nonmedicinal substance allergy status
CPT/HCPCS: 93005; 85025; 80048; 36415; 83735; 85610; 80076; 84484; 83690; 83880; 76377; 74176; 71045; 96375; 96374; 99284; J1170 ×2; J2405; 81003; 81015

== ENCOUNTER 2020-06-12 06:15 | Day surgery (SDC) | payer OTHER ==
[2020-06-12] MEDS ORDERED: NA CHLORIDE 0.9% 1,000 ML ONE (06:52)
[2020-06-12] MEDS ORDERED: MIDAZOLAM HCL 2 MG/2 ML INJ ONE (07:38)
[2020-06-12] MEDS ORDERED: propofoL 200 MG/20 ML VIAL IV ONE (07:38)
--- NOTE | 2020-06-12 08:34 | ENDO RPT ---
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 ESTIMATED BLOOD LOSS: None CONSENT: The patient understands the risks and benefits of the procedure and understands that these risks include, but are not limited to: sedation, allergic reaction, infection, perforation and/or bleeding. Alternative means of evaluation and treatment include, among others: physical exam, x-rays, and/or surgical intervention. The patient elects to proceed with this endoscopic procedure. DESCRIPTION OF PROCEDURE: During intra-op preparation period all mechanical medical equipment was checked for proper function. Hand hygiene and appropriate measures for infection prevention was taken. Procedure, possible complications, alternatives including, but not limited to possibility of bleeding, perforation, tear, infection, sepsis, need for surgery, need for blood transfusion, were explained to the patient. After the risks, benefits and alternatives of the procedure were thoroughly explained, Informed consent was verified, confirmed and timeout was successfully executed by the treatment team. The patient was placed in the left lateral position. A digital rectal exam was performed and revealed external hemorrhoids. After appropriate level of anesthesia, the scope was passed. The EC-[id number] ([id number]) and [id number] ([id number]) endoscope was introduced through the anus and advanced to the cecum, which was identified by transillumination from the light source, the appendix, and the ileocecal valve. The quality of the prep was good. The instrument was then slowly withdrawn as the colon was fully examined. Scope withdrawal time was . COLON FINDINGS: Multiple sessile polyps were found less than 0.5cm in size located approximately 90, 85, 80, 120, 150cm,from anal verge and cecum . Retroflexed views revealed no abnormalities. The scope was then completely withdrawn from the patient and the procedure terminated. ADVERSE EVENTS: There were no complications. IMPRESSIONS: Multiple sessile polyps were found; polypectomy was performed in a piecemeal fashion using hot forceps RECOMMENDATIONS: 1. follow-up: office 1 week(s) 2. no seeds in diet RECALL: for Colonoscopy, pending biopsy results. Leonardo Ibarra MD eSigned: Leonardo Ibarra MD 06/12/2020 8:33 AM cc: Laura Roca M.D and José Miguel Rose M.D. CPT CODES: ICD9 CODES: PATIENT NAME: Tariq Garcia MR#: [id number]
[2020-06-12 08:43] VITALS: TEMP 98.7
[2020-06-12 08:45] VITALS: BP 104/60; O2SAT 95
== END 2020-06-12 08:45 | disposition home or self-care (01) ==
LOC: OR 06:15
PROVIDERS: ATTEND Surgery
PROC: 0DBP8ZX Excision of Rectum, Via Natural or Artificial Opening Endoscopic, Diagnostic (ICD-10-PCS; 2020-06-12)
PROC: 0DBH8ZX Excision of Cecum, Via Natural or Artificial Opening Endoscopic, Diagnostic (ICD-10-PCS; principal; 2020-06-12 07:30)
DX: D12.7 Benign neoplasm of rectosigmoid junction (principal); D12.0 Benign neoplasm of cecum; E11.9 Type 2 diabetes mellitus without complications; E03.9 Hypothyroidism, unspecified; I10 Essential (primary) hypertension; E66.01 Morbid (severe) obesity due to excess calories; F41.8 Other specified anxiety disorders; R56.9 Unspecified convulsions; Z85.46 Personal history of malignant neoplasm of prostate; Z20.822 Contact with and (suspected) exposure to COVID-19
CPT/HCPCS: 45384; 82947; 88305; U0003; J2704; J2250; J7030